=== PATIENT | female | born 2000 | race Caucasian/White ===

== ENCOUNTER 2024-11-01 08:54 | Outpatient (OUT) | payer BC, SELFPAY ==
--- NOTE | 2024-11-01 08:58 | US_ITS ---
[address] [address] Patient Name: JUAN BACON MRN: [id number] date: 2000 Sex: F Assigned Patient Location: US Current Patient Location: US Accession/Order Number: [id number] Exam Date: 11/01/2024 09:00 Report Date: 11/01/2024 11:51 At the request of: LUIS EDUARDO PERES Procedure: US OB cervical length EXAMINATION: US OB anatomy, US OB cervical length HISTORY: Related Condition Second Trimester COMPARISON: No relevant comparison available. TECHNIQUE: Transabdominal sonographic examination was performed for obstetrical and evaluation. FINDINGS: Number: 1 Heart Rate: 142.11 bpm H.B. /min Amniotic Fluid Volume: Subjectively normal Placental Location: Anterior with lower margin 2.6 cm from os. Cervix Length: 5.81 cm ; closed. ANATOMY: Normal Structures -cerebellum, choroid plexus, cisterna magna, lateral cerebral ventricles, orbits, midline falx, four-chamber heart, LVOT, stomach, kidneys, bladder, umbilical cord insertion into abdomen, three-vessel cord, cervical spine, thoracic spine, lumbar spine, sacral spine, right upper extremity, left upper extremity, right lower extremity, left lower extremity. SUBOPTIMALLY SEEN: Hard palate, right ventricle outflow tract. ABNORMALITIES: None BIOMETRY: BPD: 4.28 cm; 19 weeks 0 days; 6.60 % HC: 15.97 cm; 18 weeks 6 days; < 3 % AC: 13.49 cm; 19 weeks 0 days; 9.40 % FL: 3.07 cm; 19 weeks 4 days; 17 % EFW:277.18 g; 5.20 % FL/AC: 22.73 FL/BPD: 71.71 HC/AC: 1.18 GESTATIONAL AGE: Age by EDC: 20 weeks 2 days Age by current US: 19 weeks 1 day SONIA by current US: 2025-03-27 SONIA by EDC: 2025-03-19 US/US OB cervical length IMPRESSION: 1. Single live intrauterine with growth detailed above. 2. Suboptimal visualization of the hard palate and right ventricle outflow tract due to position. 3. Head circumference is <3rd percentile. 4. Low-lying anterior placenta. Electronically authenticated by: SHAREE MCCLOUD Date: 11/01/2024 11:51
--- NOTE | 2024-11-01 08:58 | US_ITS ---
[address] [address] Patient Name: JUAN BACON MRN: [id number] date: 2000 Sex: F Assigned Patient Location: US Current Patient Location: US Accession/Order Number: [id number] Exam Date: 11/01/2024 09:00 Report Date: 11/01/2024 11:51 At the request of: LUIS EDUARDO PERES Procedure: US OB anatomy EXAMINATION: US OB anatomy, US OB cervical length HISTORY: Related Condition Second Trimester COMPARISON: No relevant comparison available. TECHNIQUE: Transabdominal sonographic examination was performed for obstetrical and evaluation. FINDINGS: Number: 1 Heart Rate: 142.11 bpm H.B. /min Amniotic Fluid Volume: Subjectively normal Placental Location: Anterior with lower margin 2.6 cm from os. Cervix Length: 5.81 cm ; closed. ANATOMY: Normal Structures -cerebellum, choroid plexus, cisterna magna, lateral cerebral ventricles, orbits, midline falx, four-chamber heart, LVOT, stomach, kidneys, bladder, umbilical cord insertion into abdomen, three-vessel cord, cervical spine, thoracic spine, lumbar spine, sacral spine, right upper extremity, left upper extremity, right lower extremity, left lower extremity. SUBOPTIMALLY SEEN: Hard palate, right ventricle outflow tract. ABNORMALITIES: None BIOMETRY: BPD: 4.28 cm; 19 weeks 0 days; 6.60 % HC: 15.97 cm; 18 weeks 6 days; < 3 % AC: 13.49 cm; 19 weeks 0 days; 9.40 % FL: 3.07 cm; 19 weeks 4 days; 17 % EFW:277.18 g; 5.20 % FL/AC: 22.73 FL/BPD: 71.71 HC/AC: 1.18 GESTATIONAL AGE: Age by EDC: 20 weeks 2 days Age by current US: 19 weeks 1 day SONIA by current US: 2025-03-27 SONIA by EDC: 2025-03-19 US/US OB anatomy IMPRESSION: 1. Single live intrauterine with growth detailed above. 2. Suboptimal visualization of the hard palate and right ventricle outflow tract due to position. 3. Head circumference is <3rd percentile. 4. Low-lying anterior placenta. Electronically authenticated by: SHAREE MCCLOUD Date: 11/01/2024 11:51
== END 2024-11-01 08:55 | disposition home or self-care (01) ==
LOC: US 08:54
PROVIDERS: PCP Nurse Practitioner Family; Visit Provider Midwife
DX: O44.42 Low lying placenta NOS or without hemorrhage, second trimester (principal); O26.92 Pregnancy related conditions, unspecified, second trimester; Z3A.20 20 weeks gestation of pregnancy
CPT/HCPCS: 76805; 76817

== ENCOUNTER 2025-03-20 04:58 | Inpatient (IN) | payer BC, SELFPAY ==
--- OUTSIDE RECORDS SUMMARY | 2025-03-12 09:30 | XMS_ITS | Encounter Summary ---
Author Organization [facility] Address [address] [place] [address] Care Team Providers Care Soaking Room Operator Name Role Phone Lillie Barry NP Unavailable [phone] Amanda Urrutia MD Primary Care Provider Encounter Details Date Type Department Care Team (Latest Contact Info) Description 03/12/2025 9:30 AM EDT Routine [facility] [address] [place] [address] Krista Euceda, CNM [address] [place] [address] Encounter for supervision of other normal , third trimester ([facility]) (Primary Dx) Social History Tobacco Use Types Packs/Day Years Used Date Smoking Tobacco: Never Smokeless Tobacco: Never Alcohol Use Standard Drinks/Week Comments Not Currently 0 (1 standard drink = 0.6 oz pure alcohol) Caffeine: 4 cups of coffee daily Estimated Date of Delivery Comme nts Yes 03/19/2025 Based on last me nstrual period of 06/12/2024 (Exact Date) Sex and Gender Information Value Date Recorded Sex Assigned at Not on file Legal Sex Female 7:36 PM EDT Gender Identity Not on file Sexual Orientation Not on file documented as of this encounter Last Filed Vital Signs Vital Sign Reading Time Taken Comments Blood Pressure 110/60 03/12/2025 9:33 AM EDT Pulse - - Temperature - - Respiratory Rate - - Oxygen Saturation - - Inhaled Oxygen Concentration - - Weight 80.3 kg (177 lb) 03/12/2025 9:33 AM EDT Height - - Body Mass Index 32.37 05/06/2024 10:39 AM EDT documented in this encounter Progress Notes * Krista Euceda CNM - 03/12/2025 9:30 AM EDT Subjective No chief complaint on file. Stephanie Salas is a 25 y.o. at 39w0d with a working estimated date of delivery of 03/19/2025, by Last Menstrual Period who presents for a routine visit. She denies vaginal bleeding, leakage of fluid, decreased movements, or contractions. OB History Para Term AB Living 3 1 1 1 SAB IAB Ectopic Multiple Live Births # Outcome Date GA Lbr Yusuf/2nd Weight Sex Type Anes PTL Lv 3 Current 2 Term 01/12/22 40w0d 6 lb 4 oz F Vag-Spont N Comments: 2nd degree and right labial repair 1 Her is complicated by: Heart murmer sees cardiology Objective Physical Exam Weight: 177 lb Expected Total Weight Gain: 15 lb-25 lb Pregravid BMI: 27.25 BP: 110/60 Urine protein-negative Urine glucose-negative Assessment/Plan Continue vitamin. Labs reviewed. GBS taken. Expected mode of delivery vaginal Follow up in 1 week for a routine visit. documented in this encounter Plan of Treatment Upcoming Encounters Date Type Department Care Team (Late st Contact Info) Description 04/02/2025 11:30 AM EDT Telemedicine [facility] [address] [place] [address] Krista Euceda CNM [address] [place], [place] [id number] documented as of this encounter Visit Diagnoses Diagnosis Encounter for supervision of other normal , third trimester ([facility])- Primary documented in this encounter Care Teams Soaking Room Operator Relationship Specialty Start Date End Date Amanda Urrutia MD [address] [place], [place] [id number] PCP - General Family Medicine 04/10/24 Lillie Barry NP [address] [id number] Nurse Practitioner Family Medicine 04/10/24 documented as of this encounter
--- OUTSIDE RECORDS SUMMARY | 2025-03-18 09:30 | XMS_ITS | Encounter Summary ---
Author Organization [facility] Address [address] [place] [address] Care Team Providers Care Floatman Name Role Phone Lillie Barry NP Unavailable Amanda Urrutia MD Primary Care Provider [phone] Encounter Details Date Type Department Care Team (Latest Contact Info) Description 03/18/2025 9:30 AM EDT Routine [facility] [address] [place] [address] Krista Euceda, CNM [address] [place] [address] Encounter for supervision of other normal , third trimester ([facility]) (Primary Dx); History of cardiac murmur Social History Tobacco Use Types Packs/Day Years [...] Sign Reading Time Taken Comments Blood Pressure 118/80 03/18/2025 9:27 AM EDT Pulse - - Temperature - - Respiratory Rate - - Oxygen Saturation - - Inhaled Oxygen Concentration - - Weight 78.9 kg (174 lb) 03/18/2025 9:27 AM EDT Height - - Body Mass Index 31.83 05/06/2024 10:39 AM EDT documented in this encounter Progress Notes * Krista Euceda CNM - 03/18/2025 9:30 AM EDT Subjective No chief complaint on file. Stephanie Salas is a 25 y.o. at 39w6d with a working estimated date of delivery [...] repair 1 Her is complicated by: Heart murmer. Objective Physical Exam Weight: 174 lb Expected Total Weight Gain: 15 lb-25 lb Pregravid BMI: 27.25 BP: 118/80 Urine protein-negative Urine glucose-negative Assessment/Plan Continue vitamin. Labs reviewed. GBS taken. Expected mode of delivery Follow up in 1 week for a routine visit. documented in this encounter Plan of Treatment Upcoming Encounters Date Type Department Care Team (Late st Contact Info) Description 04/02/2025 11:30 AM EDT Telemedicine [facility] [address] [place] [address] Krista Euceda CNM [address] [place] [address] documented as of this encounter Visit Diagnoses Diagnosis Encounter for supervision of other normal , third trimester ([facility])- Primary History of cardiac murmur Personal history of other diseases of circulatory system documented in this encounter Care Teams Floatman Relationship Specialty Start Date End Date Amanda Urrutia MD [address] [place], [place] [phone] PCP - General Family Medicine 04/10/24 Lillie Barry NP [address] [place] [address] Nurse Practitioner Family Medicine 04/10/24 documented as of this encounter
[2025-03-20] VITALS (36 sets, daily range): BP systolic 92–129; BP diastolic 50–78; PULSE 49–95; TEMP 35.5–36.6
--- OUTSIDE RECORDS SUMMARY | 2025-03-20 05:05 | XMS_ITS | CCD ---
Author Organization [facility] Care Team Providers Care Collator Hand Name Role Phone MARKER, LUIS FERNANDO Unavailable Unavailable MARKER, LUIS FERNANDO Unavailable Unavailable MISC, DOCTOR Unavailable Unavailable PATRIC RUEDA Unavailable Unavailable SHAREE GUZMAN Attending Unaakila ilable MIKI PENALOZA Primary Care Unavailable MIKI PENALOZA Consulting Unavailable Miki Penaloza Primary Care Provider Miki Penaloza Primary Care Provider Miki Penaloza Primary Care Provider Gianna ESTRADA Audrey Primary Care Provider GIANNA AUDREY Primary Care Unavailable GIANNA, AUDREY Primary Care Unavailable CASSIUS HOSKINS Attending Unavailable Asha BI LEAD, Lillie Unavailable Amanda Urrutia MD Primary Care Provider Unavailable Primary Care Provider Unavailabl e Unavailable Primary Care Provider Unavailabl e FLORO, LUIS EDUARDO Referring Unavailable GALLO CASTROA Attending Unavailable FLORO, LUIS EDUARDO Referring Unavailable FLORO, LUIS EDUARDO Referring Unavailable BOUMEGOUAS, MANEL Attending Unavailable BOUMEGOUAS, MANEL Referring Unavailable BOUMEGOUAS, MANEL Attending Unavailable BOUMEGOUAS, MANEL Referring Unavailable FLORO, LUIS EDUARDO L Attending Unavailable FLORO, LUIS EDUARDO L Attending Unavailable FLORO, LUIS EDUARDO L Attending Unavailable FLORO, LUIS EDUARDO L Referring Unavailable FLORO, LUIS EDUARDO L Attending Unavailable FLORO, LUIS EDUARDO L Attending Unavailable KAMLILLIE ROJAS Attending Unavailable FLORO, LUIS EDUARDO L Attending Unavailable FLORO, LUIS EDUARDO L Attending Unavailable FLORO, LUIS EDUARDO L Attending Unavailable FLORO, LUIS EDUARDO L Attending Unavailable FLORO, LUIS EDUARDO L Attending Unavailable LUIS EDUARDO EUCEDA Attending Unavailable LILLIE BARRY Attending Unavailable LUIS EDUARDO EUCEDA Attending Unavailable LUIS EDUARDO EUCEDA Referring Unavailable LUIS EDUARDO EUCEDA Attending Unavailable LUIS EDUARDO EUCEDA Attending Unavailable LUIS EDUARDO EUCEDA Referring Unavailable Medications Current Medications Medication Drug Class(es) Dates Sig (Normalized) Sig (Original) acetaminophen 325 mg / HYDROcodone bitartrate 5 mg oral tablet (2 sources) Opioid Agonist Start: 09-06-2019 HYDROcodone-acetam inophen (NORCO) 5-325 MG per tablet 1 tablet Start: 09-06-2019 End: 09-13-2019 HYDROcodone-acetaminophen (N ORCO) 5-325 MG per tablet Indications: New ACL tear, right, initial encounter Take 1 tablet by mouth every 4 hours as needed for Pain for up to 7 days. Intended supply: 3 days. Take lowest dose possible to manage pain 30 tablet 0 09/06/2019 09/13/2019 Active benzocaine 200 mg/ml / menthol 5 mg/ml topical spray (1 source) Standardized Chemical Allergen Start: 01-12-2022 benzocaine-menthol (DERMOPLAST) 20-0.5 % spray cefdinir 300 mg oral capsule (1 source) Cephalosporin Antibacterial Start: 01-17-2022 End: 01-24-2022 take 1 capsule by mouth twice daily cefdinir (OMNICEF) 300 MG capsule Take 1 capsule by mouth 2 times daily for 7 days 14 capsule 0 01/17/2022 01/24/2022 Active cephalexin 500 mg oral capsule (3 sources) Cephalosporin Antibacterial Start: 02-19-2023 End: 02-24-2023 take 1 capsule by mouth twice daily cephALEXin (KEFLEX) 500 MG capsule Take 1 capsule by mouth 2 times daily for 5 days 10 capsule 0 02/19/2023 02/19/2023 Discontinued (REORDER) Start: 02-19-2023 End: 02-19-2023 take 1 dose by mouth once 500 mg, Oral, ONCE, 1 dose, On 02/19/23 at 0445 Antimicrobial Indications: Urinary Tract Infection docusate sodium 100 mg oral capsule (4 sources) Start: 01-12-2022 take 1 capsule by mouth twice daily as needed for constipation docusate sodium (COLACE) 100 MG capsule Take 1 capsule by mouth 2 times daily as needed for Constipation 60 capsule 0 01/13/2022 Active 2 ml fentaNYL 0.05 mg/ml injection (2 sources) Opioid Agonist Start: 09-06-2019 fentaNYL (SUBLIMAZE) injection 50 mcg Start: 09-06-2019 fentaNYL (SUBL IMAZE) injection 25 mcg ibuprofen 800 mg oral tablet (4 sources) Nonsteroidal Anti-inflammatory Drug Start: 01-12-2022 take 1 tablet by mouth every eight hours ibuprofen (ADVIL;MOTRIN) 800 MG tablet Take 1 tablet by mouth every 8 hours 60 tablet 0 01/13/2022 Active lanolin 1000 mg/ml topical cream (1 source) Start: 01-12-2022 lansinoh lanolin ointment 1 ml methylergonovine maleate 0.2 mg/ml injection (1 source) Ergot Derivative Start: 01-12-2022 methylergonovine (METHERGINE) injection 200 mcg 2 ml metoclopramide 5 mg/ml prefilled syringe (1 source) Dopamine-2 Receptor Antagonist Start: 09-06-2019 End: 09-06-2019 metoclopramide (REGLAN) injection 10 mg miSOPROStol 0.1 mg oral tablet (1 source) Prostaglandin E1 Analog Start: 01-12-2022 miSOPROStol (CYTOTEC) tablet 800 mcg ondansetron 4 mg disintegrating oral tablet (3 sources) Serotonin-3 Receptor Antagonist Start: 01-12-2022 ondansetron (ZOFRAN-ODT) disintegrating tablet 8 mg Start: 10-31-2021 End: 10-31-2021 ondansetron (ZOFRAN) injecti on 4 mg Start: 09-06-2019 End: 09-06-2019 ondansetron (ZOFRAN) injecti on 4 mg oxyCODONE hydrochloride 5 mg oral tablet (1 source) Opioid Agonist Start: 09-06-2019 End: 09-06-2019 oxyCODONE (ROXICODONE) immediate release tablet 5 mg phenazopyridine hydrochloride 97.2 mg oral tablet (1 source) Start: 02-19-2023 End: 02-22-2023 take 1 tablet by mouth three times daily as needed for pain phenazopyridine (PYRIDIUM) 97.2 MG tablet Take 1 tablet by mouth 3 times daily as needed for Pain 10 tablet 0 02/19/2023 02/22/2023 Active MV & Min w/FA-DHA ( Gummies) 0.18-25 MG chewable tablet (20 sources) MV & Mi n w/FA-DHA ( Gummies) 0.18-25 MG chewable tablet Chew Active [id number] acid ( 19) 29 mg iron- 1 mg tablet,chewable (4 sources) [id number] acid ( 19) 29 mg iron- 1 mg tablet,chewable Chew 1 tablet and swallow in the morning. Active Vit-Fe Fumarate-FA ( VITAMINS PO) (4 sources) Vit-Fe Fumarate-FA ( VITAMINS PO) Take by mouth 0 Active witch shun 500 mg/ml medicated pad (1 source) Start: 01-12-2022 witch shun-glycerin (TUCKS) pad Completed/Discontinued Medications Medication Drug Class(es) Dates Sig (Normalized) Sig (Original) acetaminophen 325 mg oral tablet (4 sources) Start: 01-17-2022 End: 01-17-2022 acetaminophen (TYLENOL) tablet 650 mg Start: 01-12-2022 acetaminophen (TYLENOL) tablet 650 mg Start: 10-31-2021 End: 10-31-2021 acetaminophen (TYLENOL) tabl et 1,000 mg Start: 09-06-2019 End: 09-06-2019 acetaminophen (TYLENOL) tabl et 650 mg calcium chloride 0.0014 meq/ ml / potassium chloride 0.004 meq/ml / sodium chloride 0.103 meq/ml / sodium lactate 0.028 meq/ml injectable solution (3 sources) Start: 01-11-2022 End: 01-12-2022 lactated ringers infusion Start: 10-31-2021 End: 10-31-2021 lactated ringers infusion 50 0 mL Start: 09-06-2019 lactated ringe rs infusion ceFAZolin (ANCEF) 2 g in dextrose 5 % 100 mL IVPB (1 source) Start: 09-06-2019 End: 09-06-2019 ceFAZolin (ANCEF) 2 g in dextrose 5 % 100 mL IVPB cefTRIAXone (ROCEPHIN) 1000 mg IVPB in 50 mL D5W minibag (1 source) Start: 01-17-2022 End: 01-17-2022 cefTRIAXone (ROCEPHIN) 1000 mg IVPB in 50 mL D5W minibag dimenhyDRINATE 50 mg oral tablet (1 source) Start: 09-06-2019 End: 09-06-2019 dimenhyDRINATE (DRAMAMINE) tablet 50 mg iopamidol (ISOVUE-370) 76 % injection 75 mL (1 source) Start: 01-17-2022 End: 01-17-2022 iopamidol (ISOVUE-370) 76 % injection 75 mL ketorolac tromethamine 10 mg oral tablet (2 sources) Nonsteroidal Anti-inflammatory Drug, Cyclooxygenase Inhibitor Start: 09-06-2019 End: 10-31-2021 take 1 tablet by mouth three times daily ketorolac (TORADOL) 10 MG tablet Take 1 tablet by mouth 3 times daily for 5 days 15 tablet 0 09/06/2019 10/31/2021 Discontinued (LIST CLEANUP) Levonorgestrel-Ethin yl Estrad (LILLOW PO) (2 sources) End: 10-31-2021 Levonorgestrel-Ethi nyl Estrad (LILLOW PO) Take by mouth daily 0 10/31/2021 Discontinued (LIST CLEANUP) Levonorgestrel-E thinyl Estrad (LILLOW PO) Take by mouth daily 0 Active 1 ml nalbuphine hydrochloride 10 mg/ml injection (1 source) Opioid Agonist/Antagonist Start: 01-11-2022 End: 01-12-2022 nalbuphine (NUBAIN) injection 10 mg NONFORMULARY (1 source) End: 08-27-2019 take 1 tablet by mouth once daily NONFORMULARY Take 1 tablet by mouth daily control 0 08/27/2019 Discontinued (Therapy completed) oxytocin (PITOCIN) 30 units in 500 mL infusion (1 source) Start: 01-11-2022 End: 01-12-2022 oxytocin (PITOCIN) 30 units in 500 mL infusion 50 ml sodium chloride 9 mg/ml injection (4 sources) Start: 01-17-2022 End: 01-17-2022 0.9 % sodium chloride IV bolus 1,854 mL Start: 01-12-2022 0.9 % sodium c hloride infusion Start: 01-12-2022 sodium chlorid e flush 0.9 % injection 5-40 mL Problems Active Problems Problem Classification Problem Date Documented Date Episodic/Chronic Anxiety disorders (20 sources) Generalized anxiety disorder; Translations: [Generalized anxiety disorder] Onset: 04-12-2024 04-12-2024 Chronic Asthma (20 sources) Exercise induced bronchospasm; Translations: [Exercise induced bronchospasm] Onset: 04-12-2024 04-12-2024 Chronic Cardiac dysrhythmias (8 sources) Palpitations; Translations: [Palpitations] Onset: 01-20-2025 11-19-2024 Episodic External Injury - Unspecified (1 source) Activity, non-running track and field events; Translations: [ACTV NON-RUNNING TRACK FIELD EVENTS] Onset: 01-25-2018 Menstrual disorders (10 sources) Amenorrhea; Translations: [Amenorrhea, unspecified] 09-14-2024 Chronic Other circulatory disease (6 sources) History of clinical finding in subject; Translations: [Personal history of other diseases of the circulatory system] 11-19-2024 Episodic Other complications of (4 sources) Finding related to ; Translations: [ related conditions, unspecified, second trimester] 10-01-2024 Episodic Other connective tissue disease (3 sources) Pain in left leg; Translations: [PAIN IN LEFT LEG] Onset: 01-23-2018 Episodic Other and delivery including normal (20 sources) Normal labor; Translations: [Encounter for full-term uncomplicated delivery] Onset: 01-11-2022 Episodic Other screening for suspected conditions (not mental disorders or infectious disease) (10 sources) Patient encounter status; Translations: [Encounter for screening for diabetes mellitus] Onset: 12-27-2024 12-17-2024 Episodic Residual codes; unclassified (1 source) Gestation period, 28 weeks; Translations: [28 weeks gestation of ] 12-27-2024 Episodic Residual codes; unclassified (1 source) 28 weeks gestation of ; Translations: [28 weeks gestation of ] Onset: 12-27-2024 Episodic Unclassified (1 source) Overexertion from strenuous movement or load, initial encounter; Translations: [OVEREXERT STRENUOUS MVMT/LOAD INIT] Onset: 01-25-2018 Unclassified (1 source) FGR Onset: 12-27-2024 Unclassified (1 source) New Patient Onset: 01-20-2025 Urinary tract infections (4 sources) Acute urinary tract infection; Translations: [Urinary tract infection, site not specified] Onset: 02-19-2023 Episodic Viral infection (1 source) Disease caused by 2019-nCoV; Translations: [COVID-19] Episodic Past or Other Problems Problem Classification Problem Date Documented Da te Episodic/Chronic Genitourinary symptoms and ill-defined conditions (1 source) History of urinary tract infection; Translations: [Personal history of urinary (tract) infections] 05-17-2024 Episodic Heart valve disorders (20 sources) Heart murmur; Translations: [Cardiac murmur, unspecified] Onset: 04-12-2024 04-12-2024 Episodic Residual codes; unclassified (4 sources) Gestation period, 40 weeks; Translations: [40 weeks gestation of ] Onset: 01-13-2022 Episodic Spondylosis; intervertebral disc disorders; other back problems (20 sources) Lumbar radiculopathy; Translations: [Radiculopathy, lumbar region] Onset: 04-12-2024 04-12-2024 Episodic Sprains and strains (2 sources) Strain of left Achilles tendon, initial encounter; Translations: [Sprain of anterior cruciate ligament of knee] Onset: 01-25-2018 Episodic Syncope (20 sources) Vasovagal syncope; Translations: [Syncope and collapse] Onset: 04-12-2024 04-12-2024 Episodic Unclassified (2 sources) History of clinical finding in subject 11-19-2024 Unclassified (1 source) Patient encounter status 12-30-2024 NEGATED: Highlighted row has been ruled out!Unclassified (1 source) No known active problems 09-06-2019 Results Test Name Value Interpretation Reference Range Facility POCT EKGon 01-20-2025 [facility] US OB FOLLOW UP TRANSABDOMIN AL APPROACHon 12-23-2024 US OB FOLLOW UP TRANSABDOMINAL APPROACH EXAM: US OB FOLLOW UP TRANSABDOMINAL APPROACH HISTORY: Small for gestational age. COMPARISON: OB ultrasound 11/01/2024. TECHNIQUE: Two-dimensional transabdominal grayscale ultrasound imaging of the pelvis was performed. FINDINGS: Gestation: Single Presentation: Breech Cardiac Activity: 160 beats per minute Placental Location: Anterior with no sonographic abnormalities identified. Cervical Length: 4.5 cm Amniotic Fluid Index: 13.7 cm MEASUREMENTS: BPD: 6.3 cm EGA: 25 weeks 4 days HC: 24.1 cm EGA: 26 weeks 1 days AC: 19.9 cm EGA: 24 weeks 4 days FL: 4.9 cm EGA: 26 weeks 2 days HC/AC Ratio: 1.21 The gestational age by today's ultrasound is 25 weeks 4 days. Estimated Weight: 806 grams, ( 1 lb 12 oz). Weight Percentile for gestational age: 1 % IMPRESSION: 1. Single, live intrauterine gestation 27 weeks, 5 days by LMP. Today's ultrasound measurements correlate with a gestational age of 25 weeks 4 days. Estimated weight is 806 grams, ( 1 lb 12 oz) which correlates to 1 %. SONIA is 04/03/2025. 2. growth is small for gestational age. 3. Unremarkable placental tip to cervix. Low-lying placenta has resolved. Electronically Signed:Electronical ly signed by BALBINA HARRIS II, MD, PHD at 24-Dec-2024 11:34:59 PM [facility] Normal Not Available No Panel InformationOrdered By: Radiologist Radiology on 11-01-2024 [facility] Work Phone: No Panel Informationon 11-01 Radiology Study observation (narrative) [facility] US OB ANATOMYon 11-01-2024 [place] [address] Ultrasound Report Signed Patient: STEPHANIE SALAS MR#: [id number] : 2000 Acct:[id number] Age/Sex: 24 / F ADM Date: 11/01/24 Loc: US Attending Dr: LUIS EDUARDO EUCEDA APRN, CNM Ordering Physician: LUIS EDUARDO EUCEDA APRN, CNM Date of Service: 11/01/24 Procedure(s): US OB anatomy Accession Number(s): [id number] cc: LUIS EDUARDO EUCEDA APRN, CNM; Lillie Barry NP [address] [address] Patient Name: STEPHANIE SALAS MRN: [id number] date: 2000 Sex: F Assigned Patient Location: US Current Patient Location: US Accession/Order Number: [id number] Exam Date: 11/01/2024 09:00 Report Date: 11/01/2024 11:51 At the request of: LUIS EDUARDO EUCEDA Procedure: US OB anatomy EXAMINATION: US OB anatomy, US OB cervical length HISTORY: Related Condition Second Trimester COMPARISON: No relevant comparison available. TECHNIQUE: Transabdominal sonographic examination was performed for obstetrical and evaluation. FINDINGS: Number: 1 Heart Rate: 142.11 bpm H.B. /min Amniotic Fluid Volume: Subjectively normal Placental Location: Anterior with lower margin 2.6 cm from os. Cervix Length: 5.81 cm ; closed. ANATOMY: Normal Structures -cerebellum, choroid plexus, cisterna magna, lateral cerebral ventricles, orbits, midline falx, four-chamber heart, LVOT, stomach, kidneys, bladder, umbilical cord insertion into abdomen, three-vessel cord, cervical spine, thoracic spine, lumbar spine, sacral spine, right upper extremity, left upper extremity, right lower extremity, left lower extremity. SUBOPTIMALLY SEEN: Hard palate, right ventricle outflow tract. ABNORMALITIES: None BIOMETRY: BPD: 4.28 cm; 19 weeks 0 days; 6.60 % HC: 15.97 cm; 18 weeks 6 days; < 3 % AC: 13.49 cm; 19 weeks 0 days; 9.40 % FL: 3.07 cm; 19 weeks 4 days; 17 % EFW:277.18 g; 5.20 % FL/AC: 22.73 FL/BPD: 71.71 HC/AC: 1.18 GESTATIONAL AGE: Age by EDC: 20 weeks 2 days Age by current US: 19 weeks 1 day SONIA by current US: 2025-03-27 SONIA by EDC: 2025-03-19 US/US OB anatomy IMPRESSION: 1. Single live intrauterine with growth detailed above. 2. Suboptimal visualization of the hard palate and right ventricle outflow tract due to position. 3. Head circumference is <3rd percentile. 4. Low-lying anterior placenta. Electronically authenticated by: SHAREE FLETCHER Date: 11/01/2024 11:51 Dictated By: Sharee Fletcher M.D. Signed By: 11/01/24 1153 DD/ 1151 TD/TT: Senior Corporate Recruiter: [facility] Radiology, Radiologist, MD - 11/01/2024 [place] [address] Ultrasound Report Signed Patient: STEPHANIE SALAS MR#: [id number] : 2000 Acct:[id number] Age/Sex: 24 / F ADM Date: 11/01/24 Loc: US Attending Dr: LUIS EDUARDO EUCEDA APRN, CNM Ordering Physician: LUIS EDUARDO EUCEDA APRN, CNM Date of Service: 11/01/24 Procedure(s): US OB anatomy Accession Number(s): [id number] cc: LUIS EDUARDO EUCEDA APRN, CNM; Lillie Barry NP [facility] [place] [address] Patient Name: STEPHANIE SALAS MRN: [facility]:[id number] date: 2000 Sex: F Assigned Patient Location: US Current Patient Location: US Accession/Order Number: [id number] Exam Date: 11/01/2024 09:00 Report Date: 11/01/2024 11:51 At the request of: LUIS EDUARDO EUCEDA Procedure: US OB anatomy EXAMINATION: US OB anatomy, US OB cervical length HISTORY: Related Condition Second Trimester COMPARISON: No relevant comparison available. TECHNIQUE: Transabdominal sonographic examination was performed for obstetrical and evaluation. FINDINGS: Number: 1 Heart Rate: 142.11 bpm H.B. /min Amniotic Fluid Volume: Subjectively normal Placental Location: Anterior with lower margin 2.6 cm from os. Cervix Length: 5.81 cm ; closed. ANATOMY: Normal Structures -cerebellum, choroid plexus, cisterna magna, lateral cerebral ventricles, orbits, midline falx, four-chamber heart, LVOT, stomach, kidneys, bladder, umbilical cord insertion into abdomen, three-vessel cord, cervical spine, thoracic spine, lumbar spine, sacral spine, right upper extremity, left upper extremity, right lower extremity, left lower extremity. SUBOPTIMALLY SEEN: Hard palate, right ventricle outflow tract. ABNORMALITIES: None BIOMETRY: BPD: 4.28 cm; 19 weeks 0 days; 6.60 % HC: 15.97 cm; 18 weeks 6 days; < 3 % AC: 13.49 cm; 19 weeks 0 days; 9.40 % FL: 3.07 cm; 19 weeks 4 days; 17 % EFW:277.18 g; 5.20 % FL/AC: 22.73 FL/BPD: 71.71 HC/AC: 1.18 GESTATIONAL AGE: Age by EDC: 20 weeks 2 days Age by current US: 19 weeks 1 day SONIA by current US: 2025-03-27 SONIA by EDC: 2025-03-19 US/US OB anatomy IMPRESSION: 1. Single live intrauterine with growth detailed above. 2. Suboptimal visualization of the hard palate and right ventricle outflow tract due to position. 3. Head circumference is <3rd percentile. 4. Low-lying anterior placenta. Electronically authenticated by: SHAREE FLETCHER Date: 11/01/2024 11:51 Dictated By: Sharee Fletcher M.D. Signed By: 11/01/24 1153 DD/ 1151 TD/TT: Senior Corporate Recruiter: [facility] CERVICAL LENGTHon 10-19 [place] [address] Ultrasound Report Signed Patient: STEPHANIE SALAS MR#: [id number] : 2000 Acct:[id number] Age/Sex: 24 / F ADM Date: 11/01/24 Loc: US Attending Dr: LUIS EDUARDO EUCEDA APRN, CNM Ordering Physician: LUIS EDUARDO EUCEDA APRN, CNM Date of Service: 11/01/24 Procedure(s): US OB cervical length Accession Number(s): [id number] cc: LUIS EDUARDO EUCEDA APRN, CNM; Lillie Barry NP [address] [address] Patient Name: STEPHANIE SALAS MRN: [id number] date: 2000 Sex: F Assigned Patient Location: US Current Patient Location: US Accession/Order Number: [id number] Exam Date: 11/01/2024 09:00 Report Date: 11/01/2024 11:51 At the request of: LUIS EDUARDO EUCEDA Procedure: US OB cervical length EXAMINATION: US OB anatomy, US OB cervical length HISTORY: Related Condition Second Trimester COMPARISON: No relevant comparison available. TECHNIQUE: Transabdominal sonographic examination was performed for obstetrical and evaluation. FINDINGS: Number: 1 Heart Rate: 142.11 bpm H.B. /min Amniotic Fluid Volume: Subjectively normal Placental Location: Anterior with lower margin 2.6 cm from os. Cervix Length: 5.81 cm ; closed. ANATOMY: Normal Structures -cerebellum, choroid plexus, cisterna magna, lateral cerebral ventricles, orbits, midline falx, four-chamber heart, LVOT, stomach, kidneys, bladder, umbilical cord insertion into abdomen, three-vessel cord, cervical spine, thoracic spine, lumbar spine, sacral spine, right upper extremity, left upper extremity, right lower extremity, left lower extremity. SUBOPTIMALLY SEEN: Hard palate, right ventricle outflow tract. ABNORMALITIES: None BIOMETRY: BPD: 4.28 cm; 19 weeks 0 days; 6.60 % HC: 15.97 cm; 18 weeks 6 days; < 3 % AC: 13.49 cm; 19 weeks 0 days; 9.40 % FL: 3.07 cm; 19 weeks 4 days; 17 % EFW:277.18 g; 5.20 % FL/AC: 22.73 FL/BPD: 71.71 HC/AC: 1.18 GESTATIONAL AGE: Age by EDC: 20 weeks 2 days Age by current US: 19 weeks 1 day SONIA by current US: 2025-03-27 SONIA by EDC: 2025-03-19 US/US OB cervical length IMPRESSION: 1. Single live intrauterine with growth detailed above. 2. Suboptimal visualization of the hard palate and right ventricle outflow tract due to position. 3. Head circumference is <3rd percentile. 4. Low-lying anterior placenta. Electronically authenticated by: SHAREE FLETCHER Date: 11/01/2024 11:51 Dictated By: Sharee Fletcher M.D. Signed By: 11/01/24 1153 DD/ 1151 TD/TT: Senior Corporate Recruiter: [facility] Radiology, Radiologist, - 11/01/2024 [place] [address] Ultrasound Report Signed Patient: STEPHANIE SALAS MR#: [id number] : 2000 Acct:[id number] Age/Sex: 24 / F ADM Date: 11/01/24 Loc: US Attending Dr: LUIS EDUARDO EUCEDA APRN, CNM Ordering Physician: LUIS EDUARDO EUCEDA APRN, CNM Date of Service: 11/01/24 Procedure(s): US OB cervical length Accession Number(s): [id number] cc: LUIS EDUARDO EUCEDA APRN, CNM; Lillie Barry NP [place] [address] Patient Name: STEPHANIE SALAS MRN: [id number] date: 2000 Sex: F Assigned Patient Location: US Current Patient Location: US Accession/Order Number: [id number] Exam Date: 11/01/2024 09:00 Report Date: 11/01/2024 11:51 At the request of: LUIS EDUARDO EUCEDA Procedure: US OB cervical length EXAMINATION: US OB anatomy, US OB cervical length HISTORY: Related Condition Second Trimester COMPARISON: No relevant comparison available. TECHNIQUE: Transabdominal sonographic examination was performed for obstetrical and evaluation. FINDINGS: Number: 1 Heart Rate: 142.11 bpm H.B. /min Amniotic Fluid Volume: Subjectively normal Placental Location: Anterior with lower margin 2.6 cm from os. Cervix Length: 5.81 cm ; closed. ANATOMY: Normal Structures -cerebellum, choroid plexus, cisterna magna, lateral cerebral ventricles, orbits, midline falx, four-chamber heart, LVOT, stomach, kidneys, bladder, umbilical cord insertion into abdomen, three-vessel cord, cervical spine, thoracic spine, lumbar spine, sacral spine, right upper extremity, left upper extremity, right lower extremity, left lower extremity. SUBOPTIMALLY SEEN: Hard palate, right ventricle outflow tract. ABNORMALITIES: None BIOMETRY: BPD: 4.28 cm; 19 weeks 0 days; 6.60 % HC: 15.97 cm; 18 weeks 6 days; < 3 % AC: 13.49 cm; 19 weeks 0 days; 9.40 % FL: 3.07 cm; 19 weeks 4 days; 17 % EFW:277.18 g; 5.20 % FL/AC: 22.73 FL/BPD: 71.71 HC/AC: 1.18 GESTATIONAL AGE: Age by EDC: 20 weeks 2 days Age by current US: 19 weeks 1 day SONIA by current US: 2025-03-27 SONIA by EDC: 2025-03-19 US/US OB cervical length IMPRESSION: 1. Single live intrauterine with growth detailed above. 2. Suboptimal visualization of the hard palate and right ventricle outflow tract due to position. 3. Head circumference is <3rd percentile. 4. Low-lying anterior placenta. Electronically authenticated by: SHAREE FLETCHER Date: 11/01/2024 11:51 Dictated By: Sharee Fletcher M.D. Signed By: 11/01/24 1153 DD/ 1151 TD/TT: Senior Corporate Recruiter: [facility] Healthcare Bacteria identified Cx Nom ( U)on 09-05-2024 Appearance (U) Adequate [facility] Internal identifier for Provider [id number] [facility] Specimen source Nom (Unsp spec) URINE [facility] STATUS FINAL [facility] - Drug toxicology on 09-05-2024 1-Wiadabejds-2,5-Dimethy l-3,3-Diphenylpyrrolidin e (EDDP) Ql (U) Negative NINF - 100 ng/mL [facility] Amphetamines Ql (U) Negative NINF - 5 00 ng/mL [facility] Barbiturates Ql (U) Negative NINF - 3 00 ng/mL [facility] Benzodiazepines Ql (U) Negative NINF - 100 ng/mL [facility] Benzoylecgonine Ql (U) Negative NINF - 150 ng/mL [facility] Opiates Ql (U) Negative NINF - 100 ng/mL [facility] oxyCODONE Ql (U) Negative NINF - 100 ng/mL [facility] Phencyclidine Ql (U) Negative NINF - 25 ng/mL [facility] Tetrahydrocannabinol Screen method >20 ng/mL Ql (U) Negative NINF - 20 ng[facility] - Microbiology an d Antimicrobial susceptibilityon 09-05-2024 Bacteria identified Cx Nom (U) SEE NOTE [facility] Comment on above: Mixed genital nury isolated. These superficial bacteria are not indicative of a urinary tract infection. No further organism identification is warranted on this specimen. If clinically indicated, recollect clean-catch, mid-stream urine and transfer immediately to Urine Culture Transport Tube. Laboratory - Urinalysison Bacteria LM.HPF (Urine sed) [#/Area] FEW Abnormal NONE SEEN /HPF [facility] Epithelial cells.squamous LM.HPF (Urine sed) [#/Area] 10-20 Abnormal < OR = 5 /HPF [facility] Hyaline casts (Urine sed) [#/Area] NONE SEEN NONE SEEN /LPF [facility] RBC LM.HPF (Urine sed) [#/Area] NONE SEEN < OR = 2 /HPF [facility] WBC LM.HPF (Urine sed) [#/Area] 0-5 < OR = 5 /HPF [facility] N. gonorrhoeae DNA CHARBEL+probe Ql (Cervical mucus)on 09-05-2024 C. trachomatis rRNA CHARBEL+probe Ql (Unsp spec) Not detected NOT DETECTED [facility] N. gonorrhoeae rRNA CHARBEL+probe Ql (Unsp spec) Not detected NOT DETECTED [facility] No Panel Informationon 09-05 (ALWAYS MESSAGE) [facility] Comment on above: See Note 1 Note 1 This drug testing is for medical treatment only. Analysis was performed as non-forensic testing and these results should be used only by healthcare providers to render diagnosis or treatment, or to monitor progress of medical conditions. For assistance with interpreting these drug results, please contact a [employer] Toxicology Specialist: [phone] ( [phone] M-F, 8am-6pm EST. The analytical perfo rmance characteristics of this assay, when used to test SurePath(TM) specimens have been determined by [employer]. The modifications have not been cleared or approved by the FDA. This assay has been validated pursuant to the CLIA regulations and is used for clinical purposes. For additional information, please refer to https://education.Ogone/faq/IBE647 (This link is being provided for information/ educational purposes only.) Interpretation and review of laboratory results Abnormal [facility] Performing Organization Information Site ID: QPT Name: [employer] [facility] Address: [address] [place] [id number] Director: Melvin Flood MD [facility] Auto (Bld)on 09-03 Erythrocyte distribution width (RBC) [Ratio] 11.9 % 11.0 - 15.0 % [facility] Hematocrit (Bld) [Volume fraction] 40.6 % 35.0 - 45.0 % [facility] Hemoglobin (Bld) [Mass/Vol] 13.9 g/dL 11.7 - 15.5 g/dL [facility] MCH (RBC) [Entitic mass] 31.7 pg 27. 0 - 33.0 pg [facility] MCHC (RBC) [Mass/Vol] 34.2 g/dL 32.0 - 36.0 g/dL [facility] Comment on above: For adults, a slight decrease in the calculated MCHC value (in the range of 30 to 32 g/dL) is most likely not clinically significant; however, it should be interpreted with caution in correlation with other red cell parameters and the patient's clinical condition. MCV (RBC) [Entitic vol] 92.5 fL 80.0 - 100.0 fL [facility] Platelet mean volume (Bld) [Entitic vol] 10.8 fL 7.5 - 12.5 fL [facility] Platelets (Bld) [#/Vol] 259 10*3/uL [facility] RBC (Bld) [#/Vol] 4.39 10*6/uL [facility] WBC (Bld) [#/Vol] 10.1 10*3/uL [facility] Laboratory - Blood bankon ABO group Nom (Bld) O [facility] Blood group antibody screen Ql Detected [facility] Comment on above: Reference range No antibodies detected This assay is a screening test for the detection of red blood cell antibodies. The test is not to be used for pretransfusion screening or for the medical management of an alloimmunized . Rh Nom (Bld) Positive [facility] are Comment on above: For additional information, please refer to http://education.[employer]/faq/PLS663 (This link is being provided for informational/ educational purposes only.) Laboratory - Chemistry and C hemistry - challengeon 09-03-2024 TSH Qn 4.35 m[IU]/L mIU/L [facility] are Comment on above: Reference Range > or = 20 Years 0.40-4.50 Ranges First trimester 0.26-2.66 Second trimester 0.55-2.73 Third trimester 0.43-2.91 Laboratory - Hematology and Cell countson 09-03-2024 HbA1c (Bld) [Mass fraction] 4.6 % NINF [facility] Comment on above: For the purpose of s creening for the presence of diabetes: <5.7% Consistent with the absence of diabetes 5.7-6.4% Consistent with increased risk for diabetes (prediabetes) > or =6.5% Consistent with diabetes This assay result is consistent with a decreased risk of diabetes. Currently, no consensus exists regarding use of hemoglobin A1c for diagnosis of diabetes in children. According to [place] Diabetes Association (ADA) guidelines, hemoglobin A1c <7.0% represents optimal control in non- diabetic patients. Different metrics may apply to specific patient populations. Standards of Medical Care in Diabetes(ADA). Laboratory - Microbiology an d Antimicrobial susceptibilityon 09-03-2024 HBV surface Ag IA Ql Non-Reactive NON-REACTIVE [facility] Comment on above: For additional information, please refer to http://[employer].Ogone/faq/TOK079 (This link is being provided for informational/ educational purposes only.) HCV Ab IA Ql Non-Reactive NON-REACTIVE [facility] Comment on above: HCV antibody was non-reactive. There is no laboratory evidence of HCV infection. In most cases, no further action is required. However, if recent HCV exposure is suspected, a test for HCV RNA (test code 53443) is suggested. For additional information please refer to http://education.Ogone/faq/IQX07e4 (This link is being provided for informational/ educational purposes only.) HIV 1+2 Ab+HIV1 p24 Ag IA Ql Non-Reactive NON-REACTIVE [facility] Comment on above: HIV-1 antigen and HI V-1/HIV-2 antibodies were not detected. There is no laboratory evidence of HIV infection. PLEASE NOTE: This information has been disclosed to you from records whose confidentiality may be protected by state law. If your state requires such protection, then the state law prohibits you from making any further disclosure of the information without the specific written consent of the person to whom it pertains, or as otherwise permitted by law. A general authorization for the release of medical or other information is NOT sufficient for this purpose. For additional information please refer to http://education.Ogone/faq/DFD962 (This link is being provided for informational/ educational purposes only.) The performance of this assay has not been clinically validated in patients less than 2 years old. Reagin Ab RPR Ql (S) Non-Reactive NON-REACTIVE [facility] Rubella virus IgG Qn (S) 3.13 [IU]/mL Index [facility] Comment on above: Index Interpretation ----- <0.90 Not consistent with immunity 0.90-0.99 Equivocal > or = 1.00 Consistent with immunity The presence of rubella IgG antibody suggests immunization or past or current infection with rubella virus. No Panel Informationon 09-03 MULTIPLE COLLECTION TIMES FOR SAME TEST TYPE. [facility] Organization Information Site ID: QPT Name: [employer] [facility] Address: [address] [place] [address], [address] [place] [id number] Director: Melvin Flood MD [facility] CBC without diffon 4 Platelets (Bld) [#/Vol] 259 10*3/uL [facility] Chlamydia/GC by PCR ThinPrep fluidon 09-02-2024 Gonorrhoeae Dna(Pcr) Not detected [facility] Chlamydia/GC by PCR urineon 09-02-2024 Chlamydia Dna(Pcr) Not detected [facility] Drug Screen, Urineon [address] [facility] Opiates Negative [facility] HIV 1&2 AB/AG Screen (P24 AG )on 09-02-2024 HIV 1&2 AB/AG Non-Reactive [facility] Hemoglobin A1con 09-02-2024 HbA1c (Bld) [Mass fraction] 4.6 % 4.0 - 6.0 % [facility] Hepatitis B surface antigeno n 09-02-2024 Hepatitis B Surface Antigen Non-Reactive [facility] Hepatitis C(HCV) Ab w/ Refle x to PCRon 09-02-2024 HCV Ab Ql (S) Non-Reactive [facility] Laboratory - Hematology and Cell countson 09-02-2024 Hematocrit (Bld) [Volume fraction] 40.6 % [facility] Hemoglobin (Bld) [Mass/Vol] 13.9 g/dL [facility] No Panel Informationon 09-02 [facility] Rubella IGG immune statuson 09-02-2024 Rubella immune IgG 3.13 [facility] Type and screenon 09-02-2024 Abo/Rh(D) Positive [facility] HCG ( test) Ql (U)o n 08-12-2024 Interpretation and review of laboratory results Abnormal [facility] Preg Test, Ur Positive Negative [facility] Urinalysis macro (dipstick) panel (U)on 05-17-2024 Bilirubin, UA Negative Negative - 4(70) +++ mg/dL [facility] Blood, UA Negative Negative - 50 Nikolai/mcL [facility] Clarity, UA Clear [facility] re Color, UA Yellow [facility] Glucose, UA Negative Negative - 1999(110) ++++ mg/dL [facility] Interpretation and review of laboratory results Normal [facility] Ketones, UA Negative Negative - 160(16) ++++ mg/dL [facility] Leukocytes, UA Negative Negative - 500+++ Tom/mcL [facility] Nitrite, UA Negative Negative - Positive [facility] pH, UA 5.0 5 - 9 [facility] Protein, UA Negative Negative - 1999(20) ++++ mg/dL [facility] Spec Grav, UA 1.010 1 - 1.03 [facility] Urobilinogen, UA 1.0 0.2 - 12 mg/dL [facility] Cult,Urineon 06-19-2023 Cult,Urine Specimen Description .CLEAN CATCH URINE Culture STAPHYLOCOCCUS SAPROPHYTICUS >100,000 CFU/ML Routine antibiotic susceptibility testing of urine isolates of Staphylococcus saprophyticus is not performed because infections respond to concentrations achieved in urine of antimicrobial agents commonly used to treat acute, uncomplicated urinary tract infections (e.g. nitrofurantoin, trimethoprim/sulfam ethoxazole, or a fluoroquinolone.) Report Status FINAL 06/19/2023 Normal [facility] Comment on above: Performed By: #### U RC #### [facility] [address], [place] [id number] Flight Instructor: Elan Elmore MD [facility] [address] [place] [address] [place] [address] Flight Instructor: Myron Sotomayor MD HCG, ,Urineon 06-17 Beta HCG ( test) Ql (U) Negative Normal NEG [facility] Comment on above: Result Comment: Spec imens with hCG levels near the threshold of the test (25 mIU/mL) may give a negative or indeterminate result. In such cases, another test should be performed with a new specimen in 48-72 hours. If early is suspected clinically in this setting, correlation with quantitative serum b-hCG level is suggested. [facility] has confirmed the use of plasma for this test. This has not been cleared or approved by the U.S. Food and Drug Administration. The FDA has determined that such clearance is not necessary. Performed By: #### U AMIShabnam [facility] #### [facility] [address] [place] [address] [place] [address] Flight Instructor: Myron Sotomayor MD Urinalysis w/ Microon 2022 Bacteria 2+ Abnormal NONE [facility] Comment on above: Performed By: #### U AMIShabnam [facility] #### [facility] [address] [place] [address] Flight Instructor: Myron Sotomayor MD Bilirubin, SemiQt,Ur Negative Normal NEG [facility] Comment on above: Performed By: #### U AMIShabnam CG #### [facility] [address] [place] [address] Flight Instructor: Myron Sotomayor MD Blood, Urine 3+ Abnormal NEG [facility] Comment on above: Performed By: #### U AMIC CG #### [facility] [address] [place], [place] [phone] Flight Instructor: Myron Sotomayor MD Clarity (U) Cloudy Abnormal CLEAR [facility] Comment on above: Performed By: #### U AMIC, UHCG #### [facility] [address] [place], [place] [phone] Flight Instructor: Myron Sotomayor MD Color (U) Red Abnormal YEL [facility] Comment on above: Performed By: #### U AMIC, UHCG #### [facility] [address] [place], [place] [phone] Flight Instructor: Myron Sotomayor MD Epithelial cells LM Ql (Urine sed) 5 TO 10 Normal 0-25 [facility] Comment on above: Performed By: #### U AMIC, UHCG #### [facility] [address] [place], [place] [phone] Flight Instructor: Myron Sotomayor MD Glucose Ql (U) Negative Normal NEG [facility] Comment on above: Performed By: #### U AMIC, UHCG #### [facility] [address] [place] [address] [place], [place] [phone] Flight Instructor: Myron Sotomayor MD Ketones Ql (U) Negative Normal NEG [facility] Comment on above: Performed By: #### U AMIC, UHCG #### [facility] [address] [place], [place] [phone] Flight Instructor: Myron Sotomayor MD Leukocyte esterase Test strip Ql (U) MODERATE Abnormal NEG [facility] Comment on above: Performed By: #### U AMIC, UHCG #### [facility] [address] [place] [address] [address] [place], [place] [phone] Flight Instructor: Myron Sotomayor MD Nitrite,Ur Negative Normal NEG [facility] Comment on above: Performed By: #### U AMIC, UHCG #### [facility] [address] [place], [place] [phone] Flight Instructor: Myron Sotomayor MD PH,Ur 7.0 Normal 5.0-9.0 [facility] Comment on above: Performed By: #### U AMIC, UHCG #### [facility] [address] [place], [place] [phone] Flight Instructor: Myron Sotomayor MD Protein Ql (U) 1+ mg/dL Abnormal NEG [facility] Comment on above: Performed By: #### U AMIC, CG #### [facility] [address] [place], [place] [phone] Flight Instructor: Myron Sotomayor MD Spec. Colona,Ur 1.015 Normal 1.010-1.020 [facility] Comment on above: Performed By: #### U AMIC, CG #### [facility] [address] [place], [place] [phone] Flight Instructor: Myron Sotomayor MD Urine RBC's 50 TO 100 Normal 0-2 [facility] Comment on above: Performed By: #### U AMIC, CG #### [address] [place], [place] [phone] Flight Instructor: Myron Sotomayor MD Urine WBC's 50 TO 100 Normal 0-5 [facility] Comment on above: Performed By: #### U AMIC, UHCG #### [facility] [address] [place], [place] [phone] Flight Instructor: Myron Sotomayor MD Urobilinogen,Ur Normal Normal 0.0-1.0 [facility] Comment on above: Performed By: #### U AMIC, UHCG #### [facility] [address] [place], [place] [phone] Flight Instructor: Myron Sotomayor MD Cult,Urineon 02-20-2023 Cult,Urine Specimen Description .CLEAN CATCH URINE Culture STAPHYLOCOCCUS SAPROPHYTICUS >922054 CFU/ML Routine antibiotic susceptibility testing of urine isolates of Staphylococcus saprophyticus is not performed because infections respond to concentrations achieved in urine of antimicrobial agents commonly used to treat acute, uncomplicated urinary tract infections (e.g. nitrofurantoin, trimethoprim/sulfam ethoxazole, or a fluoroquinolone.) Report Status FINAL 02/20/2023 Abnormal [facility] Comment on above: Performed By: #### U #### [facility] [address] [place], [place] [phone] Flight Instructor: Elan Elmore MD [facility] [address] [place] [address] [place] [address] Flight Instructor: Myron Sotomayor MD HCG, ,Urineon 02-19 Beta HCG ( test) Ql (U) Negative Normal NEG [facility] Comment on above: Result Comment: Spec imens with hCG levels near the threshold of the test (25 mIU/mL) may give a negative or indeterminate result. In such cases, another test should be performed with a new specimen in 48-72 hours. If early is suspected clinically in this setting, correlation with quantitative serum b-hCG level is suggested. [facility] has confirmed the use of plasma for this test. This has not been cleared or approved by the U.S. Food and Drug Administration. The FDA has determined that such clearance is not necessary. Performed By: #### U STANISLAV, [facility], [facility] #### [facility] [address] [place] [address] Flight Instructor: Myron Sotomayor MD Microscopic Urinalysison Epithelial cells LM.HPF (Urine sed) [#/Area] 0 TO 2 [facility] RBC LM.HPF (Urine sed) [#/Area] 100 /[HPF] [facility] WBC LM.HPF (Urine sed) [#/Area] 2 TO 5 [facility] , Urineon 3 Beta HCG ( test) Ql (U) Negative NEGATIVE [facility] Comment on above: Specimens with hCG l evels near the threshold of the test (25 mIU/mL) may give a negative or indeterminate result. In such cases, another test should be performed with a new specimen in 48-72 hours. If early is suspected clinically in this setting, correlation with quantitative serum b-hCG level is suggested. [facility] has confirmed the use of plasma for this test. This has not been cleared or approved by the U.S. Food and Drug Administration. The FDA has determined that such clearance is not necessary. [facility] UA w/Reflex Cultureon 2022 Bilirubin, SemiQt,Ur SMALL Abnormal NEG [facility] Comment on above: Performed By: #### U [place]KE [place] [facility] #### [facility] [address] [place] [address] [place] [address] Flight Instructor: Myron Sotomayor MD Blood, Urine 3+ Abnormal NEG [facility] Comment on above: Performed By: #### U GERBER [place] [facility] #### [facility] [address] [place] [address] Dr[place], [place] [phone] Flight Instructor: Myron Sotomayor MD Clarity (U) Clear Normal CLEAR [facility] Comment on above: Performed By: #### U STANISLAV [facility] #### [facility] [address] [place] [address] [place], [place] [phone] Flight Instructor: Myron Sotomayor MD Color (U) Yellow Normal YEL [facility] Comment on above: Performed By: #### U [place] [place] [facility] #### [facility] [address] [place], [place] [phone] Flight Instructor: Myron Sotomayor MD Glucose Ql (U) Negative [facility]G [facility] Comment on above: Performed By: #### U [facility] [place] [facility] #### [facility] [address] [place] [address] [place], [place] [phone] Flight Instructor: Myron Sotomayor MD Ketones Ql (U) Negative Normal NEG [facility] Comment on above: Performed By: #### U AX, UMICAO, UHCG #### [facility] [address] [place] [address] Dr[place], [place] [phone] Flight Instructor: Myron Sotomayor MD Leukocyte esterase Test strip Ql (U) SMALL Abnormal NEG [facility] Comment on above: Performed By: #### U AX, UMICAO, UHCG #### [facility] [address] [place] [address] Dr. [place], [facility] Flight Instructor: Myron Sotomayor MD Nitrite,Ur Negative Normal NEG [facility] Comment on above: Performed By: #### U AX, UMICAO, CG #### [address] [place], [place] [phone] Flight Instructor: Myron Sotomayor MD PH,Ur 7.5 Normal 5.0-9.0 [facility] Comment on above: Performed By: #### U AX, UMICAO, CG #### [facility] [address] [place] [address] Dr[address] [place], [place] [phone] Flight Instructor: Myron Sotomayor MD Protein Ql (U) 2+ Abnormal NEG [facility] in Hospital Comment on above: Performed By: #### U AX, UMICAO, UHCG #### [facility] [address] [place] [address] Dr. [place], [facility]83 Flight Instructor: Myron Sotomayor MD Spec. Colona,Ur 1.020 Normal 1.010-1.020 [facility] Comment on above: Performed By: #### U AX, UMICAO, UHCG #### [address] [place], [place] [phone] Flight Instructor: Myron Sotomayor MD Urobilinogen,Ur ELEVATED Abnormal NORM [facility] Comment on above: Performed By: #### U AX, UMICAO, UHCG #### [address] [place] [address] Flight Instructor: Myron Sotomayor MD Urinalysis with Reflex to Cu ltureon 02-19-2023 Bilirubin Ql (U) SMALL Abnormal NEGATIVE [facility] Clarity (U) Clear Clear [facility] Color (U) Yellow Yellow [facility] Glucose Test strip (U) [Mass/Vol] Negative NEGATIVE [facility] Hemoglobin Auto test strip Ql (U) 3+ Abnormal NEGATIVE [facility] Interpretation and review of laboratory results Abnormal [facility] Ketones (U) [Mass/Vol] Negative NEGATIVE [facility] Leukocyte esterase Test strip Ql (U) SMALL Abnormal NEGATIVE [facility] Nitrite Ql (U) Negative NEGATIVE [facility] pH (U) 7.5 [pH] 5.0 - 9.0 [facility] Protein (U) [Mass/Vol] 2+ Abnormal NEGATIVE [facility] Specific gravity (U) [Rel density] 1.020 1.010 - 1.020 [facility] Urobilinogen Qn (U) ELEVATED Abnormal Normal [facility] [facility] Urinalysis,Microon 3 Epithelial cells LM Ql (Urine sed) 0 TO 2 Normal 0-25 [facility] Comment on above: Performed By: #### [facility] #### [facility] [address] [place] [address] Flight Instructor: Myron Sotomayor MD Urine RBC's GREATER THAN 100 Normal 0-2 [facility] Comment on above: Performed By: #### U AXGERBER UHCG #### [facility] [address] [place] [address] Flight Instructor: Myron Sotomayor MD Urine WBC's 2 TO 5 Normal 0-5 [facility] Comment on above: Performed By: #### U GER[place] CG #### [facility] [address] [place] [address] Flight Instructor: Myron Sotomayor MD Laboratory - Chemistry and C hemistry - challengeon 01-17-2022 Hemoglobin.gastrointesti nal spec 1 Ql (Stl) 11.2 g/dL Low 11.9 - 15.1 g/dL [facility] Ketones Ql (U) Negative NEGATIVE [facility] th Albumin [Mass/Vol] 3.8 g/dL 3.5 - 5.2 g/dL [facility] Albumin/Globulin [Mass ratio] 1.4 {ratio} [facility] ALP (Bld) [Catalytic activity/Vol] 124 U/L High 35 - 104 U/L [facility] ALT [Catalytic activity/Vol] 13 U/L 5 - 33 U/L [facility] Anion gap [Moles/Vol] 13 mmol/L 9 - 17 mmol/L [facility] AST [Catalytic activity/Vol] 17 U/L <32 [facility] Bilirubin [Mass/Vol] 0.33 mg/dL 0.3 - 1 .2 mg/dL [facility] Calcium [Mass/Vol] 8.5 mg/dL Low 8.6 - 10. 4 mg/dL [facility] Chloride [Moles/Vol] 104 mmol/L 98 - 10 7 mmol/L [facility] CO2 [Moles/Vol] 22 mmol/L 20 - 31 mmol/L [facility] Creatinine [Mass/Vol] 0.88 mg/dL 0.50 - 0.90 mg/dL [facility] Free PSA/Total PSA [Mass fraction] 6.5 g/dL 6.4 - 8.3 g/dL [facility] GFR/1.73 sq M.predicted MDRD (S/P/Bld) [Vol rate/Area] [facility] Comment on above: Average GFR for <20 years old not available. Chronic Kidney Disease: <60 mL/min/1.73sq m Kidney failure: <15 mL/min/1.73sq m eGFR calculated using average adult body mass. Additional eGFR calculator available at: http://www.Shopintoit/multiple_crcl_2012.htm Stage 1: Some kidney damage normal GFR Stage 2: Mild kidney damage GFR 60-89 Stage 3: Moderate kidney damage GFR 30-59 Stage 4: Severe kidney damage GFR 15-29 Stage 5: Severe kidney damage GFR <15 ESRD - chronic treatment by dialysis or transplant Glucose [Mass/Vol] 130 mg/dL High 70 - 99 mg/dL [facility] Potassium [Moles/Vol] 3.6 mmol/L Low 3.7 - 5.3 mmol/L [facility] Sodium [Moles/Vol] 139 mmol/L 135 - 144 mmol/L [facility] Urea nitrogen (BldV) [Mass/Vol] 13 mg/dL 6 - 20 mg/dL [facility] Urea nitrogen/Creatinine (Bld) [Mass ratio] 15 [facility] Laboratory - Hematology and Cell countson 01-17-2022 Basophils (Bld) [#/Vol] 0.00 10*3/uL [facility] Basophils/100 WBC (Bld) 0 % 0 - 2 % [facility] Eosinophils/100 WBC (Bld) 0 % Low 1 - 4 % [facility] Hematocrit (Bld) [Volume fraction] 35.1 % Low 36.3 - 47.1 % [facility] Immature granulocytes/100 WBC (Bld) 0 % 0 [facility] Lymphocytes/100 WBC (Bld) 8 % Low 25 - 45 % [facility] MCH (RBC) [Entitic mass] 28.9 pg 25. 2 - 33.5 pg [facility] MCHC (RBC) [Mass/Vol] 31.9 g/dL 28.4 - 34.8 g/dL [facility] MCV (RBC) [Entitic vol] 90.7 fL 82.6 - 102.9 fL [facility] Monocytes/100 WBC (Bld) 6 % 2 - 8 % [facility] Morphology Vladimir (Bld) [Interp] Normal [facility] Platelet distribution width (Bld) [Ratio] 13.1 % 11.8 - 14.4 % [facility] Platelet mean volume (Bld) [Entitic vol] 10.9 fL 8.1 - 13.5 fL [facility] Platelets (Bld) [#/Vol] 210 10*3/uL [facility] RBC (Bld) [#/Vol] 3.87 10*6/uL Low 3.95 - 5.1 1 m/uL [facility] Segmented neutrophils/100 WBC (Bld) 86 % High 34 - 64 % [facility] WBC (Bld) [#/Vol] 7.7 10*3/uL [facility] Laboratory - Microbiology an d Antimicrobial susceptibilityon 01-17-2022 SARS-CoV-2 (COVID-19) RNA CHARBEL+probe Ql (Unsp spec) Detected Abnormal Not Detected [facility] Comment on above: Rapid NAAT: The specimen is POSITIVE for SARS-Cov-2, the novel coronavirus associated with COVID-19. This test has been authorized by the FDA under an Emergency Use Authorization (EUA) for use by authorized laboratories. The ID NOW COVID-19 assay is designed to detect the virus that causes COVID-19 in patients with signs and symptoms of infection who are suspected of COVID-19. An individual without symptoms of COVID-19 and who is not shedding SARS-CoV-2 virus would expect to have a negative (not detected) result in this assay. Fact sheet for Healthcare Providers: https://www.fda.gov/media/753422/download Fact sheet for Patients: https://www.fda.gov/media/917425/download Methodology: Isothermal Nucleic Acid Amplification Results reported to the appropriate Health Department Laboratory - Urinalysison Leukocyte esterase Test strip Ql (U) SMALL Abnormal NEGATIVE [facility] No Panel Informationon 01-17 Absolute Eos # 0.00 [facility] th Absolute Immature Granulocyte 0.00 [facility] Absolute Lymph # 0.62 Low [facility] Absolute [place] # 0.46 [place] [facility] Interpretation and review of laboratory results Abnormal [facility] NRBC Automated 0.0 0.0 per 100 WBC [facility] Segs Absolute 6.62 [facility] h [facility] Interpretation and review of laboratory results Abnormal [facility] Specimen Description .NASOPHARYNGEAL SWAB [facility] Flu A Antigen Negative NEGATIVE [facility] Comment on above: for Influenza A Anti gen Flu B Antigen Negative NEGATIVE [facility] h Comment on above: for Influenza B Anti gen. [facility] No evidence of pulmonary embolism or acute pulmonary abnormality. PN RIS CONSOLIDATED EXAMINATION: CTA OF THE CHEST 01/17/2022 7:13 pm TECHNIQUE: CTA of the chest was performed after the administration of intravenous contrast. Multiplanar reformatted images are provided for review. MIP images are provided for review. Dose modulation, iterative reconstruction, and/or weight based adjustment of the mA/kV was utilized to reduce the radiation dose to as low as reasonably achievable. COMPARISON: None. HISTORY: ORDERING SYSTEM PROVIDED HISTORY: pe, dyspnea, post vaginal delivery TECHNOLOGIST PROVIDED HISTORY: pe, dyspnea, post vaginal delivery FINDINGS: Pulmonary Arteries: Pulmonary arteries are adequately opacified for evaluation. No evidence of intraluminal filling defect to suggest pulmonary embolism. Main pulmonary artery is normal in caliber. Mediastinum: No evidence of mediastinal lymphadenopathy. The heart and pericardium demonstrate no acute abnormality. There is no acute abnormality of the thoracic aorta. Lungs/pleura: The lungs are without acute process. No focal consolidation or pulmonary edema. No evidence of pleural effusion or pneumothorax. Upper Abdomen: Limited images of the upper abdomen are unremarkable. Soft Tissues/Bones: No acute bone or soft tissue abnormality. [facility] RIS CONSOLIDATED Patric Roman MD - 01/17/2022 EXAMINATION: CTA OF THE CHEST 01/17/2022 7:13 pm TECHNIQUE: CTA of the chest was performed after the administration of intravenous contrast. Multiplanar reformatted images are provided for review. MIP images are provided for review. Dose modulation, iterative reconstruction, and/or weight based adjustment of the mA/kV was utilized to reduce the radiation dose to as low as reasonably achievable. COMPARISON: None. HISTORY: ORDERING SYSTEM PROVIDED HISTORY: pe, dyspnea, post vaginal delivery TECHNOLOGIST PROVIDED HISTORY: pe, dyspnea, post vaginal delivery FINDINGS: Pulmonary Arteries: Pulmonary arteries are adequately opacified for evaluation. No evidence of intraluminal filling defect to suggest pulmonary embolism. Main pulmonary artery is normal in caliber. Mediastinum: No evidence of mediastinal lymphadenopathy. The heart and pericardium demonstrate no acute abnormality. There is no acute abnormality of the thoracic aorta. Lungs/pleura: The lungs are without acute process. No focal consolidation or pulmonary edema. No evidence of pleural effusion or pneumothorax. Upper Abdomen: Limited images of the upper abdomen are unremarkable. Soft Tissues/Bones: No acute bone or soft tissue abnormality. IMPRESSION: No evidence of pulmonary embolism or acute pulmonary abnormality. [employer] Work Phone: - [employer] Bacteria, UA 3+ Abnormal None [facility] Epithelial Cells UA 2 TO 5 [employer] Interpretation and review of laboratory results Abnormal [facility] RBC, UA 5 TO 10 [employer] WBC, UA 20 TO 50 [facility] [facility] [employer] Bilirubin Urine Negative NEGATIVE Results Scorecard a lth Color, UA Yellow Yellow [facility] Glucose, Ur Negative NEGATIVE [facility] Interpretation and review of laboratory results Abnormal [facility] Nitrite, Urine Negative NEGATIVE [facility] th pH, UA 6.0 [facility] Protein, UA TRACE Abnormal NEGATIVE [facility] Specific [place], UA 1.025 [facility] Turbidity UA Clear Clear [facility] Urine Hgb 3+ Abnormal NEGATIVE [facility] Urobilinogen, Urine Normal Normal [facility] GFR Non- Pediatric GFR requires additional information. Refer to NKDEP website for calculator. >60 mL/min [facility] Interpretation and review of laboratory results Abnormal [facility] Lactic Acid, Sepsis 1.4 mmol/L 0.5 - 1. 9 mmol/L [facility] Radiology Study observation (narrative) [facility] Work Phone: No Panel InformationOrdered By: Patric Roman on 01-17-2022 [facility] Work Phone: CBC auto differentialon - Absolute Eos # 0.04 [facility] th Absolute Immature Granulocyte 0.05 [facility] Absolute Lymph # 1.32 [place] [facility] Absolute Pickett # 0.63 [facility] lt Basophils (Bld) [#/Vol] 10*3/uL [facility] Basophils/100 WBC (Bld) 0 % 0 - 2 % [facility] Eosinophils/100 WBC (Bld) 0 % Low 1 - 4 % [facility] Hematocrit (Bld) [Volume fraction] 39.1 % 36.3 - 47.1 % [facility] Hemoglobin.gastrointesti nal spec 1 Ql (Stl) 12.9 g/dL 11.9 - 15.1 g/dL [facility] Immature granulocytes/100 WBC (Bld) 0 % 0 [facility] Interpretation and review of laboratory results Abnormal [facility] Lymphocytes/100 WBC (Bld) 11 % Low 25 - 45 % [facility] MCH (RBC) [Entitic mass] 29.5 pg 25. 2 - 33.5 pg [facility] MCHC (RBC) [Mass/Vol] 33.0 g/dL 28.4 - 34.8 g/dL [facility] MCV (RBC) [Entitic vol] 89.5 fL 82.6 - 102.9 fL [facility] Monocytes/100 WBC (Bld) 5 % 2 - 8 % [facility] NRBC Automated 0.0 0.0 per 100 WBC [facility] Platelet distribution width (Bld) [Ratio] 12.6 % 11.8 - 14.4 % [facility] Platelet mean volume (Bld) [Entitic vol] 11.1 fL 8.1 - 13.5 fL [facility] Platelets (Bld) [#/Vol] 194 10*3/uL [facility] RBC (Bld) [#/Vol] 4.37 10*6/uL 3.95 - 5.1 1 m/uL [facility] Segmented neutrophils/100 WBC (Bld) 84 % High 34 - 64 % [facility] Segs Absolute 10.07 High [facility] WBC (Bld) [#/Vol] 12.1 10*3/uL [facility] TYPE AND SCREENon 01-11-2022 ABO/Rh Positive [facility] Arm Band Number [id number] [place] Expiration Date 01/14/2022,2359 [facility] US OB Limitedon 01-11-2022 US OB Limited FINDINGS: Comparison is made with the prior examination of November 04, 2021. Single, viable intrauterine . Adequate activity, cardiac heart rate 116 bpm. Cephalic presentation. Anterior Grade II placenta. GHULAM 14.0 cm . 5.6 cm cervical length (closed). IMPRESSION: 1. Single, viable intrauterine (cephalic presentation). 2. Closed cervix, GHULAM 14.0 cm. Report reported and signed by Rosalino King on 01/11/2022 1618 Normal [facility] [employer] GBS, External Resulton 12-16 GBS, External Result Negative [employer] Work Phone: [employer] [facility] Work Phone: Q - STREPTOCOCCUS,GROUP B CU LTUREon 12-16-2021 STREPTOCOCCUS, GROUP B CULTURE SEE NOTE Normal [facility] [employer] Comment on above: Order Comment: [facility] performed at: QPT, [employer] [facility], [address] [place] [address], [address] [place] [address], [place], [address], Community Planner: Melvin Flood MD [facility] Collection Date/Time: [facility] Results Received Date/Time: [id number] [facility] Reported Date/Time: [id number] Result Comment: STRE PTOCOCCUS, GROUP B CULTURE Micro Number: [id number] Test Status: Final Specimen Source: Not given Specimen Quality: Adequate Result: No group B Streptococcus isolated Note per CDC guidelines optimal recovery is achieved by swabbing both the lower vagina and rectum (through the anal sphincter). Performed By: #### 5 [id number] #### [facility] Default [address] [place] [address] OB Growthon 11-04-2021 OB Growth FINDINGS: Comparison made with prior examination of August 17, 2021 delivery at that time was January 13, 2022. A single, live intrauterine is present with normal cardiac rate of 129 beats per minute. Normal activity and amniotic fluid volume. Amniotic fluid index is 12.0 cm. Morphology is grossly normal. The cervix is long and closed, 4.9 cm. The placenta is anterior, Grade 1 not associated with the cervical os. The current sonographic age is 30 weeks and 1 days, based on the following measurements: BPD 7.6 cm ( 30 weeks,3 days) Head Circumference 27.6cm (30 weeks, 1 days) Abdominal Circumference 25.7cm (29 weeks, 6 days) Femur Length 5.8cm ( 30weeks, 3 days) Presentation Cephalic Placenta anterior, Grade 1 Weight by percentile 31.2% These measurements result in an estimated date of delivery of 2021. The current estimated weight is 1510 grams +/- grams ( 3 pound, 5 ounces). IMPRESSION: Single, live intrauterine , current sonographic age of 30 weeks and 1 days, with an estimated date of delivery of January 12, 2022. Report reported and signed by Rosalino King on 11/04/2021 1437 Normal [facility] [employer] Microscopic Urinalysison - [employer] Amorphous, UA NOT REPORTED None Results Scorecard a lth Bacteria, UA 3+ Abnormal None [employer] Casts UA NOT REPORTED /LPF [employer] Crystals, UA NOT REPORTED None /HPF [facility] Epithelial Cells UA 10 TO 20 Results Scorecard [facility] Interpretation and review of laboratory results Abnormal [employer] Mucus, UA 2+ Abnormal None [employer] Other Observations UA NOT REPORTED NOT REQ. M [facility] RBC, UA 0 TO 2 [facility] Renal Epithelial, UA NOT REPORTED 0 /HPF Me [facility] Trichomonas, UA NOT REPORTED None [facility] WBC, UA 5 TO 10 [facility] Yeast, UA NOT REPORTED None [facility] Urinalysison 10-31-2021 Bilirubin Urine Negative NEGATIVE [place] [facility] Color, UA Yellow Yellow [facility] Glucose, Ur Negative NEGATIVE [facility] Interpretation and review of laboratory results Abnormal [facility] Ketones Ql (U) 4+ Abnormal NEGATIVE [facility] Leukocyte esterase Test strip Ql (U) TRACE Abnormal NEGATIVE [facility] Nitrite, Urine Negative NEGATIVE [facility] pH, UA 6.5 [facility] Protein, UA TRACE Abnormal NEGATIVE [facility] Specific [place], UA 1.025 [facility] Turbidity UA Clear Clear [facility] Urinalysis Comments NOT REPORTED [facility] Urine Hgb Negative NEGATIVE [facility] Urobilinogen, Urine Normal Normal [facility] Complete Blood Counton 10-19 Erythrocyte distribution width (RBC) [Ratio] 13.1 % Normal 11.0-15.0 [facility] [employer] Comment on above: Performed By: #### G GLU, CBC #### [facility] [address] [place], [place] [id number] Hematocrit (Bld) [Volume fraction] 39.3 % Normal 35.0-47.0 [facility] [employer] Comment on above: Performed By: #### G GLU, CBC #### [facility] [address] [place], [place] [id number] Hemoglobin (Bld) [Mass/Vol] 13.3 g/dL Normal 11.6-15.5 [facility] [employer] Comment on above: Performed By: #### G GLU, CBC #### [facility] [address] [place], [place] [id number] MCH (RBC) [Entitic mass] 31.9 pg Normal 27.0-33.0 [facility] [employer] Comment on above: Performed By: #### G GLU, CBC #### [facility] [address] [place], [place] [id number] MCHC (RBC) [Mass/Vol] 33.8 g/dL Normal 32.0-36.0 [facility] [employer] Comment on above: Performed By: #### G GLU, CBC #### [facility] [address] [place], [place] [id number] MCV (RBC) [Entitic vol] 94 fL Normal 80-100 N [facility] Specialist Comment on above: Performed By: #### G GLU, CBC #### [facility] [address] [place], [place] [id number] Platelet mean volume (Bld) [Entitic vol] 10.70 fL Normal 7.50-12.50 [facility] Specialist Comment on above: Performed By: #### G GLU, CBC #### [facility] [address] [place], [place] [id number] Platelets (Bld) [#/Vol] 188 10*3/uL Normal 140-400 [facility] Specialist Comment on above: Performed By: #### G GLU, CBC #### [facility] [address] [place], [place] [id number] RBC (Bld) [#/Vol] 4.17 10*6/uL Normal 3.90-5.20 [facility] Specialist Comment on above: Performed By: #### G GLU, CBC #### [facility] [address] [place], [place] [id number] RDW-SD 45.4 fL Normal 37.0-50.0 [facility] Specialist Comment on above: Performed By: #### G GLU, CBC #### [facility] [address] [place], [place] [id number] WBC (Bld) [#/Vol] 8.9 10*3/uL Normal 3.8-11.0 [facility] [employer] Comment on above: Performed By: #### G GLU, CBC #### [facility] [address] [place], [place] [id number] Glucose - Gestational Screen on 10-19-2021 Glucose [Mass/Vol] 108 mg/dL Normal <135 [facility] [employer] Comment on above: Result Comment: A va lue of 135 mg/dL or greater indicates the need for a full glucose tolerance test performed in the fasting state to determine if the patient has gestational diabetes. Performed By: #### G GLU, CBC #### [facility] [address] [place], [place] [id number] HIV, External Resulton 06-16 HIV, External Result NR [employer] Work Phone: Hepatitis B, External Result on 06-16-2021 Hep B, External Result Negative [facility] Work Phone: No Panel Informationon 06-16 ABO, External Result O [employer] Work Phone: Rh Factor, External Result + [employer] Work Phone: [employer] Work Phone: RPR, External Labon 06-16-20 21 RPR, External Result Negative [employer] Work Phone: Rubella Titer, External Resu lton 06-16-2021 Rubella Titer, External Result 1.80 [facility] Phone: C. Trachomatis, External Res ultOrdered By: Lillie Rivera on 04-13-2021 C. Trachomatis, External Result Negative [employer] N. Gonorrhoeae, External Res ulton 04-13-2021 N. Gonorrhoeae, External Result Negative [facility] Phone: No Panel InformationOrdered By: Lillie Rivera on 04-13-2021 [employer] C Fungalon 03-26-2020 C Fungal Final No growth at 4 weeks. Normal [facility] Comment on above: Performed By: #### F C #### [address] [address] C ANAon 03-01-2020 C CAREN Final No anaerobic growth after 72 hrs. Normal [facility] Comment on above: Performed By: #### A NAC #### [address] [address] C Sterile BSon 02-29-2020 C Sterile BS Final No growth at 48 hours. Normal [facility] Comment on above: Performed By: #### S BS #### [place] [id number] C AFBon 02-28-2020 C AFB Final No growth at 8 weeks. Acid Fast Stain No Acid Fast Bacilllus seen on smear [facility] Comment on above: Performed By: #### A FB #### [address] [address] [id number] RNA PCR Send O uton 02-25-2020 [id number] RNA by PCR Not Detected Normal Not Detec johan [facility] Comment on above: Result Comment: Miss ing Attachment Chartable Reference Lab Reports Can be viewed in source system Performed By: #### C D:[id number] #### [place] [id number] , UrineOrdered By: Sharee Guzman on 09-06-2019 Beta HCG ( test) Ql (U) Negative NEGATIVE [facility] Work Phone: Comment on above: Specimens with hCG l evels near the threshold of the test (25 mIU/mL) may give a negative or indeterminate result. In such cases, another test should be performed with a new specimen in 48-72 hours. If early is suspected clinically in this setting, correlation with quantitative serum b-hCG level is suggested. [facility] has confirmed the use of plasma for this test. This has not been cleared or approved by the U.S. Food and Drug Administration. The FDA has determined that such clearance is not necessary. Vital Signs Date Time Vital Sign Value Performing Clinician Facility 03-18-2025 09:27-0400 Body mass index (BMI) [Ratio] 31.83 kg/m2 Luis Eduardo Floro CNM Work Phone: [facility] 03-18-2025 09:27-0400 Body weight 78.93 kg Luis Eduardo Earleneo CNM Work Phone: [facility] 03-18-2025 09:27-0400 Diastolic blood pressure 80 mm[Hg] Luis Eduardo Floro CNM Work Phone: [facility] 03-18-2025 09:27-0400 Systolic blood pressure 118 mm[Hg] Luis Eduardo Floro CNM Work Phone: [facility] 03-12-2025 09:33-0400 Body mass index (BMI) [Ratio] 32.37 kg/m2 Luis Eduardo Floro CNM Work Phone: [facility] 03-12-2025 09:33-0400 Body weight 80.29 kg Luis Eduardo Floro CNM Work Phone: [facility] 03-12-2025 09:33-0400 Diastolic blood pressure 60 mm[Hg] Luis Eduardo Floro CNM Work Phone: [facility] 03-12-2025 09:33-0400 Systolic blood pressure 110 mm[Hg] Luis Eduardo Floro CNM Work Phone: [facility] 03-05-2025 13:50-0400 Body mass index (BMI) [Ratio] 32.56 kg/m2 Luis Eduardo Floro CNM Work Phone: [facility] 03-05-2025 13:50-0400 Body weight 80.74 kg Luis Eduardo Floro CNM Work Phone: [facility] 03-05-2025 13:50-0400 Diastolic blood pressure 62 mm[Hg] Luis Eduardo Floro CNM Work Phone: [facility] 03-05-2025 13:50-0400 Systolic blood pressure 120 mm[Hg] Luis Eduardo Floro CNM Work Phone: [facility] 02-26-2025 10:18-0400 Body mass index (BMI) [Ratio] 32.01 kg/m2 Luis Eduardo Floro CNM Work Phone: [facility] 02-26-2025 10:18-0400 Body weight 79.38 kg Luis Eduardo Floro CNM Work Phone: [facility] 02-26-2025 10:18-0400 Diastolic blood pressure 70 mm[Hg] Luis Eduardo Floro CNM Work Phone: [facility] 02-26-2025 10:18-0400 Systolic blood pressure 110 mm[Hg] Luis Eduardo Floro CNM Work Phone: [facility] [facility] 02-19-2025 09:34-0400 Body mass index (BMI) [Ratio] 31.64 kg/m2 Luis Eduardo Floro CNM Work Phone: [facility] 02-19-2025 09:34-0400 Body weight 78.47 kg Luis Eduardo Floro CNM Work Phone: [facility] 02-19-2025 09:34-0400 Diastolic blood pressure 62 mm[Hg] Luis Eduardo Floro CNM Work Phone: [facility] 02-19-2025 09:34-0400 Systolic blood pressure 118 mm[Hg] Luis Eduardo Floro CNM Work Phone: [facility] 02-12-2025 09:28-0400 Body mass index (BMI) [Ratio] 31.46 kg/m2 Luis Eduardo Floro CNM Work Phone: [facility] 02-12-2025 09:28-0400 Body weight 78.02 kg Luis Eduardo Floro CNM Work Phone: [facility] 02-12-2025 09:28-0400 Diastolic blood pressure 70 mm[Hg] Luis Eduardo Floro CNM Work Phone: [facility] 02-12-2025 09:28-0400 Systolic blood pressure 110 mm[Hg] Luis Eduardo Floro CNM Work Phone: [facility] 01-29-2025 09:10-0400 Body mass index (BMI) [Ratio] 32.01 kg/m2 Luis Eduardo Floro CNM Work Phone: [facility] 01-29-2025 09:10-0400 Body weight 79.38 kg Luis Eduardo Floro CNM Work Phone: [facility] 01-29-2025 09:10-0400 Diastolic blood pressure 72 mm[Hg] Luis Eduardo Floro CNM Work Phone: [facility] 01-29-2025 09:10-0400 Systolic blood pressure 118 mm[Hg] Luis Eduardo Floro CNM Work Phone: [facility] 01-20-2025 09:12-0400 Body height 157.5 cm Hope Coppola MD Work Phone: [facility] 01-20-2025 09:12-0400 Body mass index (BMI) [Ratio] 30.91 kg/m2 Hope Coppola MD Work Phone: [facility] 01-20-2025 09:12-0400 Body weight 76.66 kg Hope Coppola MD Work Phone: [facility] 01-20-2025 09:12-0400 Diastolic blood pressure 72 mm[Hg] Hope Coppola MD Work Phone: [facility] 01-20-2025 09:12-0400 Heart rate 97 /min Hope Coppola MD Work Phone: [facility] 01-20-2025 09:12-0400 SaO2% (BldA) [Mass fraction] 98 % Hope Coppola MD Work Phone: [facility] 01-20-2025 09:12-0400 Systolic blood pressure 114 mm[Hg] Hope Coppola MD Work Phone: [facility] 01-15-2025 09:53-0400 Body mass index (BMI) [Ratio] 30.36 kg/m2 Luis Eduardo Euceda CNM Work Phone: [facility] 01-15-2025 09:53-0400 Body weight 75.3 kg Luis Eduardo Euceda CNM Work Phone: [facility] 01-15-2025 09:53-0400 Diastolic blood pressure 78 mm[Hg] Luis Eduardo Euceda CNM Work Phone: [facility] 01-15-2025 09:53-0400 Systolic blood pressure 118 mm[Hg] Luis Eduardo Euceda CNM Work Phone: [facility] 12-27-2024 13:11-0400 Body height 157.5 cm Tiara Castro MD Work Phone: [facility] 12-27-2024 13:11-0400 Body mass index (BMI) [Ratio] 28.35 kg/m2 Tiara Castro MD Work Phone: [facility] 12-27-2024 13:11-0400 Body weight 70.31 kg Tiara Castro MD Work Phone: [facility] 12-27-2024 13:11-0400 Diastolic blood pressure 59 mm[Hg] Tiara Castro MD Work Phone: [facility] 12-27-2024 13:11-0400 Heart rate 82 /min Tiara Castro MD Work Phone: [facility] 12-27-2024 13:11-0400 Systolic blood pressure 117 mm[Hg] Tiara Castro MD Work Phone: [facility] 12-17-2024 09:33-0400 Body mass index (BMI) [Ratio] 29.26 kg/m2 Luis Eduardo Floro CNM Work Phone: [facility] 12-17-2024 09:33-0400 Body weight 72.58 kg Luis Eduardo Floro CNM Work Phone: [facility] 12-17-2024 09:33-0400 Diastolic blood pressure 60 mm[Hg] Luis Eduardo Floro CNM Work Phone: [facility] 12-17-2024 09:33-0400 Systolic blood pressure 110 mm[Hg] Luis Eduardo Floro CNM Work Phone: [facility] 11-19-2024 09:23-0500 Diastolic blood pressure 70 mm[Hg] Luis Eduardo Floro CNM Work Phone: [facility] 11-19-2024 09:23-0500 Systolic blood pressure 120 mm[Hg] Luis Eduardo Floro CNM Work Phone: [facility] 10-29-2024 15:36-0500 Body mass index (BMI) [Ratio] 27.25 kg/m2 Luis Eduardo Floro CNM Work Phone: [facility] 10-29-2024 15:36-0500 Body weight 67.59 kg Luis Eduardo Floro CNM Work Phone: [facility] 10-29-2024 15:36-0500 Diastolic blood pressure 80 mm[Hg] Luis Eduardo Floro CNM Work Phone: [facility] 10-29-2024 15:36-0500 Systolic blood pressure 120 mm[Hg] Luis Eduardo Floro CNM Work Phone: [facility] 10-01-2024 16:06-0500 Body mass index (BMI) [Ratio] 27.44 kg/m2 Luis Eduardo SANTOSM Work Phone: [facility] 10-01-2024 16:06-0500 Body weight 68.04 kg Luis Eduardo SANTOSM Work Phone: [facility] 10-01-2024 16:06-0500 Diastolic blood pressure 80 mm[Hg] Luis Eduardo Euceda CNM Work Phone: [facility] 10-01-2024 16:06-0500 Systolic blood pressure 120 mm[Hg] Luis Eduardo Euceda CNM Work Phone: [facility] 09-02-2024 16:04-0500 Body mass index (BMI) [Ratio] 27.25 kg/m2 Luis Eduardo Euceda CNM Work Phone: [facility] 09-02-2024 16:04-0500 Body weight 67.59 kg Luis Eduardo SANTOSM Work Phone: [facility] 08-12-2024 13:27-0500 Body mass index (BMI) [Ratio] 27.25 kg/m2 Luis Eduardo Euceda CNM Work Phone: [facility] 08-12-2024 13:27-0500 Body weight 67.59 kg Luis Eduardo SANTOSM Work Phone: [facility] 02-19-2023 04:47-0400 Diastolic blood pressure 72 mm[Hg] Cassius Hoskins MD Work Phone: [facility] [employer] 02-19-2023 04:47-0400 Heart rate 54 /min Cassius Hoskins MD Work Phone: [employer] 02-19-2023 04:47-0400 Respiratory rate 16 /min Cassius Hoskins MD Work Phone: [facility] [employer] 02-19-2023 04:47-0400 SaO2% (BldA) [Mass fraction] 100 % Cassius Hoskins MD Work Phone: [facility] [employer] 02-19-2023 04:47-0400 Systolic blood pressure 113 mm[Hg] Cassius Hoskins MD Work Phone: [facility] [employer] 02-19-2023 00:21-0400 Body height 157.5 cm Cassius Hoskins MD Work Phone: [facility] [employer] 02-19-2023 00:21-0400 Body mass index (BMI) [Ratio] 23.96 kg/m2 Cassius Hoskins MD Work Phone: [facility] [employer] 02-19-2023 00:21-0400 Body temperature 98.2 [degF] Cassius Hoskins MD Work Phone: [facility] [employer] 02-19-2023 00:21-0400 Body weight 59.42 kg Cassius Hoskins MD Work Phone: [facility] [employer] 01-17-2022 20:27-0400 Heart rate 90 /min Mikiabhishek Penaloza Work Phone: [employer] 01-17-2022 20:27-0400 Respiratory rate 19 /min Mikiabhishek Penaloza Work Phone: [employer] 01-17-2022 20:27-0400 SaO2% (BldA) [Mass fraction] 100 % Mikiabhishek Penaloza Work Phone: [employer] 01-17-2022 20:12-0400 Diastolic blood pressure 70 mm[Hg] Mikiabhishek Penaloza Work Phone: [employer] 01-17-2022 20:12-0400 Systolic blood pressure 119 mm[Hg] Miki Ca Work Phone: [employer] 01-17-2022 18:56-0400 Body mass index (BMI) [Percentile] Per age and sex 95.25 % Miki Ca Work Phone: [employer] 01-17-2022 18:56-0400 Body mass index (BMI) [Ratio] 32.01 kg/m2 Miki Penaloza Work Phone: [employer] 01-17-2022 18:56-0400 Body weight 79.38 kg Miki Penaloza Work Phone: [employer] 01-17-2022 18:19-0400 Body temperature 101.19 [degF] Miki Penaloza Work Phone: [employer] 01-13-2022 07:54-0400 Body temperature 98.4 [degF] Luis Eduardo Euceda APRN - CNM Work Phone: [employer] 01-13-2022 07:54-0400 Diastolic blood pressure 65 mm[Hg] Luis Eduardo Euceda APRN - CNM Work Phone: [employer] 01-13-2022 07:54-0400 Heart rate 82 /min Luis Eduardo Euceda APRN - CNM Work Phone: [employer] 01-13-2022 07:54-0400 Respiratory rate 16 /min Luis Eduardo Euceda APRN - CNM Work Phone: [employer] 01-13-2022 07:54-0400 Systolic blood pressure 110 mm[Hg] Luis Eduardo Euceda APRN - CNM Work Phone: [employer] 01-12-2022 04:40-0400 SaO2% (BldA) [Mass fraction] 99 % Luis Eduardo Euceda APRN - CNM Work Phone: [employer] 01-11-2022 18:11-0400 Body height 157.5 cm Luis Eduardo Euceda APRN - CNM Work Phone: [employer] 01-11-2022 18:11-0400 Body mass index (BMI) [Percentile] Per age and sex 95.11 % Luis Eduardo Euceda APRN - CNM Work Phone: [employer] 01-11-2022 18:11-0400 Body mass index (BMI) [Ratio] 31.83 kg/m2 Luis Eduardo Euceda APRN - CNM Work Phone: [employer] 01-11-2022 18:11-0400 Body weight 78.93 kg Luis Eduardo Euceda [employer]ORAGE AND BACKUP ADMINISTRATOR - CNM Work Phone: [employer] 10-31-2021 13:43-0500 Body temperature 98.1 [degF] Luis Eduardo Euceda STORAGE AND BACKUP ADMINISTRATOR - CNM Work Phone: [employer] 10-31-2021 13:43-0500 Diastolic blood pressure 63 mm[Hg] Luis Eduardo Euceda STORAGE AND BACKUP ADMINISTRATOR - CNM Work Phone: [employer] 10-31-2021 13:43-0500 Heart rate 118 /min Luis Eduardo Euceda STORAGE AND BACKUP ADMINISTRATOR - CNM Work Phone: [employer] 10-31-2021 13:43-0500 Respiratory rate 16 /min Luis Eduardo Euceda STORAGE AND BACKUP ADMINISTRATOR - CNM Work Phone: [employer] 10-31-2021 13:43-0500 Systolic blood pressure 111 mm[Hg] Luis Eduardo Euceda STORAGE AND BACKUP ADMINISTRATOR - CNM Work Phone: [employer] 09-06-2019 18:00-0500 Diastolic blood pressure 54 mm[Hg] Sharee Guzman MD Work Phone: [employer] Work Phone: 09-06-2019 18:00-0500 Heart rate 60 /min Sharee Guzman MD Work Phone: [employer] Work Phone: 09-06-2019 18:00-0500 Respiratory rate 16 /min Sharee Guzman MD Work Phone: [employer] Work Phone: 09-06-2019 18:00-0500 SaO2% (BldA) [Mass fraction] 100 % Sharee Guzman MD Work Phone: [employer] Work Phone: 09-06-2019 18:00-0500 Systolic blood pressure 103 mm[Hg] Sharee Guzman MD Work Phone: [employer] Work Phone: 09-06-2019 16:54-0500 Body temperature 97.7 [degF] Sharee Guzman MD Work Phone: [employer] Work Phone: 09-06-2019 13:08-0500 Body height 160 cm Sharee Guzman MD Work Phone: [employer] Work Phone: 09-06-2019 13:08-0500 Body mass index (BMI) [Ratio] 24.8 kg/m2 Sharee Guzman MD Work Phone: [employer] Work Phone: 09-06-2019 13:08-0500 Body weight 63.5 kg Sharee Guzman MD Work Phone: [employer] Work Phone: Encounters Encounter Date Encounter Type Care Provider Facility Start: 03-18-2025 End: 03-18-2025 Bamboo flowsheet Luis Eduardo L Floro CNM Work Phone: [facility] Start: 03-18-2025 End: 03-18-2025 Bamboo flowsheet Luis Eduardo L Floro CNM Work Phone: [facility] Start: 03-18-2025 End: 03-18-2025 Subsequent care visit Luis Eduardo L Floro CNM Work Phone: [facility] Comment on above: Encounter for superv ision of other normal , third trimester ([facility]) (Primary Dx); History of cardiac murmur Start: 03-18-2025 End: 03-18-2025 ambulatory LUIS EDUARDO L FLORO Not Available Start: 03-12-2025 End: 03-12-2025 Bamboo flowsheet Luis Eduardo L Floro CNM Work Phone: [facility] Start: 03-12-2025 End: 03-12-2025 Bamboo flowsheet Luis Eduardo L Floro CNM Work Phone: [facility] Start: 03-12-2025 End: 03-12-2025 Subsequent care visit Luis Eduardo L Floro CNM Work Phone: [facility] Comment on above: Encounter for superv ision of other normal , third trimester ([facility]) (Primary Dx) Start: 03-12-2025 End: 03-12-2025 ambulatory LUIS EDUARDO L FLORO Not Available Start: 03-05-2025 End: 03-05-2025 Bamboo flowsheet Luis Eduardo L Floro CNM Work Phone: [facility] Start: 03-05-2025 End: 03-05-2025 Bamboo flowsheet Luis Eduardo L Floro CNM Work Phone: [facility] Start: 03-05-2025 End: 03-05-2025 Subsequent care visit Luis Eduardo L Floro CNM Work Phone: [facility] Comment on above: Encounter for superv ision of other normal , third trimester ([facility]) (Primary Dx) Start: 03-05-2025 End: 03-05-2025 ambulatory LUIS EDUARDO L FLORO Not Available Start: 02-26-2025 End: 02-26-2025 Subsequent care visit Luis Eduardo L Floro CNM Work Phone: [facility] Comment on above: Encounter for superv ision of other normal , third trimester (Primary Dx) Start: 02-26-2025 End: 02-26-2025 ambulatory LUIS EDUARDO L FLORO Not Available Start: 02-19-2025 End: 02-19-2025 Bamboo flowsheet Luis Eduardo L Floro CNM Work Phone: [facility] Start: 02-19-2025 End: 02-19-2025 Bamboo flowsheet Luis Eduardo L Floro CNM Work Phone: [facility] Start: 02-19-2025 End: 02-19-2025 ambulatory LUIS EDUARDO L FLORO Not Available Start: 02-19-2025 End: 02-19-2025 Subsequent care visit Luis Eduardo Euceda CNM Work Phone: [facility] Comment on above: Encounter for superv ision of other normal , third trimester (Primary Dx); screening for streptococcus B Start: 02-12-2025 End: 02-12-2025 Bamboo flowsheet Luis Eduardo Hernandezo CNM Work Phone: [facility] Start: 02-12-2025 End: 02-12-2025 Bamboo flowsheet Luis Eduardo Hernandezo CNM Work Phone: [facility] Start: 02-12-2025 End: 02-12-2025 Office outpatient visit 15 minutes Luis Eduardo Hernandezo CNM Work Phone: [facility] Comment on above: Encounter for superv ision of other normal , third trimester (Primary Dx); History of cardiac murmur Start: 02-12-2025 End: 02-12-2025 ambulatory LUIS EDUARDO L FLORO Not Available Start: 02-07-2025 End: 02-07-2025 ambulatory [facility] Start: 01-29-2025 End: 01-29-2025 Bamboo flowsheet Luis Eduardo Hernandezo CNM Work Phone: [facility] Start: 01-29-2025 End: 01-29-2025 Bamboo flowsheet Luis Edurado Hernandezo CNM Work Phone: [facility] Start: 01-29-2025 End: 01-29-2025 Subsequent care visit Luis Eduardo Hernandezo CNM Work Phone: [facility] Comment on above: Encounter for superv ision of other normal , third trimester (Primary Dx) Start: 01-29-2025 End: 01-29-2025 ambulatory LUIS EDUARDO L FLORO Not Available Start: 01-28-2025 End: 01-28-2025 ambulatory [facility] Start: 01-20-2025 End: 01-20-2025 Office outpatient new 45 minutes Long Lucas MD Work Phone: [facility] Comment on above: Palpitations (Primar y Dx) Start: 01-20-2025 End: 03-05-2025 ambulatory [facility] Start: 01-15-2025 End: 01-15-2025 Bamboo flowsheet Luis Eduardo Nimco Hernandezo CNM Work Phone: [facility] Start: 01-15-2025 End: 01-15-2025 Bamboo flowsheet Luis Eduardo Hernandezo CNM Work Phone: [facility] Start: 01-15-2025 End: 01-15-2025 Subsequent care visit Luis Eduardo Hernandezo CNM Work Phone: [facility] Comment on above: Encounter for superv ision of other normal , third trimester (Primary Dx) Start: 01-15-2025 End: 01-15-2025 ambulatory LUIS EDUARDO Nimco HERNANDEZO Not Available Start: 01-02-2025 End: 01-02-2025 Chart abstracting Scanning Provider External [facility] Start: 12-30-2024 End: 12-30-2024 Orders Only Adwoa Suggs RN [facility] Comment on above: Suspected problem wi th growth not found (Primary Dx) Start: 12-27-2024 End: 12-27-2024 Office consultation new/estab patient 40 min Tiara Castro MD Work Phone: [facility] Comment on above: Suspected problem wi th growth not found (Primary Dx); 28 weeks gestation of Start: 12-27-2024 End: 12-27-2024 [facility] Start: 12-26-2024 End: 12-27-2024 Chart abstracting Tiara Castro MD Work Phone: [facility] Start: 12-23-2024 End: 12-23-2024 ambulatory LUIS EDUARDO L FLORO Not Available Start: 12-17-2024 End: 12-17-2024 Bamboo flowsheet Luis Eduardo Nimco Hernandezo CNM Work Phone: [facility] Start: 12-17-2024 End: 12-17-2024 Bamboo flowsheet Luis Eduardo Nimco Hernandezo CNM Work Phone: [facility] Start: 12-17-2024 End: 12-17-2024 Subsequent care visit Luis Eduardo Hernandezo CNM Work Phone: [facility] Comment on above: Encounter for superv ision of other normal , second trimester (Primary Dx); related condition in third trimester; Screening for diabetes mellitus (DM); Screening for iron deficiency anemia Start: 12-17-2024 End: 12-17-2024 ambulatory LUIS EDUARDO L FLORO Not Available Start: 12-09-2024 End: 12-09-2024 Telephone encounter Amanda Mann [facility] Start: 12-02-2024 End: 12-02-2024 Telephone encounter Amanda Mann [facility] Start: 11-25-2024 End: 11-25-2024 Telephone encounter Amanda Mann [facility] Start: 11-19-2024 End: 11-19-2024 Bamboo flowsheet Luis Eduardo Nimco Hernandezo CNM Work Phone: [facility] Start: 11-19-2024 End: 11-19-2024 Bamboo flowsheet Luis Eduardo Nimco Hernandezo CNM Work Phone: [facility] Start: 11-19-2024 End: 11-19-2024 Subsequent care visit Luis Eduardo Hernandezo CNM Work Phone: [facility] Comment on above: Palpitation (Primary Dx); History of cardiac murmur Start: 11-19-2024 End: 11-19-2024 ambulatory LUIS EDUARDO L FLORO Not Available Start: 11-01-2024 End: 11-01-2024 Clinisync Result Encounter Luis Eduardo SANTOSM Work Phone: [facility] Unsolicited Start: 11-01-2024 End: 11-01-2024 Clinisync Result Encounter Luis Eduardo Euceda CNM Work Phone: [facility] Unsolicited Start: 10-29-2024 End: 10-29-2024 Subsequent care visit Luis Eduardo Euceda CNM Work Phone: [facility] Comment on above: Encounter for superv ision of other normal , second trimester (Primary Dx) Start: 10-29-2024 End: 10-29-2024 ambulatory LUIS EDUARDO Nimco HERNANDEZO Not Available Start: 10-29-2024 End: 10-29-2024 Bamboo flowsheet Luis Eduardo Euceda CNM Work Phone: [facility] Start: 10-29-2024 End: 10-29-2024 Bamboo flowsheet Luis Eduardo Euceda CNM Work Phone: [facility] Start: 10-01-2024 End: 10-01-2024 Subsequent care visit Luis Eduardo Euceda CNM Work Phone: [facility] Comment on above: Encounter for superv ision of other normal , second trimester (Primary Dx); Amenorrhea; examination or test, positive result; related condition in second trimester Start: 10-01-2024 End: 10-01-2024 ambulatory LUIS EDUARDO Nimco FLORO Not Available Start: 10-01-2024 End: 10-01-2024 Bamboo flowsheet Luis Eduardo Euceda CNM Work Phone: [facility] Start: 10-01-2024 End: 10-01-2024 Bamboo flowsheet Luis Eduardo Hernandezo CNM Work Phone: [facility] Start: 09-02-2024 End: 09-02-2024 Subsequent care visit Luis Eduardo Euceda CNM Work Phone: [facility] Comment on above: Encounter for superv ision of other normal , first trimester (Primary Dx) Start: 09-02-2024 End: 09-02-2024 ambulatory LUIS EDUARDO L FLORO Not Available Start: 09-02-2024 End: 09-02-2024 Bamboo flowsheet Luis Eduardo L Floro CNM Work Phone: [facility] Start: 09-02-2024 End: 09-02-2024 Bamboo flowsheet Luis Eduardo L Floro CNM Work Phone: [facility] Start: 08-12-2024 End: 08-12-2024 Bamboo flowsheet Luis Eduardo L Floro CNM Work Phone: [facility] Start: 08-12-2024 End: 08-12-2024 Bamboo flowsheet Luis Eduardo L Floro CNM Work Phone: [facility] Start: 08-12-2024 End: 08-12-2024 Subsequent care visit Luis Eduardo L Floro CNM Work Phone: [facility] Comment on above: GA: 8w5d Start: 08-12-2024 End: 08-12-2024 ambulatory LUIS EDUARDO L FLORO Not Available Start: 05-17-2024 End: 05-17-2024 Patient encounter procedure [facility] Comment on above: H/O urinary tract in fection (Primary Dx) Start: 05-17-2024 End: 05-17-2024 ambulatory LUIS EDUARDO FLORO Not Available Start: 05-06-2024 End: 05-06-2024 ambulatory LILLIE KAMPFER Not Available Start: 04-24-2024 End: 04-24-2024 ambulatory LUIS EDUARDO FLORO Not Available Start: 04-22-2024 End: 04-22-2024 ambulatory LUIS EDUARDO FLORO Not Available Start: 04-12-2024 End: 04-12-2024 ambulatory LILLIE KAMPFER Not Available Start: 04-10-2024 End: 04-10-2024 ambulatory LUIS EDUARDO FLORO Not Available Start: 06-17-2023 End: 06-17-2023 Emergency department patient visit AUDREY GIANNA [facility] Start: 02-19-2023 End: 02-19-2023 Emergency department patient visit [facility] Start: 02-19-2023 End: 02-19-2023 Emergency department patient visit Cassius Hoskins MD Work Phone: [facility] Comment on above: Acute cystitis with hematuria (Primary Dx) Start: 01-17-2022 End: 01-17-2022 Emergency department patient visit Miki Penaloza Work Phone: [facility] Comment on above: COVID-19 (Primary Dx ); Acute UTI Start: 01-11-2022 End: 01-13-2022 Evaluation and management of inpatient Luis Eduardo Euceda APRN - [place] Work Phone: [email or web address] Start: 10-31-2021 End: 10-31-2021 Subsequent hospital visit by physician Luis Eduardo Gil CNM Work Phone: [facility] Start: 02-24-2020 End: 02-25-2020 Patient encounter procedure SHAREE GUZMAN Facility:[facility] Start: 09-06-2019 End: 09-06-2019 Subsequent hospital visit by physician Sharee Guzman MD Work Phone: [facility] Comment on above: New ACL tear, right, initial encounter (Primary Dx) Start: 01-23-2018 End: 01-23-2018 Ambulatory LUIS FERNANDO MARKER Facility: Procedures Date Procedure Procedure Detail Performing Clinician Start: 01-20-2025 Ecg routine ecg w/le ast 12 lds w/i&r Hope Coppola MD Work Phone: Start: 11-01-2024 US OB ANATOMY Luis Eduardo Euceda CNM Work Phone: Start: 11-01-2024 US OB CERVICAL LENGTH V lesly Euceda CNM Work Phone: Start: 09-02-2024 End: 09-02-2024 Culture bacterial quanttative colony count urine Luis Eduardo Euceda CNM Work Phone: Start: 09-02-2024 DRUG TOX MONITORIGN 6 W/ CONF,URINE Luis Eduardo SANTOS Work Phone: Start: 09-02-2024 URINALYSIS MICROSCOPIC Luis Eduardo SANTOS Work Phone: Start: 09-02-2024 End: 09-02-2024 Antibody screen rbc each serum technique Luis Eduardo Euceda [facility] Work Phone: Start: 09-02-2024 End: 09-02-2024 Hemoglobin glycosylated a1c Luis Eduardo SANTOS Work Phone: Start: 09-02-2024 TSH W/REFLEX TO FT4 Rosana Euceda [facility] Work Phone: Start: 09-02-2024 TYPE AND SCREEN Not In System Ref Prov Start: 09-02-2024 CHLAMYDIA/GC BY PCR THINPREP FLUID Not In System Ref Prov Start: 09-02-2024 CHLAMYDIA/GC BY PCR URINE Not In System Ref Prov Start: 09-02-2024 Drug scrn 1+ class nonchromo Not In System Ref Prov Start: 09-02-2024 HIV 1&2 AB/AG SCREEN (P24 AG) Not In System Ref Prov Start: 08-12-2024 Urine test visual color cmprsn meths Luis Eduardo Euceda [facility] Work Phone: Start: 05-17-2024 Urnls dip stick/tabl et rgnt non-auto w/o micrscp Lillie Barry [employer] Work Phone: Start: 02-19-2023 Urinalysis microscop ic only Cassius Hoskins MD Work Phone: Start: 02-19-2023 Urine test visual color cmprsn meths Cassius Hoskins MD Work Phone: Start: 01-17-2022 COVID-19, RAPID Patric Barr PA-C Work Phone: Start: 01-17-2022 End: 01-17-2022 Iaadiadoo influenza [facility] Work Phone: Start: 01-17-2022 Ct thorax w/contrast material [facility] Work Phone: Start: 01-17-2022 Urnls dip stick/tabl et rgnt auto w/o microscopy [facility] Work Phone: Start: 01-17-2022 Blood count complete auto&auto difrntl wbc [facility] Work Phone: Start: 01-17-2022 LACTATE, SEPSIS [facility] Work Phone: Start: 01-11-2022 Antibody screen Luis Eduardo Euceda APRN - [facility] Work Phone: Start: 01-11-2022 Blood count complete auto&auto difrntl wbc Luis Eduardo Euceda APRN - [facility] Work Phone: Start: 01-11-2022 Blood typing serologic abo Luis Eduardo Euceda APRN - [facility] Work Phone: Start: 12-16-2021 GBS, EXTERNAL RESULT Ut [facility]aydenical Provider Start: 10-31-2021 Urinalysis microscop ic only Luis Eduardo Euceda APRN - [facility] [facility] Work Phone: Start: 10-31-2021 Urnls dip stick/tabl et rgnt auto w/o microscopy Luis Eduardo Euceda APRN - [facility] Work Phone: Start: 06-16-2021 HIV, EXTERNAL RESULT Hi storical Provider Start: 06-16-2021 RPR, EXTERNAL RESULT Hi storical Provider Start: 06-16-2021 End: 06-16-2021 ABO, EXTERNAL RESULT Historical Provider Start: 06-16-2021 HEPATITIS B, EXTERNA L RESULT Historical Provider Start: 06-16-2021 End: 06-16-2021 RH FACTOR, EXTERNAL RESULT Historical Pr felicia CONNOR Start: 06-16-2021 RUBELLA TITER, EXTER NAL RESULT Historical Provider Start: 04-13-2021 C. TRACHOMATIS, EXTE RNAL RESULT Historical Provider Start: 04-13-2021 N. GONORRHOEAE, EXTE RNAL RESULT Historical Provider Start: 09-06-2019 Urine test visual color cmprsn meths Sharee Guzman MD Work Phone: Plan of Treatment Date Care Activity Detail Author Start: 03-10-2033 DTaP,Tdap and Td Vaccines (10 - Td or Tdap) DTaP,Tdap and Td Vaccines (10 - Td or Tdap) [facility] Start: 10-19-2031 DTaP/Tdap/Td vaccine (8 - Td or Tdap) DTaP/Tdap/Td vaccine (8 - Td or Tdap) [facility] Start: 01-20-2026 Adult BMI Screening Adult BMI Screen ing [facility] Start: 01-20-2026 Tobacco Screening Tobacco Screening [facility] Start: 12-30-2025 End: 12-30-2025 US MFM with or without consult US MFM with or without consult Imaging Routine Suspected problem with growth not found Expected: 12/30/2025 (Approximate), Expires: 12/30/[facility] Work Phone: Comment on above: Expected: 12/30/2025 (Approximate), Expires: 12/30/2025 Start: 12-27-2025 Adult BMI Screening Adult BMI Screen ing [facility] Start: 12-27-2025 Tobacco Screening Tobacco Screening [facility] Start: 05-19-2025 Influenza vaccination [facility] Start: 04-02-2025 End: 04-02-2025 Telemedicine consultation with patient 04/02/2025 11:30 AM EDT Telemedicine [facility] [address] [place] [address] Luis Eduardo Euceda, [place] [address] [place] [address] [facility] Start: 03-18-2025 End: 03-18-2025 Patient encounter procedure [facility] Comment on above: Arrived Start: 03-12-2025 End: 03-12-2025 Patient encounter procedure [facility] Comment on above: Arrived Start: 03-05-2025 End: 03-05-2025 Patient encounter procedure [facility] Comment on above: Arrived Start: 02-26-2025 End: 02-26-2025 Patient encounter procedure 02/26/2025 10:30 AM EDT Routine [facility] [address] [facility] [place] [phone] Luis Eduardo Euceda, [facility] [address] [place] [address] [facility] Start: 02-19-2025 End: 02-19-2026 STREPTOCCOUS, GROUP B CULTURE STREPTOCCOUS, GROUP B CULTURE Lab Routine screening for streptococcus B Expected: 02/19/2025 (Approximate), Expires: 02/19/2026 [facility] Work Phone: Comment on above: Expected: 02/19/2025 (Approximate), Expires: 02/19/2026 Start: 02-19-2025 End: 02-19-2025 Patient encounter procedure 02/19/2025 9:30 AM EDT Routine [facility] [address] [place] [phone] Luis Eduardo Euceda, [facility] [address] [place] [address] [facility] Start: 02-12-2025 End: 02-12-2025 Patient encounter procedure [facility] Comment on above: Arrived Start: 01-29-2025 End: 01-29-2025 Patient encounter procedure [facility] Comment on above: Arrived Start: 01-28-2025 End: 01-28-2025 Patient encounter procedure 01/28/2025 2:00 PM EDT Appointment [facility] [address] [place] [phone] [facility] Start: 01-20-2025 End: 01-20-2026 Echo complete W/O contrast Echo complete W/O contrast Echocardiography Routine Palpitations Expected: 01/20/2025, Expires: 01/20/2026 [facility] Work Phone: Comment on above: Expected: 01/20/2025 , Expires: 01/20/2026 Start: 01-20-2025 End: 01-20-2026 Event Monitor (In Office) Event Monitor (In Office) Cardiac Services Routine Palpitations Expected: 01/20/2025, Expires: 01/20/2026 [facility] Comment on above: Expected: 01/20/2025 , Expires: 01/20/2026 Start: 01-20-2025 End: 01-20-2025 Patient encounter procedure 01/20/2025 9:30 AM EDT Office Visit [facility] [address] [place] [phone] Long Lucas MD [address] [place] [phone] Hope Coppola MD [address] [place] [address] [facility] Start: 01-15-2025 End: 01-15-2025 Patient encounter procedure 01/15/2025 10:00 AM EDT Routine [facility] [address] [place] [phone] Luis Eduardo Euceda CNM [address] [place] [address] Arrived [facility] Comment on above: Arrived Start: 01-14-2025 End: 01-14-2025 Patient encounter procedure 01/14/2025 10:00 AM EDT Routine [facility] [address] [place] [phone] Luis Eduardo Euceda CNM [address] [place] [address] [facility] Start: 12-27-2024 End: 12-27-2024 Patient encounter procedure [facility] Start: 12-23-2024 End: 12-23-2024 Professional / ancillary services management 12/23/2024 9:00 AM EDT Ancillary Procedure [facility] [address] [place] [address] [facility] Start: 12-17-2024 End: 12-17-2025 CBC panel - Blood by Automated count CBC Lab Routine Screening for iron deficiency anemia Expected: 12/17/2024 (Approximate), Expires: 12/17/2025 [facility] Comment on above: Expected: 12/17/2024 (Approximate), Expires: 12/17/2025 Start: 12-17-2024 End: 12-17-2025 GLUCOSE, GESTATIONAL SCREEN (50G)-135 CUTOFF GLUCOSE, GESTATIONAL SCREEN (50G)-135 CUTOFF Lab Routine Screening for diabetes mellitus (DM) Expected: 12/17/2024 (Approximate), Expires: 12/17/2025 [facility] Comment on above: Expected: 12/17/2024 (Approximate), Expires: 12/17/2025 Start: 12-17-2024 End: 12-17-2025 US for US OB follow up transabdominal approach Imaging Routine related condition in third trimester Expected: 12/17/2024, Expires: 12/17/2025 [facility] Work Phone: Comment on above: Expected: 12/17/2024 , Expires: 12/17/2025 Start: 12-17-2024 End: 12-17-2024 Patient encounter procedure [facility] Comment on above: Arrived Start: 11-19-2024 End: 11-19-2024 Patient encounter procedure [facility] Comment on above: Arrived Start: 10-29-2024 End: 10-29-2024 Patient encounter procedure [facility] Comment on above: Arrived Start: 10-01-2024 End: 10-01-2024 Patient encounter procedure [facility] Comment on above: Amenorrhea; examination or test, positive result Start: 10-01-2024 End: 10-01-2025 US for US OB ANATOMY SINGLE W US OB CERVICAL LENGTH Imaging Routine related condition in second trimester Expected: 10/01/2024, Expires: 10/01/2025 [facility] Work Phone: Comment on above: Expected: 10/01/2024 , Expires: 10/01/2025 Start: 09-02-2024 End: 09-02-2024 Patient encounter procedure 09/02/2024 4:15 PM EST Routine [facility] [address] [place] [phone] Luis Eduardo Euceda, CNM [address] [place] [address] Arrived [facility] Comment on above: Arrived Start: 08-12-2024 End: 08-12-2024 Professional / ancillary services management 08/12/2024 2:00 PM EST Ancillary Procedure [facility] [address] [phone] [facility] Start: 08-12-2024 End: 08-12-2024 ambulatory 08/12/2024 1:30 PM EST Initial [facility] [address] [place] [phone] Luis Eduardo Euceda, CNM [address] [place] [address] Arrived [facility] Comment on above: Arrived Start: 05-19-2024 COVID-19 Vaccine ( season) COVID-19 Vaccine ( season) [facility] Start: 05-19-2024 Influenza vaccination N [facility] Start: 04-18-2023 Influenza vaccination Flu vaccine (S kenia Ended) [facility] Start: 2023 Screening for malign ant neoplasm of cervix Pap smear [facility] Start: 05-19-2022 Influenza vaccination Flu vaccine (S kenia Ended) [facility] Start: 04-13-2022 Screening for Chlamy daniella trachomatis Chlamydia/GC screen [facility] Start: 05-19-2021 Influenza vaccination Flu vaccine (# 1) [facility] Start: 2021 DTaP,Tdap and Td Vaccines (1 - Tdap) DTaP,Tdap and Td Vaccines (1 - Tdap) [facility] Start: 2021 DTaP/Tdap/Td vaccine (1 - Tdap) DTaP/Tdap/Td vaccine (1 - Tdap) [facility] Start: 02-11-2020 Adult BMI Follow Up Plan Adult BMI Follow Up Plan [facility] Start: 02-11-2020 Adult BMI Screening Adult BMI Screen ing [facility] Start: 02-11-2020 Hepatitis C screening Hepatitis C sc reen [facility] Start: 09-12-2019 Hepatitis A vaccine (2 of 2 - 2-dose series) Hepatitis A vaccine (2 of 2 - 2-dose series) [facility] Start: 09-12-2019 HPV vaccine (3 - 3-d ose series) HPV vaccine (3 - 3-dose series) [facility] Start: 05-19-2019 Influenza vaccination Flu vaccine (# 1) [facility] Work Phone: Start: 2018 Chlamydia screen Chlamydia screen [facility] Work Phone: Start: 2018 Meningococcal (ACWY) Vaccine (1 - 2-dose series) Meningococcal (ACWY) Vaccine (1 - 2-dose series) [facility] Phone: Start: 2018 Screening for Chlamy daniella trachomatis Chlamydia screen [facility] Start: 2017 HIV screen HIV screen [facility] Work Phone: Start: 2017 HIV screening HIV screen [facility] Start: 2014 Depression Screen Depression Screen [facility] Start: 2014 Depression Screening Depression Scre ening [facility] Start: 2014 Tobacco Screening Tobacco Screening [facility] Start: 2013 HPV vaccine (1 - 2-d ose series) HPV vaccine (1 - 2-dose series) [facility] Start: 2013 HPV vaccine (1 - Fem noel 2-dose series) HPV vaccine (1 - Female 2-dose series) [facility] Phone: Start: 2009 DTaP/Tdap/Td vaccine (1 - Tdap) DTaP/Tdap/Td vaccine (1 - Tdap) [facility] Phone: Start: 2007 COVID-19 Vaccine (1) COVID-19 Vaccin e (1) [facility] Start: 2003 Hepatitis A vaccine (1 of 2 - 2-dose series) Hepatitis A vaccine (1 of 2 - 2-dose series) [facility] Phone: Start: 2003 Measles,Mumps,Rubell a (MMR) vaccine (1 of 2 - Standard series) Measles,Mumps,Rubella (MMR) vaccine (1 of 2 - Standard series) [facility] Phone: Start: 2003 Varicella vaccine (1 of 2 - 2-dose childhood series) Varicella vaccine (1 of 2 - 2-dose childhood series) [facility] Start: 2002 COVID-19 Vaccine (#1) COVID-19 Vacci ne (#1) [facility] Start: 2002 Polio vaccine 0-18 ( 1 of 3 - 4-dose series) Polio vaccine 0-18 (1 of 3 - 4-dose series) [facility] Phone: Start: 2002 Hepatitis B vaccine (1 of 3 - 3-dose primary series) Hepatitis B vaccine (1 of 3 - 3-dose primary series) [facility] Phone: Start: 2002 Hepatitis C screening Hepatitis C sc reen [facility] Start: 2002 Screening for Chlamy daniella trachomatis Chlamydia Screening [facility] End: 10-31-2021 Bacteria identified in Urine by Culture Urine culture Microbiology Routine One Time for 1 Occurrences starting 10/31/2021 until 10/31/2021 [facility] Phone: Comment on above: One Time for 1 Occur rences starting 10/31/2021 until 10/31/2021 End: 01-17-2022 Culture, Blood 1 [facility] Phone: Comment on above: One Time for 1 Occur rences starting 01/17/2022 until 01/17/2022 End: 01-17-2022 Culture, Blood 2 Culture, Blood 2 Microbiology STAT One Time for 1 Occurrences starting 01/17/2022 until 01/17/2022 [facility] Phone: Comment on above: One Time for 1 Occur rences starting 01/17/2022 until 01/17/2022 End: 01-17-2022 Culture, Urine [facility] Phone: Comment on above: One Time for 1 Occur rences starting 01/17/2022 until 01/17/2022 End: 02-19-2023 Culture, Urine [facility] Phone: Comment on above: One Time for 1 Occur rences starting 02/19/2023 until 02/19/2023 End: 01-17-2022 Lactate, Sepsis Lactate, Sepsis Lab Timed Now Then Every 2hr for 2 Occurrences starting 01/17/2022 until 01/17/2022, 1 completed [facility] Phone: Comment on above: Now Then Every 2hr f or 2 Occurrences starting 01/17/2022 until 01/17/2022, 1 completed Nonrebreather mask oxygen Nonrebreather mask oxygen Respiratory Care Routine As directed - RT (PRN) until discontinued starting 10/31/2021 [facility] Phone: Comment on above: As directed - RT (ME N) until discontinued starting 10/31/2021 Phase I & II - meter ed glucose Phase I & II - metered glucose Point of Care Testing Routine As Needed until discontinued starting 09/06/2019 [facility] Phone: Comment on above: As Needed until disc ontinued starting 09/06/2019 End: 10-31-2021 SVE SVE Point of Care Testing Routine One Time for 1 Occurrences starting 10/31/2021 until 10/31/2021 [facility] Work Phone: Comment on above: One Time for 1 Occur rences starting 10/31/2021 until 10/31/2021 Immunizations Immunization Date Immunization Notes Care Provider [employer] 07-17-2024 influenza virus vacc ine, unspecified formulation Luis Eduardo Floro CN Work Phone: [facility] 04-22-2024 tuberculin skin test ; purified protein derivative solution, intradermal Nom Nurse [facility] 04-10-2024 tuberculin skin test ; purified protein derivative solution, intradermal [facility] Nurse [facility] 10-06-2023 hepatitis B vaccine, adult dosage [facility] Nurse [facility] 07-14-2023 Influenza, injectabl e, Madin [place] Canine Kidney, preservative free, quadrivalent [facility] Nurse [facility] 07-14-2023 influenza virus vacc ine, unspecified formulation [facility] Nurse [facility] 05-04-2023 hepatitis B vaccine, adult dosage [facility] Nurse [facility] 03-28-2023 hepatitis B vaccine, adult dosage [facility] 03-28-2023 measles, mumps and rubella virus vaccine [facility] 03-28-2023 varicella virus vaccine [facility] 03-17-2023 tuberculin skin test ; purified protein derivative solution, intradermal [facility] Nurse [facility] 03-10-2023 tetanus toxoid, redu shiva diphtheria toxoid, and acellular pertussis vaccine, adsorbed [facility] Work Phone: 03-10-2023 tuberculin skin test ; purified protein derivative solution, intradermal [facility] Nurse [facility] 01-12-2022 diphtheria, tetanus toxoids and acellular pertussis vaccine, unspecified formulation Luis Eduardo Floro STORAGE AND BACKUP ADMINISTRATOR - CN Work Phone: [facility] Work Phone: 01-12-2022 measles, mumps and rubella virus vaccine Luis Eduardo Floro STORAGE AND BACKUP ADMINISTRATOR - CN Work Phone: [facility] Work Phone: 10-19-2021 tetanus toxoid, redu shiva diphtheria toxoid, and acellular pertussis vaccine, adsorbed [facility] 09-23-2019 hepatitis A vaccine, pediatric/adolescent dosage, 2 dose schedule [facility] Nurse [facility] 09-23-2019 human papilloma viru s vaccine, bivalent [facility] 05-13-2019 Human Papillomavirus 9-valent vaccine [facility] 03-13-2019 hepatitis A vaccine, pediatric/adolescent dosage, 2 dose schedule [facility] 03-13-2019 Human Papillomavirus 9-valent vaccine [facility] 03-13-2019 meningococcal oligosaccharide (groups A, C, Y and W-135) diphtheria toxoid conjugate vaccine (MCV4O) [facility] 03-13-2019 varicella virus vaccine [facility] 05-05-2014 diphtheria, tetanus toxoids and acellular pertussis vaccine [facility] 05-05-2014 tetanus toxoid, redu shiva diphtheria toxoid, and acellular pertussis vaccine, adsorbed [facility] 12-21-2006 diphtheria, tetanus toxoids and acellular pertussis vaccine [facility] 12-21-2006 measles, mumps and rubella virus vaccine [facility] 12-21-2006 poliovirus vaccine, inactivated [facility] 05-16-2003 diphtheria, tetanus toxoids and acellular pertussis vaccine [facility] 05-16-2003 haemophilus influenz ae type b conjugate and Hepatitis B vaccine [facility] 05-16-2003 hepatitis B vaccine, pediatric or pediatric/adolescent dosage [facility] 02-24-2003 measles, mumps and rubella virus vaccine [facility] 02-24-2003 varicella virus vaccine [facility] 2002 diphtheria, tetanus toxoids and acellular pertussis vaccine [facility] Nurse [facility] 2002 haemophilus influenz ae type b vaccine, PRP-T conjugate [facility] 2002 poliovirus vaccine, inactivated [facility] Nurse [facility] 2002 diphtheria, tetanus toxoids and acellular pertussis vaccine, unspecified formulation [facility] Nurse [facility] 2002 haemophilus influenz ae type b vaccine, conjugate unspecified formulation [facility] 2002 poliovirus vaccine, inactivated [facility] 2002 diphtheria, tetanus toxoids and acellular pertussis vaccine, unspecified formulation [facility] 2002 haemophilus influenz ae type b conjugate and Hepatitis B vaccine [facility] 2002 haemophilus influenz ae type b vaccine, HbOC conjugate [facility] 2002 hepatitis B vaccine, pediatric or pediatric/adolescent dosage [facility] 2002 poliovirus vaccine, inactivated [facility] 2002 hepatitis B vaccine, pediatric or pediatric/adolescent dosage [facility] Payers Date Payer Category Payer [facility] [id number] 2024 [facility] [id number] 2024 Unknown [id number] 2022 Private Health Insurance [employer] [id number] 2020 Unknown [id number] [id number] .[id number] 2020 Unknown 2019 Unknown BC[place] P PO xxxxxxxxxxxx 2019-Present [address] [place] [address] xxxxxxxxxxxx [id number] .[id number] 2002 Unknown [id number] 2.16840.1.812602.3.579.2 .196 2002 Unknown [id number] 2.16840.1.954739.3.579.2 .173 2002 Unknown [id number] 2.16840.1.186574.3.579.2 .173 2002 Unknown [id number] 2.16840.1.844615.3.579.2 .1286 2002 Unknown [id number] 2.16840.1.460539.3.579.2 .1286 2002 Unknown [id number] 2.16840.1.504423.3.579.2 .1286 2002 Unknown [id number] 2.16840.1.872071.3.579.2 .1286 2002 Unknown [id number] 2.16840.1.293474.3.579.2 .1286 2002 Unknown [id number] 2.16840.1.825843.3.579.2 .1286 2002 Unknown [id number] 2.16.840.1.859792.3.579.2 .1258 2002 Unknown [id number] 2.16.840.1.275250.3.579.2 .1258 2002 Unknown [id number] 2.16.840.1.106899.3.579.2 .1258 2002 Unknown [id number] 2.16.840.1.048691.3.579.2 .1258 2002 Unknown [id number] 2.16.840.1.222763.3.579.2 .1258 2002 Unknown [id number] 2.16.840.1.122471.3.579.2 .1258 2002 Unknown [id number] 2.16.840.1.930958.3.579.2 .1258 2002 Unknown [id number] 2.16.840.1.339367.3.579.2 .1258 2002 Unknown [id number] 2.16.840.1.577362.3.579.2 .1258 2002 Unknown [id number] 2.16.840.1.189308.3.579.2 .1258 2002 Unknown [id number] 2.16.840.1.523854.3.579.2 .1258 2002 Unknown [id number] 2.16.840.1.057891.3.579.2 .1258 2002 Unknown [id number] 2.16.840.1.760113.3.579.2 .1258 2002 Unknown [id number] 2.16.840.1.237653.3.579.2 .1258 2002 Unknown [id number] 2.16.840.1.635845.3.579.2 .1258 2002 Unknown [id number] 2.16.840.1.071908.3.579.2 .1258 2002 Unknown [id number] 2.16.840.1.683387.3.579.2 .1259 2002 Unknown [id number] 2.16.840.1.879252.3.579.2 .9 2002 Unknown [id number] 2.16.840.1.948035.3.579.2 .9 2002 Unknown [id number] 2.16.840.1.906307.3.579.2 .9 2002 Unknown [id number] 2.16.840.1.289422.3.579.2 .9 2002 Unknown [id number] 2.16.840.1.070569.3.579.2 .1259 1959 Unknown [id number] Social History Date Type Detail Facility Start: 09-09-2021 Tobacco smoking status [facility] Ex-smoker [facility] Start: 09-09-2021 End: 05-04-2023 Tobacco use and exposure Smokeless tobacco non-user [facility] Phone: Start: 09-09-2021 End: 02-19-2023 Alcohol intake Current non-drinker of alcohol (finding) [facility] Phone: Start: 2002 Sex Assigned At Not on file [facility] Phone: Start: 09-06-2019 End: 05-04-2023 Tobacco smoking status [facility] Never smoker [facility] Phone: History of tobacco use Current smoker [facility] [employer] Phone: Start: 05-06-2024 Alcoholic beverage intake Current drinker of alcohol (finding) [facility] Start: 05-06-2024 End: 08-12-2024 History of Social function [facility] Start: 05-06-2024 End: 08-12-2024 Tobacco use panel [facility] Start: 04-12-2024 Alcohol Comment Caffeine: 4 cu ps of coffee daily [facility] Start: 08-12-2024 End: 02-19-2025 Alcoholic beverage intake Ex-drinker (finding) [facility] Start: 06-26-2024 [facility] Tobacco smoking status NHIS Tobacco smoking consumption unknown [facility] Childcare Unknown [facility] Start: 04-23-2015 Sex Female (finding) [facility] NEGATED: Highlighted rowStart: NINF History of tobacco use Passive smoker [facility] Medical Equipment Procedure Code Equipment Code Equipment Origin al Text Equipment Identifier Dates Dowel Josse Revision [id number] Start: 09-06-2019 System Anchr Truespan Peek 12 Deg [id number] Start: 09-06-2019 System Anchr Truespan Peek 12 Deg [id number] Start: 09-06-2019 System Anchr Truespan Peek 12 Deg [id number] Start: 09-06-2019 Cannulated Revision Dowel [id number] Start: 09-06-2019 Comment on above: Description: ID [id number] Clinical Notes 09-06-2019 to 03-18-2025 TOM Lovelace - 03/18/2025 9:30 AM EDTTOM Lovelace - 03/12/2025 9:30 AM EDTOM Horvath - 03/05/2025 2:00 PM TOM Estrada - 02/26/2025 10:30 AM EDTAttachments Note Date & Type Note Facility 03-18-2025 History of Presen t illness Narrative Subjective No chief complaint on file. Stephanie [...] a routine visit. documented in this encounter [facility] 03-12-2025 History of Presen t illness Narrative Subjective No chief complaint on file. Stpehanie Salas is a 25 y.o. at 39w0d [...] a routine visit. documented in this encounter [facility] 03-05-2025 History of Presen t illness Narrative Subjective No chief complaint on file. Stephanie Salas is a 25 y.o. at 38w0d with a working estimated date of delivery [...] repair 1 Her is complicated by: Heart murmur Objective Physical Exam Weight: 178 lb Expected Total Weight Gain: 15 lb-25 lb Pregravid BMI: 27.25 BP: 120/62 Urine protein-negative Urine glucose-negative Assessment/Plan Continue vitamin. Labs reviewed. GBS taken. Expected mode of delivery vaginal Follow up in 1 week for a routine visit. documented in this encounter [facility] 02-26-2025 History of Presen t illness Narrative Subjective No chief complaint on file. Stephanie Salas is a 25 y.o. at 37w0d with a working estimated date of delivery [...] repair 1 Her is complicated by: Heart murmur Objective Physical Exam Weight: 175 lb Expected Total Weight Gain: 15 lb-25 lb Pregravid BMI: 27.25 BP: 110/70 Urine protein-negative Urine glucose-negative Assessment/Plan Diagnoses and all orders for this visit: Encounter for supervision of other normal , third trimester visit today. Patient is doing well, reports frequent, regular movement. No c/o at this visit. Denies pain, leaking of fluid, no bleeding and no contractions. Had the stomach flu last week with some cramping but feels better and no more cramping. 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 Continue vitamin. Labs reviewed. GBS negative Expected mode of delivery vaginal Follow up in 1 week for a routine visit. documented in this encounter [facility] 02-19-2025 History of Presen t illness Narrative Subjective No chief complaint on file. Stephanie Salas is a 25 y.o. at 36w0d with a working estimated date of delivery [...] labial repair 1 Her is complicated by: No problems today Objective Physical Exam Weight: 173 lb Expected Total Weight Gain: 15 lb-25 lb Pregravid BMI: 27.25 BP: 118/62 Urine protein-negative Urine glucose-negative Assessment/Plan Diagnoses and all orders for this visit: Encounter for supervision of other normal , third trimester screening for streptococcus B - STREPTOCCOUS, GROUP B CULTURE; Future Patient has a history of heart murmur as a child. Saw cardiology and report, reports states no murmur detected and normal echo. Continue vitamin. Labs reviewed. GBS taken today Expected mode of delivery: NSVDS Follow up in 1 week for a routine visit. documented in this encounter [facility] 02-12-2025 History of Presen t illness Narrative Subjective No chief complaint on file. Stephanie Salas is a 25 y.o. at 35w0d with a working estimated date of delivery [...] labial repair 1 Her is complicated by: history of heart murmur No problems Objective Physical Exam Weight: 172 lb Expected Total Weight Gain: 15 lb-25 lb Pregravid BMI: 27.25 BP: 110/70 Urine protein-negative Urine glucose-negative Assessment/Plan Diagnoses and all orders for this visit: Encounter for supervision of other normal , third trimester History of cardiac murmur Continue vitamin. Labs reviewed. GBS taken. Expected mode of delivery vaginal Follow up in 1 week for a routine visit. documented in this encounter [facility] 01-29-2025 History of Presen t illness Narrative Subjective No chief complaint on file. Stephanie Salas is a 24 y.o. at 33w0d with a working estimated date of delivery [...] labial repair 1 Her is complicated by: referred to [facility] FGR- no FGR normal growth scan No problems Objective Physical Exam Weight: 175 lb Expected Total Weight Gain: 15 lb-25 lb Pregravid BMI: 27.25 BP: 118/72 Urine protein-negative Urine glucose-negative Assessment/Plan Diagnoses and all orders for this visit: Encounter for supervision of other normal , third trimester Continue vitamin. Labs reviewed. GBS at 36 weeks Expected mode of delivery Follow up in 1 week for a routine visit. documented in this encounter [facility] 01-20-2025 History of Presen t illness Narrative Stephanie Alvarez JORDI Date of visit: 01/20/2025 Date of : 2000 Age: 24 y.o. There is no problem list on file for this patient. No Known Allergies Current Outpatient Medications Medication Sig Dispense Refill [id number] ( 19) 29 mg iron- 1 mg tablet,chewable Chew 1 tablet and swallow in the morning. No current facility-administered medications for this visit. Chief Complaint Patient presents with New Patient BI LEAD REFERAL LUIS EDUARDO EUCEDA PALPS AND HISTORY OF CARDIAC MURMUR, NO RECENT CARDIAC TESTING DONE, SCHED EW/PT History of Present Illness 24-year-old female , 34 weeks (due date 03/19/2025) is here for initial evaluation for palpitations. She reports very occasional palpitations about a couple times a year prior to this however she tells me that it has been more noticeable while at a frequency of twice a month last a few minutes and resolved spontaneously. Does not have any family history of arrhythmias, early coronary artery disease or sudden cardiac . EKGs today with normal sinus rhythm short ME interval 100 and O2 milliseconds otherwise unremarkable This is her 2nd did not have similar issue with her 1st No heart murmur on exam Past Medical History: Diagnosis Date Acute seasonal allergic rhinitis Anxiety Exercise-induced bronchospasm Heart murmur History of chronic pharyngitis History of Closed fracture of right elbow History of palpitations Lumbar radiculopathy Neurocardiogenic syncope No data recorded No data recorded No data recorded Past Surgical History: Procedure Laterality Date KNEE ARTHROSCOPY W/ LATERAL RETINACULAR REPAIR Family History Problem Relation Age of Onset Hypertension Father Cirrhosis Father Hypertension Maternal Aunt Diabetes Maternal Aunt Hypertension Maternal Grandmother Diabetes Maternal Grandmother Cancer Maternal Grandfather Hypertension Maternal Grandfather Social History Socioeconomic History Marital status: Spouse name: Not on file Number of children: Not on file Years of education: Not on file Highest education level: Not on file Occupational History Not on file Tobacco Use Smoking status: Never Passive exposure: Never Smokeless tobacco: Never Vaping Use Vaping status: Never Used Substance and Sexual Activity Alcohol use: Not Currently Drug use: Never Sexual activity: Yes Partners: Male control/protection: None Other Topics Concern Caffeine Use Yes Social History Narrative Not on file Social Drivers of Health Financial Resource Strain: Not on file Food Insecurity: No Food Insecurity (01/20/2025) Hunger Screening Food Insecurity - Worry: Never True Food Insecurity - Inability: Never True Transportation Needs: Not on file Physical Activity: Not on file Stress: Not on file Social Connections: Not on file Interpersonal Safety: Not on file Housing Instability: Not on file Review of Systems Review of Systems Constitutional: Negative. HENT: Negative. Eyes: Negative. Cardiovascular: Negative. Respiratory: Negative. Endocrine: Negative. Hematologic/Lymphatic: Negative. Skin: Negative. Musculoskeletal: Negative. Gastrointestinal: Negative. Genitourinary: Negative. Neurological: Negative. Psychiatric/Behavioral: Negative. Allergic/Immunologic: Positive for environmental allergies. Vascular: Negative. CARDIOVASCULAR: Please review HPI. Physical Examination General appearance: Alert, oriented and cooperative. In no acute distress. Respiratory: Clear to auscultation bilaterally, no use of accessory muscles. Cardiovascular: RRR with normal S1 and S2 with no murmurs. Gastrointestinal: Soft, non-tender. Bowel sounds normal. Musculoskeletal: No peripheral edema. Neurologic: Oriented to time, person and place, affect appropriate. No focal/major motor defects noted. Psychiatric: Appropriate mood, memory and judgement. VITAL SIGNS: BP 114/72 Pulse 97 Ht 157.5 cm (5' 2 ) Wt 76.7 kg (169 lb) LMP 06/12/2024 SpO2 98% BMI 30.91 kg/m No orders of the defined types were placed in this encounter. There are no discontinued medications. IMPRESSIONS/PLAN 1. Palpitations - POCT EKG Palpitations Short ME interval 102 ms / sinus arrhythmia on EKG , 34 weeks Echocardiogram for structural evaluation 30 days event monitor reported frequency twice a month instructed to turn back the monitor sooner if she feels the palpitations sooner. Follow-up after testing TODAYS ORDERS Orders Placed This Encounter Procedures POCT EKG FOLLOW UP No follow-ups on file. PCP: No primary care provider on file. Referring Physician: No referring provider defined for this encounter. documented in this encounter [facility] 01-15-2025 History of Presen t illness Narrative Subjective No chief complaint on file. Stephanie Salas is a 24 y.o. at 31w0d with a working estimated date of delivery [...] labial repair 1 Her is complicated by: Objective Physical Exam Weight: 166 lb Expected Total Weight Gain: 15 lb-25 lb Pregravid BMI: 27.25 BP: 118/78 Urine protein-negative Urine glucose-negative Assessment/Plan Diagnoses and all orders for this visit: Encounter for supervision of other normal , third trimester Continue vitamin. Labs reviewed. GBS at 36 weeks Expected mode of delivery Follow up in 2 weeks for a routine visit. documented in this encounter [facility] 12-27-2024 History of Presen t illness Narrative Headache/epigastric pain/blurry vision/swelling? No Cramping/contractions? No Abnormal vaginal discharge? No Spotting/vaginal bleeding? No Loss or gush of fluid like your water may have broken? No Do you have cats at home? Yes Do you change the litter box (reason: risk of toxoplasmosis)? No Genetic testing done this here or other office? declined Have you been seen here at [facility] in a previous ? No Recent ER visits or hospitalizations? No Bring blood sugar log or meter with you today? (Please bring them with you for every visit at [facility]) n/a Flu vaccine (Jul-November)? Yes Any concerns that you would like me to mention to the provider today? No REASON FOR CONSULTATION: growth restriction HISTORY OF PRESENT ILLNESS: Stephanie SALAS is a pleasant 24 y.o. at 28w2d due on Estimated Date of Delivery: 03/19/25. complicated by: Normal growth, EFW 11%, AC 15% Today, the patient is doing well. She denies headaches, vision changes, nausea, vomiting, right upper quadrant or epigastric pain, SOB or chest pain. She denies contractions, vaginal bleeding, leaking of fluid. She reports good movement. Aneuploidy screening: Declined Carrier screening: Baby girl I have reviewed the pertinent available patient records including but not limited to notes, labs and images. PAST OBSTETRICAL HISTORY: OB History Para Term AB Living 3 1 1 1 SAB IAB Ectopic Multiple Live Births 0 # Outcome Date GA Lbr Yusuf/2nd Weight Sex Type Anes PTL Lv 3 Current 2 Molar 2022 1 Term 01/12/22 40w0d 2.835 kg F Vag-Spont Complications: Second degree perineal laceration during delivery, Labial tear MEDICAL HISTORY: Past Medical History: Diagnosis Date Acute seasonal allergic rhinitis Anxiety Exercise-induced bronchospasm Heart murmur History of chronic pharyngitis History of Closed fracture of right elbow History of palpitations Lumbar radiculopathy Neurocardiogenic syncope SURGICAL HISTORY: Past Surgical History: Procedure Laterality Date KNEE ARTHROSCOPY W/ LATERAL RETINACULAR REPAIR FAMILY/GENETIC HISTORY: Family History Problem Relation Age of Onset Hypertension Father Cirrhosis Father Hypertension Maternal Aunt Diabetes Maternal Aunt Hypertension Maternal Grandmother Diabetes Maternal Grandmother Cancer Maternal Grandfather Hypertension Maternal Grandfather SOCIAL HISTORY: Social History Tobacco Use Smoking status: Never Passive exposure: Never Smokeless tobacco: Never Substance Use Topics Alcohol use: Not Currently Drug use: Never ALLERGIES: No Known Allergies CURRENT MEDICATIONS: Current Outpatient Medications: [id number] acid ( 19) 29 mg iron- 1 mg tablet,chewable, Chew 1 tablet and swallow in the morning., Disp: , Rfl: RECENT HOSPITALIZATION: none HABITS: Patient activity no restrictions, diet no restrictions REVIEW OF SYSTEMS: Head and Neck: Negative for any dizziness and headaches. Cardiovascular and Respiratory System: Denies any chest pain, shortness of breath, and coughing. Abdominal and System: Denies any abdominal pain, nausea, vomiting, vaginal bleeding, and vaginal discharge REVIEW OF TESTS AND ULTRASOUND REPORTS: Referral records and [facility] chart were reviewed Pertinent Ultrasound findings are see formal ultrasound report. PHYSICAL EXAMINATION: BP 117/59 Pulse 82 Ht 157.5 cm (5' 2 ) Wt 70.3 kg (155 lb) LMP 06/12/2024 BMI 28.35 kg/m Well-appearing in no distress. Respirations not labored, speaking comfortably in full sentences Gravid abdomen OVERALL ASSESSMENT -Stephanie SALAS is a pleasant 24 y.o. at 28w2d -suspected growth not found SUMMARY/RECOMMENDATION: Incomplete level 2 anatomy ultrasound, attempt completion with repeat growth in 4-6 weeks gestation Normal growth ultrasound, EFW 11% Anticipate term delivery at local hospital, vaginal delivery is preferred mode reserving for usual obstetrical indications DISPOSITION: At this point the patient is in complete care of her supervisor rides. Patient does have ultrasound scheduled with us. Thank you for allowing me to participate in the care of Stephanie SALAS. If there any questions please do not hesitate to contact us. Tiara Castro MD Maternal- Medicine [facility] [address] [place] [address] [facility], the CDC, and other organizations representing maternal and public health professionals recommend that , , and lactating people and those considering receive the COVID-19 vaccination. Vaccination is the best method to reduce maternal and complications of SARS-CoV-2 infection. This document was created with [employer] technology. Though I make every effort to review the dictation as it is transcribed, on occasion the spoken word can be misinterpreted by the technology leading to inappropriate words, phrases, or sentences. This note is addressed to the requesting provider as a consultation for clinical guidance. Specific medical abbreviations are occasionally used and those are generally approved by the [place]?Board of?Obstetrics and?Gynecology?as well as?Fazal hummel abbreviations. The above plan of care was based solely on the diagnoses for which a consultation was requested. ?More frequent testing may be indicated based on her other medical/obstetrical conditions. The management of other or medical conditions is beyond the scope of requested consultation and will continue to be followed by the primary supervisor rides or primary care provider. Note to patient: The Century Cures Act makes medical notes like these available to patients in the interest of transparency. However, be advised this is a medical document. It is intended as peer to peer communication. It is written in medical language and may contain abbreviations or verbiage that are unfamiliar. It may appear blunt or direct. Medical documents are intended to carry relevant information, facts as evident, and the clinical opinion of the practitioner. documented in this encounter [facility] 12-17-2024 History of Presen t illness Narrative Subjective No chief complaint on file. Stephanie Salas is a 24 y.o. at 26w6d with a working estimated date of delivery [...] labial repair 1 Her is complicated by: low lying placenta, minimal visualization on last US due to baby position The following portions of the chart were reviewed this encounter and updated as appropriate: Objective Physical Exam weight: 160 lb Expected Total Weight Gain: 15 lb-25 lb Pregravid BMI: 27.25 BP: 110/60 Patient scheduled for repeat US next week for assessment of low lying placenta and visualization of anatomy. Scheduled for Monday12/23/24 Urine protein-negative Urine glucose-negative Labs: reviewed Imaging Assessment/Plan Diagnoses and all orders for this visit: Encounter for supervision of other normal , second trimester related condition in third trimester - US OB follow up transabdominal approach; Future Screening for diabetes mellitus (DM) - GLUCOSE, GESTATIONAL SCREEN (50G)-135 CUTOFF; Future Screening for iron deficiency anemia - CBC; Future Continue vitamin. Labs reviewed. Rhogam not needed patient is O+ GTT at 28 weeks Follow up in 2 weeks for a routine visit and GTT documented in this encounter [facility] 12-09-2024 Miscellaneous Notes BI LEAD REFERAL LUIS EDUARDO EUCEDA, PALPITATIONS, HISTORY OF CARDIAC MURMUR - T/C TO PT. VM NOT SET UP; PHONED PT TO SCHED BI LEAD REFERRAL, NO VM SET UP; JSL 11/25/2024 - 12/02/2024 UNABLE TO LM FOR PT TO SCHED BI LEAD REFERRAL NO VM SET UP JSL documented in this encounter [facility] 12-09-2024 Telephone encounter Note BI LEAD REFERAL LUIS EDUARDO FLORO, PALPITATIONS, HISTORY OF CARDIAC MURMUR - T/C TO PT. VM NOT SET UP; PHONED PT TO SCHED BI LEAD REFERRAL, NO VM SET UP; [facility] 11/25/2024 - 12/02/2024 UNABLE TO LM FOR PT TO SCHED BI LEAD REFERRAL NO VM SET UP [facility]SL [facility] 12-02-2024 Miscellaneous Notes BI LEAD REFERAL LUIS EDUARDO FLORO, PALPITATIONS, HISTORY OF CARDIAC MURMUR - T/C TO PT. VM NOT SET UP; PHONED PT TO SCHED BI LEAD REFERRAL, NO VM SET UP; J[facility] 11/25/2024 - 12/02/2024 UNABLE TO LM FOR PT TO SCHED BI LEAD REFERRAL NO VM SET UP JSL documented in this encounter [facility] 12-02-2024 Telephone encounter Note BI LEAD REFERAL LUIS EDUARDO FLORO, PALPITATIONS, HISTORY OF CARDIAC MURMUR - T/C TO PT. VM NOT SET UP; PHONED PT TO SCHED BI LEAD REFERRAL, NO VM SET UP; J[facility] 11/25/2024 - 12/02/2024 UNABLE TO LM FOR PT TO SCHED BI LEAD REFERRAL NO VM SET UP [facility] 11-25-2024 Miscellaneous Notes BI LEAD REFERAL LUIS EDUARDO FLORO, PALPITATIONS, HISTORY OF CARDIAC MURMUR - T/C TO PT. VM NOT SET UP; PHONED PT TO SCHED BI LEAD REFERRAL, NO VM SET UP; JSL 11/25/2024 documented in this encounter [facility] 11-25-2024 Telephone encounter Note BI LEAD REFERAL LUIS EDUARDO EUCEDA, PALPITATIONS, HISTORY OF CARDIAC MURMUR - T/C TO PT. VM NOT SET UP; PHONED PT TO SCHED BI LEAD REFERRAL, NO VM SET UP; JSL 11/25/2024 [facility] 11-19-2024 History of Presen t illness Narrative Subjective No chief complaint on file. Stephanie Salas is a 24 y.o. at 22w6d with a working estimated date of delivery [...] labial repair 1 Her is complicated by: c/o heart palpitations, shortness of breathe with them. History of cardiac murmur as a child The following portions of the chart were reviewed this encounter and updated as appropriate: Objective Physical Exam weight: 158 lb Expected Total Weight Gain: 15 lb-25 lb Pregravid BMI: 27.25 BP: 120/70 Urine protein-negative Urine glucose-negative Labs: reviewed Imaging Assessment/Plan Cardiology referral and then to [facility] if needed or recommended Continue vitamin. Labs reviewed. Rhogam GTT . Follow up in 2 weeks for a routine visit. documented in this encounter [facility] 10-29-2024 History of Presen t illness Narrative Subjective No chief complaint on file. Stephanie Salas is a 24 y.o. at 19w6d with a working estimated date of delivery [...] labial repair 1 Her is complicated by: The following portions of the chart were reviewed this encounter and updated as appropriate: Objective Physical Exam weight: 149 lb Expected Total Weight Gain: 15 lb-25 lb Pregravid BMI: 27.25 BP: 120/80 Urine protein-negative Urine glucose-negative Labs: reviewed Imaging Assessment/Plan Diagnoses and all orders for this visit: Encounter for supervision of other normal , second trimester Continue vitamin. Labs reviewed. Rhogam GTT at 28 weeks Follow up in 2 weeks for a routine visit. documented in this encounter [facility] 10-01-2024 History of Presen t illness Narrative Subjective No chief complaint on file. Stephanie Salas is a 24 y.o. at 15w6d with a working estimated date of delivery [...] labial repair 1 Her is complicated by: The following portions of the chart were reviewed this encounter and updated as appropriate: \ Objective Physical Exam weight: 150 lb Expected Total Weight Gain: 15 lb-25 lb Pregravid BMI: 27.25 BP: 120/80 Urine protein-negative Urine glucose-negative Labs: reviewed Imaging Assessment/Plan Diagnoses and all orders for this visit: Encounter for supervision of other normal , second trimester Amenorrhea - Ambulatory referral to Obstetrics / Gynecology examination or test, positive result - Ambulatory referral to Obstetrics / Gynecology Continue vitamin. Labs reviewed. Rhogam GTT at 28 weeks Follow up in 2 weeks for a routine visit. documented in this encounter [facility] 09-02-2024 History of Presen t illness Narrative Subjective No chief complaint on file. Stephanie Clemente is a 24 y.o. at 11w5d with a working estimated date of delivery of 03/19/2025, by Last Menstrual Period who presents for a routine visit. She denies vaginal bleeding, leakage of fluid, decreased movements, and contractions. OB History Para Term AB Living 3 1 1 1 SAB IAB Ectopic Multiple Live Births # Outcome Date GA Lbr Yusuf/2nd Weight Sex Type Anes PTL Lv 3 Current 2 Term 01/12/22 40w0d 6 lb 4 oz F Vag-Spont N Comments: 2nd degree and right labial repair 1 Her is complicated by: The following portions of the chart were reviewed this encounter and updated as appropriate: Objective Physical Exam weight: 149 lb, Pregravid BMI: Could not be calculated Expected Total Weight Gain: Could not be calculated Labs Imaging Assessment/Plan Diagnoses and all orders for this visit: Encounter for supervision of other normal , first trimester Urine protein Urine glucose Continue vitamin. Labs drawn today Anatomy scan at 20 weeks. Follow up in 4 weeks for a routine visit. documented in this encounter [facility] 08-12-2024 Note TITLE OF EXAM: US OB < 14 WEEKS EARLY REASON FOR EXAM: Obstetric evaluation TECHNIQUE: Grayscale, color, and spectral Doppler ultrasound evaluation of the pelvis. COMPARISON: None. FINDINGS: LMP: 06/12/2024 Measurements: Duran rump length: 1.9 cm (8 weeks, 3 days) Mean sac diameter: 3.7 cm (9 weeks, 0 days) Heart rate: 163 bpm Yolk sac: 0.3 cm diameter Uterus: 10.0 x 9.0 x 6.4 cm Right ovary: 3.5 x 2.1 x 2.0 cm Left ovary: 2.8 x 1.6 x 2.2 cm Cervical length: 2.5 cm Sonographic age: 8 weeks, 5 days (age by LMP 8 weeks, 5 days) Uterus: Single live fundal intrauterine gestation with pole, yolk sac, and gestational sac but do not demonstrate abnormality. The uterus is anteverted. There are no appreciable fibroids or other masses. The right ovary demonstrates physiologic follicles and normal low resistance arterial inflow and present venous flow on color and pulsed Doppler. Corpus luteum measures approximately 1.3 cm, peripherally hyperemic. The left ovary demonstrates physiologic follicles and normal low resistance arterial inflow and present venous flow on color and pulsed Doppler. Physiologic volume/distribution free fluid in the pelvis. No concerning adnexal mass visualized. IMPRESSION: 1. Single live intrauterine gestation sonographically measuring 8 weeks, 5 days, matching gestational age by LMP. 2. No sonographic abnormality of the evaluated maternal structures or of the embryo. DICTATED ON: 08/12/2024 12:45 PM This report has been electronically signed and approved by the interpreting radiologist. Not Available 08-12-2024 History of Presen t illness Narrative Subjective Stephanie Clemente is a 24 y.o. at 8w5d with a working estimated date of delivery of 03/19/2025, by Last Menstrual Period who presents for an initial visit. This is planned. Patient Care Team: Amanda Urrutia MD as PCP - General (Family Medicine) Lillie Barry NP as Nurse Practitioner (Family Medicine) OB History Para Term AB Living 3 1 1 1 SAB IAB Ectopic Multiple Live Births # Outcome Date GA Lbr Yusuf/2nd Weight Sex Type Anes PTL Lv 3 Current 2 Term 01/12/22 40w0d 6 lb 4 oz F Vag-Spont N Comments: 2nd degree and right labial repair 1 Her is complicated by: Nausea and vomiting Patient referred by Gynecology History Last Pap 05/04/23..normal The following portions of the chart were reviewed this encounter and updated as appropriate: Review of Systems Negative except Objective Physical Exam weight: 149 lb Expected Total Weight Gain: Could not be calculated [place] BMI: Could not be calculated Urine protein Urine glucose Labs Assessment/Plan Blue education folder given. Patient educated on safe medication list. Genetic testing information given. Discussed the do's and don'ts in the blue folder. We discussed labs and what we draw and what we are testing for. Patient is also informed that we do a urine drug test. Patient also given office phone number and [facility] number to call in case of an emergency or after hours needs. PVU and all questions answered. We did discuss place of delivery. Patient should plan to go to [facility] for all services unless an emergency and they need to go to the closest ER. We can make other arrangements possibly if patient would like to deliver at another facility but I did explain I am now at [facility] 100% of the time and would like to do all deliveries there. documented in this encounter [facility] 05-17-2024 History of Presen t illness Narrative Patient presents today for urine recheck. documented in this encounter [facility] 02-19-2023 [facility] Discharg e instructions Cassius Hoskins MD - 02/19/2023 4:33 AM EDT Take the medication as prescribed and drink plenty of fluids to prevent dehydration. Make sure to finish the antibiotics. Return to the ER for any progression of your symptoms and follow-up with your primary care physician next to 3 days. The following attachments cannot be sent through Care Everywhere.UTI (Urinary Tract Infection): Female (Tongan)documented in this encounter [employer] Phone: 01-17-2022 Hospital Discharg e instructions Patric Barr PA-C - 01/17/2022 Start on cefdinir 300 mg twice daily for the next 7 days. Drink plenty of fluids at home. Self quarantine for the next 9 days. Return to the emergency room for worsening symptoms. The following attachments cannot be sent through Care Everywhere.Coronavirus Disease (COVID-19): General Info (Tongan)UTI (Urinary Tract Infection): Female (Tongan)documented in this encounter [employer] Phone: 01-13-2022 Hospital course Narrative Obstetrical Discharge Form Gestational Age:40w1d Antepartum complications: none Date of Delivery: 01/12/2022 Type of Delivery: Delivered By: Jonathon Euceda APRN, CNM Assisted By:N/A Baby: female Anesthesia: epidural Intrapartum complications: None Feeding method: breast Blood type: O POSITIVE Rubella: No results found for: RUBG T. Pallidium, IGG: No results found for: TREPG Hepatitis B Surface Antigen: No results found for: HEPBSAG HIV: No results found for: FNS09KL Results for orders placed or performed during the hospital encounter of 01/11/22 GBS, External Result Result Value Ref Range GBS, External Result NEGATIVE C. Trachomatis, External Result Result Value Ref Range C. Trachomatis, External Result negative N. Gonorrhoeae, External Result Result Value Ref Range N. Gonorrhoeae, External Result negative Hepatitis B, External Result Result Value Ref Range Hep B, External Result NEGATIVE Rubella Titer, External Result Result Value Ref Range Rubella Titer, External Result 1.80 HIV, External Result Result Value Ref Range HIV, External Result NR RPR, External Lab Result Value Ref Range RPR, External Result negative CBC auto differential Result Value Ref Range WBC 12.1 4.5 - 13.5 k/uL RBC 4.37 3.95 - 5.11 m/uL Hemoglobin 12.9 11.9 - 15.1 g/dL Hematocrit 39.1 36.3 - 47.1 % MCV 89.5 82.6 - 102.9 fL MCH 29.5 25.2 - 33.5 pg MCHC 33.0 28.4 - 34.8 g/dL RDW 12.6 11.8 - 14.4 % Platelets 194 138 - 453 k/uL MPV 11.1 8.1 - 13.5 fL NRBC Automated 0.0 0.0 per 100 WBC Seg Neutrophils 84 (H) 34 - 64 % Lymphocytes 11 (L) 25 - 45 % Monocytes 5 2 - 8 % Eosinophils % 0 (L) 1 - 4 % Basophils 0 0 - 2 % Immature Granulocytes 0 0 % Segs Absolute 10.07 (H) 1.80 - 8.00 k/uL Absolute Lymph # 1.32 1.20 - 5.20 k/uL Absolute Pickett # 0.63 0.10 - 1.40 k/uL Absolute Eos # 0.04 0.00 - 0.44 k/uL Basophils Absolute <0.03 0.00 - 0.20 k/uL Absolute Immature Granulocyte 0.05 0.00 - 0.30 k/uL Rh Factor, External Result Result Value Ref Range Rh Factor, External Result + ABO, External Result Result Value Ref Range ABO, External Result O Rh Factor, External Result Result Value Ref Range Rh Factor, External Result + ABO, External Result Result Value Ref Range ABO, External Result O TYPE AND SCREEN Result Value Ref Range Expiration Date 01/14/2022,2359 Arm Band Number [id number] ABO/Rh O POSITIVE Antibody Screen NEGATIVE complications: none Discharge Medication: Medication List START taking these medications docusate sodium 100 MG capsule Commonly known as: COLACE Take 1 capsule by mouth 2 times daily as needed for Constipation ibuprofen 800 MG tablet Commonly known as: ADVIL;MOTRIN Take 1 tablet by mouth every 8 hours CONTINUE taking these medications VITAMINS PO Where to Get Your Medications These medications were sent to [facility]/pharmacy #[id number] [place] [address] - [phone] [address] [facility] [id number] docusate sodium 100 MG capsule ibuprofen 800 MG tablet Admit date: 01/11/2022 5:40 PM Discharge Date: 01/13/2022 Discharged to: Home in stable condition Plan: Follow up in 2 week(s) for post visit, blood pressure check, breast feeding check and post depression check documented in this encounter [facility] Phone: 01-13-2022 History of Presen t illness Narrative Department of Obstetrics and Gynecology Labor and Delivery Post Progress Note SUBJECTIVE: Pt reports she is doing well this am. Desires discharge to home today if is discharged. OBJECTIVE: Vitals: BP 121/61 Pulse 88 Temp 98.5 F (36.9 C) Resp 16 Ht 5' 2 (1.575 m) Wt 174 lb (78.9 kg) LMP 04/06/2021 (Exact Date) SpO2 99% Unknown BMI 31.83 kg/m Patient Vitals for the past 24 hrs: BP Temp Temp src Pulse Resp 01/13/22 0000 121/61 98.5 F (36.9 C) 88 01/12/22 1944 (!) 123/58 98.6 F (37 C) Oral 90 16 01/12/22 1531 106/64 98.6 F (37 C) Oral 102 16 01/12/22 1205 121/62 98.6 F (37 C) Oral 90 18 01/12/22 0758 119/64 98 F (36.7 C) Oral 108 18 01/12/22 0753 119/64 108 01/12/22 0738 122/70 102 ABDOMEN: FFM U/2 GENITAL/URINARY: No concerns, light lochia Cor: RRR no Murmurs Pulmonary: clear to auscultation anterior and posterior Extremities: no Clubbing cyanosis or ecchymosis Psych: Appears to be bonding well with , appropriate affect. DATA: CBC: Lab Results Component Value Date WBC 12.1 01/11/2022 RBC 4.37 01/11/2022 HGB 12.9 01/11/2022 HCT 39.1 01/11/2022 MCV 89.5 01/11/2022 MCH 29.5 01/11/2022 MCHC 33.0 01/11/2022 RDW 12.6 01/11/2022 PLT 194 01/11/2022 MPV 11.1 01/11/2022 ASSESSMENT : Principal Problem: Normal labor 40 weeks gestation Plan: Routine care. Reviewed discharge education. Rx to pharmacy for motrin. Follow up in office in 2 weeks. CNM called to room as patient is feeling pressure and urge to push. She is 8/90/0 and is sitting up for her epidural. Patient does c/o overbearing urge to push and does moan loudly and push involuntarily occasionally. I remained in the room for epidural procedure. Patient laid down in a left tilt position after epidural is placed. SVE done and patient is 9/90/+1. She states the pain is better and the pressure is far less. She is resting with her eye closed, lights dimmed. Relaxed. CNM to room. SVE 3-4/80/-1 AROM With small fore bag with return of scant amount of clear, odorless fluid. FHTs stable before, during and after ROM. Patient tolerated well. documented in this encounter [facility] Phone: 10-31-2021 Hospital Discharg e Minda Christensen RN - 10/31/2021 vegetable farming supervisor Zofran from [facility] in [place] and take as directed on the bottle. Follow up with Luis Eduardo Euceda CNM as scheduled. The following attachments cannot be sent through Care Everywhere. Labor (Tongan)documented in this encounter [facility] Phone: 09-06-2019 History of Presen t illness Narrative Patient verbalizes readiness for discharge. All criteria met. IV removed. All belongings provided to patient. Discharge Criteria Inpatients must meet Criteria 1 through 7. All other patients are either YES or N/A. If a NO is chosen then Anesthesia or Surgeon must be notified. 1. Minimum 30 minutes after last dose of sedative medication, minimum 120 minutes after last dose of reversal agent. Yes 2. Systolic BP stable within 20 mmHg for 30 minutes & systolic BP between 90 & 180 or within 10 mmHg of baseline. Yes 3. Pulse between 60 and 100 or within 10 bpm of baseline. Yes 4. Spontaneous respiratory rate >/= 10 per minute. Yes 5. SaO2 >/= 95 or >/= baseline. Yes 6. Able to cough and swallow or return to baseline function. Yes 7. Alert and oriented or return to baseline mental status. Yes 8. Demonstrates controlled, coordinated movements, ambulates with steady gait, or return to baseline activity function. Yes 9. Minimal or no pain or nausea, or at a level tolerable and acceptable to patient. Yes 10. Takes and retains oral fluids as allowed. Yes 11. Procedural / perioperative site stable. Minimal or no bleeding. Yes 12. If GI endoscopy procedure, minimal or no abdominal distention or passing flatus. N/A 13. Written discharge instructions and emergency telephone number provided. Yes 14. Accompanied by a responsible adult. Yes Adult patient discharged from facility without responsible person meets above criteria plus the following: a) remains awake without stimulus for 30 minutes b) oriented appropriate for age c) all vital signs stable d) no significant risk of losing protective reflexes e) able to maintain pre-procedure mobility without assistance f) no nausea or dizziness g) transportation arrangements that do not require patient to operate motor Vehicle. N/A Discharge instructions reviewed with patient and patient's mother. Verbalized understanding and denied any questions. Report given to Alex Lopez RN Patient's dad Mao instructed on the pre-operative, intra-operative, and post-operative process. Patient's dad instructed on pt's NPO status. Medication instructions and Pre operative instruction sheet reviewed over the phone with aliya Cavanaugh. Instructed pt's dad to have pt bring crutches and brace to the hospital the day of surgery. Attempted PAT phone call; no answer; message left to return PAT phone call. documented in this encounter [facility] Phone: 09-06-2019 Hospital Discharg e instructions Mel Lopez RN - 09/06/2019 SAME DAY SURGERY DISCHARGE INSTRUCTIONS 1. Do not drive or operate hazardous machinery for 24 hours or when cleared by physician. 2. Do not make important personal or business decisions for 24 hours. 3. Do not drink alcoholic beverages for 24 hours. 4. Do not smoke tobacco products for 24 hours. 5. Eat light foods (Jell-O, soups, etc....) and drink plenty of fluids (water, Sprite, etc...) up to 8 glasses per day, as you can tolerate. Postoperative Instructions The following guidelines will help you recover quickly and safely during the postoperative period. Please do not hesitate to contact our office if you have further questions or need clarification of this information. Activity -Minimize activity at home for the first 72 hours -Keep extremity elevated when sitting or lying down, but keep knee straight -Use 2 crutches for the next 6 weeks -Non weight bearing for 6 weeks. -No Driving. Wound Care -Leave dressing on until your first office visit -You may shower as long as the dressing is covered so it does not get wet. If the dressing happens to get extremely wet it is fine to remove the wet dressing and place a new dressing -No baths or whirlpools until 21 days after the surgery -If your bandages becomes soaked With bright red blood, place another dressing pad over your bandages. Do not remove original bandage. Call your surgeon for further instructions at [phone]. If it is after 5 pm during the week or on the weekend, call [phone] to speak with the doctor director of transportation Report to surgeon if: Report the following signs or any questions regarding your physical condition to your surgeon immediately: Excessive swelling of, or around the wound area Redness Temperature of 101 (degrees F) or above Excessive pain Brace -Always use the brace while walking or when out of the house. -Use the brace while sleeping. -It is fine to remove the brace while resting. Home Exercises -Work on straightening your knee. Never put anything under the knee to keep it bent. -Place a pillow under the heel for 10-15 minutes each waking hour -See Exercise sheet Prescriptions -You will be given prescriptions for a narcotic. Take them as prescribed. Follow-Up - Call for an appointment to see your surgeon in 1 week(s). To begin the day after surgery 5-6 times a day for 15-20 minutes QUAD SETS 1. Sit on a firm flat surface with your hands behind you for support 2. Bend your uninvolved leg, keeping the involved leg straight. 3. Straighten out the involved leg as much as possible, tightening the muscle on top of your thigh 4. Hold 15 seconds. Relax 5. Repeat for 2-3 minutes. STRAIGHT LEG RAISE 1. Lie on your back with involved knee straight. Bend the other knee and place foot with firm contact with the floor; 2. Tighten your thigh muscle on the involved side and slowly lift your leg. 3. Lift as high as the other bent knee. Now retighten the thigh muscle. Hold for 2-3 seconds. . 4. Lower the leg back to the floor slowly. Completely relax. 5. Re-tighten the thigh and repeat x 10 HEEL SLIDES 1. Lie on your back with your legs out straight and relaxed. 2. Keep your kneecaps pointed toward the ceiling throughout the exercise. 3. Slide one foot toward your buttocks, bending your knee and hip. Do not bend your hip more than 80 degrees. 4. Slowly return to the starting position. LONG ARC QUAD 1. Sit on a sturdy surface high enough that your feet do not touch the floor, 2. Checkout Operator the sides of the surface for support. 3. Raise one foot until your knee is completely straight 4. Slowly return to the starting position and relax. 5. Repeat 20 times ANKLE PUMPS 1. Bend ankles up and down, alternating foot 2. Repeat 25 times Sharee Guzman M.D. [phone] documented in this encounter [facility] Phone: Evaluation note Diagnosis New ACL tear, right, initial encounter- Primary documented in this encounter [facility] Phone: evaluation note* Diagnosis Normal labor- Primary 40 weeks gestation of state, incidental (spontaneous vaginal delivery) Normal delivery documented in this encounter [facility] Phone: evaluation note* Diagnosis COVID-19- Primary Acute UTI Urinary tract infection, site not specified documented in this encounter [facility] Phone: evaluation note* Diagnosis Acute cystitis with hematuria- Primary Acute cystitis documented in this encounter [facility]AMA[facility] [employer] Phone: evaluation note* Diagnosis Encounter for supervision of other normal , first trimester- Primary [facility] Diagnosis H/O urinary tract infection- Primary [facility]* Diagnosis Amenorrhea Absence of menstruation examination or test, positive result [facility]* Diagnosis Encounter for supervision of other normal , second trimester- Primary Amenorrhea Absence of menstruation examination or test, positive result related condition in second trimester [facility]* Diagnosis Encounter for supervision of other normal , second trimester- Primary [facility]* Diagnosis Palpitation- Primary Palpitations History of cardiac murmur Personal history of other diseases of circulatory system [facility] Diagnosis Encounter for supervision of other normal , second trimester- Primary related condition in third trimester Screening for diabetes mellitus (DM) Screening for diabetes mellitus Screening for iron deficiency anemia [facility]* Diagnosis Suspected problem with growth not found- Primary 28 weeks gestation of documented in this encounter [facility]* Diagnosis Suspected problem with growth not found- Primary documented in this encounter [facility]* Diagnosis Encounter for supervision of other normal , third trimester- Primary [facility]* Diagnosis Palpitations- Primary documented in this encounter [facility]* Diagnosis Encounter for supervision of other normal , third trimester- Primary History of cardiac murmur Personal history of other diseases of circulatory system [facility]* Diagnosis Encounter for supervision of other normal , third trimester- Primary [facility]* Diagnosis Encounter for supervision of other normal , third trimester- Primary screening for streptococcus B screening for Streptococcus B [facility]* Diagnosis Encounter for supervision of other normal , third trimester ([facility])- Primary [facility] Diagnosis Encounter for supervision of other normal , third trimester ([facility])- Primary [facility]* Diagnosis Encounter for supervision of other normal , third trimester ([facility])- Primary History of cardiac murmur Personal history of other diseases of circulatory system documented in this encounter [facility] Discharge [facility]* Attachments The following attachments cannot be sent through Care Everywhere. * (Tongan) * Care (Tongan) * : Exercises (Tongan) * Depression: (Tongan) * Parenting: Stress and Infants (Tongan) [facility] Phone: InstructionsNot on filedocumented in this encounter [facility]Not on filedocumented in this encounter [facility]InstructionsNot on filedocumented in this encounter [facility]Not on filedocumented in this encounter [facility] SystemReason for visit Narrative* Maternity Services (Routine) - Closed Specialty Diagnoses / Procedures Referred By Rose hanna Referred To Contact Obstetrics and Gynecology Diagnoses Amenorrhea examination or test, positive result Procedures ME OFFICE/OUTPATIENT [facility] Luis Eduardo Euceda CNM [address] [place] [address] Phone: tel: fax: Luis Eduardo Euceda CNM [address] [place] [address] Phone: tel: fax: Referral ID Status Reason Start Date Expiration Date V isits Requested Visits Authorized [id number] Closed Specialty Services Required 09/14/2024 03/13/2025 1 1 [facility] Healthcare Summary Purpose Family History No Family History Records FoundNo Family History Records FoundNo Family History Records FoundNo Family History Records FoundNo Family History Records FoundNo Family History Records FoundNo Family History Records Found Advance Directives No Advanced Directives Records FoundDocuments on File Type Date Recorded Patient Cheese Weigher Expl anation ACP-Advance Directive ACP-Power of Bilingual Secretary Latest Code Status on File Code Status Date Activated Date Inactivated Comments Full Code 10/31/2021 1:38 PM Full Code 09/09/2021 4:47 AM 09/09/2021 10:43 AM Documents on File Type Date Recorded Patient Cheese Weigher Expl anation Advance Directives and Living Will Power of Bilingual Secretary Latest Code Status on File Code Status Date Activated Date Inactivated Comments Full Code 01/11/2022 6:53 PM 01/12/2022 7:33 AM Full Code 10/31/2021 1:38 PM 10/31/2021 4:52 PM Latest Code Status on File Code Status Date Activated Date Inactivated Comments Full Code 01/11/2022 6:53 PM 01/12/2022 7:33 AM Code Status History Code Status Date Activated Date Inactivated Comments Full Code 10/31/2021 1:38 PM 10/31/2021 4:52 PM Full Code 09/09/2021 4:47 AM 09/09/2021 10:43 AM Additional Source Comments INFORMATION SOURCE (unrecogn ized section and content) DATE CREATED AUTHOR 03/07/2018 [facility] DATE CREATED AUTHOR AUTHOR'S ORGANIZ ATION 04/23/2020 [facility] DATE CREATED AUTHOR AUTHOR'S ORGANIZ ATION 01/16/2022 [facility] dical Specialist DATE CREATED AUTHOR AUTHOR'S ORGANIZ ATION 06/23/2023 [facility] DATE CREATED AUTHOR AUTHOR'S ORGANIZ ATION 01/29/2025 [facility] DATE CREATED AUTHOR AUTHOR'S ORGANIZ ATION 03/08/2025 [facility] DATE CREATED AUTHOR AUTHOR'S ORGANIZ ATION 03/19/2025 [facility] dical Specialists EPIC Scheduled Active and Recently Administ ered Medications (unrecognized section and content) Medication Order 10/29/2021 10/30/2021 10/31/2021 acetaminophen (TYLENOL) tablet 1,000 mg (COMPLETED) 1,000 mg, Oral, ONCE, On 10/31/21 at 1415, For 1 dose, Maximum dose of acetaminophen is 4000 mg from all sources in 24 hours. 1414 (Given - Provid er: Minda Tyler RN) lactated ringers infusion 500 mL (COMPLETED) 500 mL, IntraVENous, at 1,000 mL/hr, ONCE, On 10/31/21 at 1415, For 1 dose 1415 (New Bag - Prov ider: Minda Tyler RN)1445 (Stopped - Provider: Minda Tyler RN) ondansetron (ZOFRAN) injection 4 mg (COMPLETED) 4 mg, IntraVENous, ONCE, On 10/31/21 at 1415, For 1 dose 1413 (Given - Provid er: Minda Tyler RN) Scheduled Medication Order 01/11/2022 01/12/2022 01/13/2022 benzocaine-menthol (DERMOPLAST) 20-0.5 % spray Topical, 2 TIMES DAILY, First dose on Mon01/12/22 at 0900, Apply to perineal area. Patient is capable and may self administer at bedside., 0759 (Given - Provider: Kelly Rodriguez RN)2100 (Due) 1241 (Not Given - Provider: Kelly Rodriguez RN - Reason: Other - Comment: pt has)2100 (Due) ibuprofen (ADVIL;MOTRIN) tablet 800 mg 800 mg, Oral, EVERY 8 HOURS, First dose on Mon01/12/22 at 0800, Until Discontinued, Once tolerating PO, discontinue Toradol and begin ibuprofen 8 hours after the final dose of Toradol. Alternate ibuprofen and acetaminophen every 4 hours., 0758 (Given - Provider: Kelly Rodriguez RN)1556 (Given - Provider: Kelly Rodriguez RN)2358 (Given - Provider: Genevieve Gamboa RN) 0823 (Given - Provider: Kelly Rodriguez RN)1600 (Due) measles, mumps & rubella vaccine (MMR) injection 0.5 mL 0.5 mL, SubCUTAneous, PRIOR TO DISCHARGE, 1 dose, Starting on Mon01/12/22 at 0733, Until Discontinued, sodium chloride flush 0.9 % injection 5-40 mL 5-40 mL, IntraVENous, EVERY 12 HOURS SCHEDULED (2 times per day), First dose on Mon01/12/22 at 0900, Until Discontinued, For Line Patency: Peripheral IV = 5 mL; Midline or Central Line = 10 mL/lumen. If following IV push medication, administer flush at same rate as the IV push. Flush volume is determined by type of infusion therapy being given. For non-viscous solutions use: Peripheral IV = 5 mL Midline or Central Line = 10 mL/lumen For viscous solutions (i.e. blood components, parenteral nutrition, contrast media, or after obtaining blood sample) use: Peripheral IV = 10 mL Midline or Central Line = 20 mL/lumen, 0900 (Due)2100 (Due) 1241 (Not Given - Provider: Kelly Rodriguez RN - Reason: Loss of IV access)2100 (Due) aneotyk-hrghxp-smnbo pertussis (BOOSTRIX) injection 0.5 mL 0.5 mL, IntraMUSCular, PRIOR TO DISCHARGE, 1 dose, Starting on Mon01/12/22 at 0733, Until Discontinued, If not previously administered during at 27-36 weeks as recommended by CDC., witch shun-glycerin (TUCKS) pad Topical, 2 TIMES DAILY, First dose on Mon01/12/22 at 0900, Apply to perineal area. Patient is capable and may self administer at bedside., 0758 (Given - Provider: Kelly Rodriguez RN)2100 (Due) 124 (Not Given - Provider: Kelly Rodriguez RN - Reason: Other - Comment: pt has)2100 (Due) Continuous Medication Order 01/11/2022 01/12/2022 01/13/2022 lactated ringers infusion (CANCELED) IntraVENous, at 125 mL/hr, CONTINUOUS, Starting on Mon01/11/22 at 1915, Labor and Delivery 2003 (New Bag - Provider: Rosa Washington RN) oxytocin (PITOCIN) 30 units in 500 mL infusion (CANCELED) 1 randi-units/min (1 mL/hr), IntraVENous, CONTINUOUS, Starting on Mon01/11/22 at 1915, Until Mon01/12/22 at 0733, Begin infusion at 1 randi-unit/min (1 randi-unit per min = 1 mL per hour) and increase by 2 randi-units/min as needed, every 30 minutes, until labor is achieved. Labor is defined as contractions every 2-3 minutes with cervical changes or [place] units (MVU) greater than 200 in a 10-minute window. Maximum infusion rate: 24 randi-unit/min. Contact provider if maximum rate does not achieve desired response. Provider may order alternative titration goal or other clinically appropriate goal of titration rate (s). If staff does not increase pitocin at ordered rate, or if pitocin is turned down or off notify provider., Labor and Delivery 2004 (New Bag - Provider: Rosa Washington RN)2033 (New Bag - Provider: Rosa Washington RN)2100 (Rate/Dose Change - Provider: Rosa Washington RN)2130 (Rate/Dose Change - Provider: Rosa Washington RN)2200 (Rate/Dose Change - Provider: Rosa Washington RN)2230 (Rate/Dose Change - Provider: Rosa Washington RN) 0000 (Rate/Dose Change - Provider: Rosa Washington RN) PRN Medication Order 01/11/2022 01/12/2022 01/13/2022 0.9 % sodium chloride infusion IntraVENous, at 5-250 mL/hr, PRN, if patient receiving piggyback infusions and maintenance fluids are not ordered OR KVO fluids to protect IV site / prevent frequent line interruptions/ long duration, Starting on Mon01/12/22 at 0733, For piggyback infusion, administer at same rate as piggyback for a total of 25 mL. Enter 25 mL into dose field and piggyback rate into rate field of order. If piggyback is infusing at a rate less than 100 mL/hr, enter 25 mL into dose field and 100 mL/hr into rate field of order. For KVO fluids, enter rate of 20 mL/hr or less into rate field of order., 1259 (Stopped - Provider: Kelly Rodriguez RN) acetaminophen (TYLENOL) tablet 650 mg 650 mg, Oral, EVERY 4 HOURS PRN, Starting on Mon01/12/22 at 1426, Until Discontinued, Pain Mild (1-3), Maximum dose of acetaminophen is 4000 mg from all sources in 24 hours. 1434 (Given - Provider: Kelly Rodriguez RN) docusate sodium (COLACE) capsule 100 mg 100 mg, Oral, 2 TIMES DAILY PRN, Starting on Mon01/12/22 at 0733, Until Discontinued, Constipation, Do not crush or break., 2222 (Given - Provider: Genevieve Gamboa RN) lansinoh lanolin ointment Topical, PRN, Dry Skin, nipple discomfort, Starting on Mon01/12/22 at 0733, methylergonovine (METHERGINE) injection 200 mcg 200 mcg, IntraMUSCular, PRN, Starting on Mon01/12/22 at 0733, Until Discontinued, Bleeding, PRN for post- hemorrhage, if not hypertensive., miSOPROStol (CYTOTEC) tablet 800 mcg 800 mcg, Rectal, PRN, 1 dose, Starting on Mon01/12/22 at 0733, Until Discontinued, Post- Hemorrhage, Notify Physician prior to administration., nalbuphine (NUBAIN) injection 10 mg (CANCELED) 10 mg, IntraVENous, EVERY 2 HOURS PRN, Starting on Mon01/11/22 at 1851, Until Mon01/12/22 at 0733, Pain Moderate (4-6), Pain Severe (7-10), For moderate pain 4-6, PRN for pain, Labor and Delivery 2313 (Given - Provider: Rosa Washington, CALISTA) 0123 (Given - Provider: Rosa Washington RN) ondansetron (ZOFRAN-ODT) disintegrating tablet 8 mg 8 mg, Oral, EVERY 8 HOURS PRN, Starting on Mon01/12/22 at 0733, Until Discontinued, Nausea, sodium chloride flush 0.9 % injection 5-40 mL 5-40 mL, IntraVENous, PRN, Starting on Mon01/12/22 at 0733, Until Discontinued, Line Care, After every IV line use, For Line Patency: Peripheral IV = 5 mL; Midline or Central Line = 10 mL/lumen. If following IV push medication, administer flush at same rate as the IV push. Flush volume is determined by type of infusion therapy being given. For non-viscous solutions use: Peripheral IV = 5 mL Midline or Central Line = 10 mL/lumen For viscous solutions (i.e. blood components, parenteral nutrition, contrast media, or after obtaining blood sample) use: Peripheral IV = 10 mL Midline or Central Line = 20 mL/lumen, Scheduled Medication Order 01/15/2022 01/16/2022 01/17/2022 0.9 % sodium chloride IV bolus 1,854 mL (COMPLETED) 1,854 mL (30 mL/kg 61.8 kg Adjusted weight), IntraVENous, at 3,708 mL/hr, Administer over 30 Minutes, ONCE, On Mon01/17/22 at 1900, For 1 dose, In accordance with Surviving Sepsis Campaign, infuse 30 mL/kg fluid challenge as rapidly as possible without overloading patient (target 30 to 60 minutes). If calculated rate exceeds 999 mL/hr, may administer wide open or using other rapid infusion mechanism. 1900 (Due)1932 (New Bag - Provider: Bibiana Gan RN)2035 (Stopped - Provider: Bibiana Gan RN) acetaminophen (TYLENOL) tablet 650 mg (COMPLETED) 650 mg, Oral, ONCE, 1 dose, On Mon01/17/22 at 1930, Maximum dose of acetaminophen is 4000 mg from all sources in 24 hours. 1931 (Given - Provid er: Bibiana Gan RN) cefTRIAXone (ROCEPHIN) 1000 mg IVPB in 50 mL D5W minibag (COMPLETED) 1,000 mg, IntraVENous, ONCE, 1 dose, On Mon01/17/22 at 1930, Antimicrobial Indications: Urinary Tract Infection 1931 (New Bag - Prov ider: Bibiana Gan RN)2035 (Stopped - Provider: Bibiana Gan RN) PRN Medication Order 01/15/2022 01/16/2022 01/17/2022 iopamidol (ISOVUE-370) 76 % injection 75 mL (COMPLETED) 75 mL, IntraVENous, IMG ONCE PRN, 1 dose, Starting on Mon01/17/22 at 1913, Until Mon01/17/22 at 1920, Other 1920 (Given - Provid er: Ion Acevedo) Scheduled Medication Order 02/17/2023 02/18/2023 02/19/2023 cephALEXin (KEFLEX) capsule 500 mg (COMPLETED) 500 mg, Oral, ONCE, 1 dose, On 02/19/23 at 0445, Antimicrobial Indications: Urinary Tract Infection 0439 (Given - Provid er: Caity Cid RN) Care Teams (unrecognized sec tion and content) Collator Hand Relationship Specialty Start Date End Date Miki Penaloza [address] [place] [id number] PCP - General 03/24/14 Collator Hand Relationship Specialty Start Date End Date Miki Penaloza [address] [place] [id number] PCP - General 03/24/14 Collator Hand Relationship Specialty Start Date End Date Miki Penaloza [address] [place] [id number] PCP - General 03/24/14 Collator Hand Relationship Specialty Start Date End Date Audrey Blevins DO [address] [place] [address] PCP - General 02/19/23 Collator Hand Relationship Specialty Start Date End Date Amanda Urrutia MD [address] [facility] [place] [address] PCP - General Family Medicine 04/10/24 Lillie Barry NP [address] [facility] [address] Nurse Practitioner Family Medicine 04/10/24 Collator Hand Relationship Specialty Start Date End Date Amanda Urrutia MD [address] [facility] [address] PCP - General Family Medicine 04/10/24 Lillie Barry NP [address] [facility] [address] Nurse Practitioner Family Medicine 04/10/24 Collator Hand Relationship Specialty Start Date End Date Amanda Urrutia MD [address] [facility] [place] [address] PCP - General Family Medicine 04/10/24 Lillie Barry NP [address] [facility] [place] [address] Nurse Practitioner Family Medicine 04/10/24 Collator Hand Relationship Specialty Start Date End Date Amanda Urrutia MD [address] [facility] [place] [address] PCP - General Family Medicine 04/10/24 Lillie Barry NP [address] [place] [address] Nurse Practitioner Family Medicine 04/10/24 Collator Hand Relationship Specialty Start Date End Date Amanda Urrutia MD [address] [place] [address] PCP - General Family Medicine 04/10/24 Lillie Barry NP [address] [place] [address] Nurse Practitioner Family Medicine 04/10/24 Collator Hand Relationship Specialty Start Date End Date Amanda Urrutia MD [address] [place] [address] PCP - General Family Medicine 04/10/24 Lillie Barry NP [address] [place] [address] Nurse Practitioner Family Medicine 04/10/24 Collator Hand Relationship Specialty Start Date End Date Amanda Urrutia MD [address] [place] [address] PCP - General Family Medicine 04/10/24 Lillie Barry NP [address] [place] [address] Nurse Practitioner Family Medicine 04/10/24 Collator Hand Relationship Specialty Start Date End Date Amanda Urrutia MD [address] [place] [address] PCP - General Family Medicine 04/10/24 Lillie Barry NP [address] [place] [address] Nurse Practitioner Family Medicine 04/10/24 Collator Hand Relationship Specialty Start Date End Date Amanda Urrutia MD [address] [place] [address] PCP - General Family Medicine 04/10/24 Lillie Barry NP [address] [place] [address] Nurse Practitioner Family Medicine 04/10/24 Collator Hand Relationship Specialty Start Date End Date Amanda Urrutia MD [address] [place] [address] PCP - General Family Medicine 04/10/24 Lillie Barry NP [address] [place] [address] Nurse Practitioner Family Medicine 04/10/24 Collator Hand Relationship Specialty Start Date End Date Amanda Urrutia MD [address] [place] [address] PCP - General Family Medicine 04/10/24 Lillie Barry NP [address] [place] [address] Nurse Practitioner Family Medicine 04/10/24 Reason for Visit (unrecogniz ed section and content) Status Reason Specialty Diagnoses / Procedures Referre d By Contact Referred To Contact Diagnoses Complete tear of anterior cruciate ligament of right knee Acute medial meniscus tear, right, initial encounter Acute tear lateral meniscus, right, initial encounter RIGHT KNEE ACL TEAR, MEDIAL AND LATERAL MENISCUS TEAR Procedures ME KNEE SCOPE,AID ANT CRUCIATE REPAIR ME REMOVAL DEEP IMPLANT ME TREAT TIBIAL SHAFT FX, INTRAMED IMPLANT ME KNEE SCOPE,MED+LAT MENIS REPAIR KNEE ACL REPAIR ARTHROSCOPIC-WITH ALLOGRAFT, REMOVAL OF DEEP IMPLANTS, POSSIBLE BONE GRAFT, POSSIBLE MENISCAL REPAIRS Sharee Guzman MD [address] [place] [address] [facility] Reason Comments Rupture of Membranes Specialty Diagnoses / Procedures Referred By Contac t Referred To Contact Diagnoses Normal labor Luis Eduardo Euceda, STORAGE AND BACKUP ADMINISTRATOR - CNM [address] [place] [address] [facility] [address] [place] [address] Referral ID Status Reason Start Date Expiration Date Visits Re quested Visits Authorized Reason Comments Fever 5 days post vaginal delivery, lower abdominal pain and pain in neck, cough Reason Comments Urinary Tract Infection Hematuria Reason Comments Follow-up Reason Comments Initial Visit Reason Comments FGR Reason Comments New Patient BI LEAD REFERAL LUIS EDUARDO JEAN-BAPTISTE PALPS AND HISTORY OF CARDIAC MURMUR, NO RECENT CARDIAC TESTING DONE, SCHED EW/PT Ordered Prescriptions (unrec ognized section and content) Prescription Sig Dispensed Refills Start Date End Da te docusate sodium (COLACE) 100 MG capsule Take 1 capsule by mouth 2 times daily as needed for Constipation 60 capsule 0 01/13/2022 ibuprofen (ADVIL;MOTRIN) 800 MG tablet Take 1 tablet by mouth every 8 hours 60 tablet 0 01/13/2022 Prescription Sig Dispensed Refills Start Date End Da te cefdinir (OMNICEF) 300 MG capsule Take 1 capsule by mouth 2 times daily for 7 days 14 capsule 0 01/17/2022 01/24/2022 Prescription Sig Dispensed Refills Start Date End Da te cephALEXin (KEFLEX) 500 MG capsule Take 1 capsule by mouth 2 times daily for 5 days 10 capsule 0 02/19/2023 02/24/2023 phenazopyridine (PYRIDIUM) 97.2 MG tablet Take 1 tablet by mouth 3 times daily as needed for Pain 10 tablet 0 02/19/2023 02/22/2023 cephALEXin (KEFLEX) 500 MG capsule Take 1 capsule by mouth 2 times daily for 5 days 10 capsule 0 02/19/2023 02/19/2023 FOR RECORDS PERTAINING TO PATIENTS WHO ARE OR HAVE BEEN ENROLLED IN A CHEMICAL DEPENDENCY/SUBSTANCEABUSE PROGRAM, SOME INFORMATION MAY BE OMITTED. This clinical summary was aggregated from multiple sources. Caution should be exercised in using it in the provision of clinical care. This summary normalizes information from multiple sources, and as a consequence, information in this document may materially change the coding, format and clinical context of patient data. In addition, data may be omitted in some cases. CLINICAL DECISIONS SHOULD BE BASED ON THE PRIMARY CLINICAL RECORDS. [facility], [facility]. provides no warranty or guarantee of the accuracy or completeness of information in this document.
--- OUTSIDE RECORDS SUMMARY | 2025-03-20 05:05 | XMS_ITS | Encounter Summary ---
Author Organization [facility] Address [address] [place] [address] Care Team Providers Care Knife Edger Name Role Phone Lillie Barry NP Unavailable [phone] Amanda Urrutia MD Primary Care Provider [phone] Encounter Details Date Type Department Care Team (Late st Contact Info) Description 11/01/2024 Orders Only [facility] [address] [place] [address] Unallocated, [facility] Provider, [address] [place] [address] Social History Tobacco Use Types Packs/Day Years [...] on file documented as of this encounter Plan of Treatment Upcoming Encounters Date Type Department Care Team (Late st Contact Info) Description 04/02/2025 11:30 AM EDT Telemedicine [facility] [address] [place] [address] Krista Euceda CNM [address] [place] [address] documented as of this encounter Procedures Procedure Name Priority Date/Time Associated Diagnosis Comments US OB TRANSVAGINAL Routine 11/01/2024 12:43 PM EST documented in this encounter Results * US OB transvaginal (11/01/2024 12:43 PM EST) Anatomical Region Laterality Modality Body Ultrasound us [facility] Provider Unallocated MD DREW OB US PROCEDURE S Final Result documented in this encounter Visit Diagnoses Not on filedocumented in this encounter Care Teams Knife Edger Relationship Specialty Start Date End Date Amanda Urrutia MD [address] [place], [place] [id number] PCP - General Family Medicine 04/10/24 Lillie Barry NP [address] [place], [place] [id number] Nurse Practitioner Family Medicine 04/10/24 documented as of this encounter
--- OUTSIDE RECORDS SUMMARY | 2025-03-20 05:06 | XMS_ITS | Encounter Summary ---
Author Organization [facility] Address [address] [place] [address] Care Team Providers Care Flame Annealing Machine Setter Name Role Phone Lillie Barry NP Unavailable [phone] Amanda Urrutia MD Primary Care Provider [phone] Encounter Details Date Type Department Care Team (Late st Contact Info) Description 01/07/2025 Results Follow-Up [facility] [address] [place] [address] Krista Euceda CNM [address] [place], [place] [id number] Social History Tobacco Use Types Packs/Day Years [...] AM EDT Telemedicine [facility] [address] [place] [address] Krista Euceda CNM [address] [place] [address] documented as of this encounter Visit Diagnoses Not on filedocumented in this encounter Care Teams Flame Annealing Machine Setter Relationship Specialty Start Date End Date Amanda Urrutia MD [address] [place] [address] PCP - General Family Medicine 04/10/24 Lillie Barry NP [address] [facility] [place] [address] Nurse Practitioner Family Medicine 04/10/24 documented as of this encounter
--- OUTSIDE RECORDS SUMMARY | 2025-03-20 05:06 | XMS_ITS | Encounter Summary ---
Author Organization [facility] Address [address] [place] [address] Care Team Providers Care Breaker Table Worker Name Role Phone Lillie Barry NP Unavailable [phone] Amanda Urrutai MD Primary Care Provider [phone] Encounter Details Date Type Department Care Team (Late st Contact Info) Description 12/27/2024 External Result Encounter [facility] [address] [place] [address] Luis Eduardo Euceda CNM [address] [place], [place] [id number] Social History Tobacco Use Types Packs/Day Years [...] AM EDT Telemedicine [facility] [address] [place] [address] Luis Eduardo Euceda CNM [address] [place] [address] documented as of this encounter Procedures Procedure Name Priority Date/Time Associated Diagnosis Comments US OB 14+ WEEKS ANATOMY SCAN 12/27/2024 1:43 PM EDT documented in this encounter Results * US OB 14+ weeks anatomy scan (12/27/2024 1:43 PM EDT) Anatomical Region Laterality Modality Body Ultrasound 12/27/2024 1:43 PM EDT Narrative 12/27/2024 1:43 PM EDT THIS EXAM WAS PERFORMED AT [facility] NAME: JORDI MARTINEZ : 2000 SEX: F Accession Number: [id number] ORDERING PHYSICIAN: TIARA SHETH REFERRING PHYSICIAN: LUIS EDUARDO EUCEDA Coding ----- --------- Procedures 44150: Ultrasound, uterus, real time with image documentation, and maternal evaluation plus detailed anatomic examination, transabdominal approach;single or first gestation Indication ----- --------- Screening for Anatomic Survey , Screening for IUGR History ----- --------- OB History 3. Para 1 [id number] Maternal Assessment ----- --------- Physical Exam Height 157 cm, 5 ft 2 in. Weight 70 kg, 155 lb. BMI 28.35 kg/m??? Method ----- --------- Transabdominal ultrasound examination. View: Suboptimal view: limited by position ----- --------- Blood . Number of fetuses: 1 Dating ----- --------- LMP on: 06/12/2024 GA by LMP 28 w + 2 d SONIA by LMP: 03/19/2025 Previous Ultrasound on: 08/12/2024 Type of prior assessment: GA GA at prior assessment date 8 w + 5 d GA by previous U/S 28 w + 2 d SONIA by previous Ultrasound: 03/19/2025 Ultrasound examination on: 12/27/2024 GA by U/S based upon: AC, BPD, Femur, HC GA by U/S 27 w + 2 d SONIA by U/S: 03/26/2025 Assigned: based on the LMP, selected on 12/27/2024 Assigned GA 28 w + 2 d Assigned SONIA: 03/19/2025 General Evaluation ----- --------- Cardiac activity Present. FHR 133 bpm. Presentation: sohan breech Placenta: Placental site: anterior, away from cervical os Umbilical cord: Cord vessels: 3 vessel cord. Insertion site: normal insertion Amniotic fluid: Amount of AF: normal amount. MVP 4.8 cm Biometry ----- --------- BPD 66.0 mm 26w 4d 4% Hadlock OFD 91.9 mm 29w 4d 83% Prashanth HC 253.7 mm 27w 4d 7% Hadlock Cerebellum tr 31.2 mm 26w 6d 15% Hill AC 228.4 mm 27w 2d 15% Hadlock Femur 51.2 mm 27w 3d 14% Hadlock Humerus 46.0 mm 27w 1d 15% Prashanth HC / AC 1.11 Weight Calculation: EFW 1,052 g 11% Hadlock EFW (lb,oz) 2 lb 5 oz EFW by Hadlock ([id number]) Head / Face / Neck Biometry: Cephalic index 0.72 2% Nicojonahides Montessori Toddler Teacher 1.9 mm CM 6.0 mm 29% Nicolaides Extremities / Bony Struc Biometry: FL / BPD 0.78 FL / HC 0.20 FL / AC 0.22 Tibia 44.2 mm 27w 2d 16% Prashanth Anatomy ----- --------- The following structures appear normal: Head/Neck: Cranium. Lateral ventricles. Choroid plexus. Midline falx. Cavum septi pellucidi. Cerebellum. Cisterna magna. Parenchyma. Vermis. Neck. Face: Lips. Profile. Nose. Nasal bone. Maxilla. Mandible. Orbits. Heart/Thorax: 4-chamber view. RVOT view. LVOT view. 3-vessel view. 1-arniun-iuairsy view. Situs. Aortic arch view. Bicaval view. Ductal arch view. Interventricular septum. Great vessels. Cardiac position. Cardiac axis. Cardiac size. Cardiac rhythm. Right lung. Left lung. Diaphragm. Abdomen: Abdom. wall. Cord insertion. Stomach. Kidneys. Bladder. Small bowel. Large bowel. Right renal artery. Left renal artery. Spine: Cervical spine. Extremities/Skeleton: Right upper arm. Right forearm. Right hand. Left upper arm. Left forearm. Left hand. Right upper leg. Right lower leg. Right foot. Left upper leg. Left lower leg. Left foot. The following structures could not be adequately visualized: Spine Thoracic spine. Lumbar spine. The following structures could not be examined: Abdomen Genitals. Spine Sacral spine. Maternal Structures ----- --------- Uterus Visualized Cervix Visualized Approach - Transabdominal Right Ovary Visualized Size 31 mm x 25 mm x 17 mm. Vol 7.0 cm??? Left Ovary Not visualized Cul de Sac Visualized. No free fluid visualized Impression ----- --------- Single viable intrauterine consistent with 28w 2d with an SONIA of 03/19/2025. EFW measuring at the 11%. AC measures at the 15%. Amniotic fluid MVP measures 4.8 cm. Recommendations ----- --------- Please see M documentation from today. The patient is scheduled in four to six week(s) to complete anatomic survey. Subsequent follow up or other follow up as clinically determined by primary OB provider unless otherwise specified by [facility]. Results forwarded to ordering provider so they can follow up with the patient as necessary. The copy-to physician of this order is LUIS EDUARDO Roberto The ordering physician of this order is TIARA Rico Procedure Note Radiology, Radiologist, - 12/27/2024 THIS EXAM WAS PERFORMED AT [facility] NAME: JUANJORDI MADDEN : 2000 SEX: F Accession Number: [id number] ORDERING PHYSICIAN: TIARA SHETH REFERRING PHYSICIAN: LUIS EDUARDO EUCEDA Coding ----- --------- Procedures 38277: Ultrasound, uterus, real time with imagedocumentation, and maternal evaluation plus detailed anatomic examination, transabdominalapproach;single or first gestation Indication ----- --------- Screening for Anatomic Survey , Screening for IUGR History ----- --------- OB History 3. Para 1 [id number] Maternal Assessment ----- --------- Physical Exam Height 157 cm, 5 ft 2 in. Weight 70 kg, 155 lb. BMI 28.35kg/m??? Method ----- --------- Transabdominal ultrasound examination. View: Suboptimal view: limited byfetal position ----- --------- Blood . Number of fetuses: 1 Dating ----- --------- LMP on: 06/12/2024 GA by LMP 28 w + 2 d SONIA by LMP: 03/19/2025 Previous Ultrasound on: 08/12/2024 Type of prior assessment: GA GA at prior assessment date 8 w + 5 d GA by previous U/S 28 w + 2 d SONIA by previous Ultrasound: 03/19/2025 Ultrasound examination on: 12/27/2024 GA by U/S based upon: AC, BPD, Femur, HC GA by U/S 27 w + 2 d SONIA by U/S: 03/26/2025 Assigned: based on the LMP, selected on 12/27/2024 Assigned GA 28 w + 2 d Assigned SONIA: 03/19/2025 General Evaluation ----- --------- Cardiac activity Present. FHR 133 bpm. Presentation: sohan breech Placenta: Placental site: anterior, away from cervical os Umbilical cord: Cord vessels: 3 vessel cord. Insertion site: normalinsertion Amniotic fluid: Amount of AF: normal amount. MVP 4.8 cm Biometry ----- --------- BPD 66.0 mm 26w 4d 4% Hadlock OFD 91.9 mm 29w 4d 83% Prashanth HC 253.7 mm 27w 4d 7% Hadlock Cerebellum tr 31.2 mm 26w 6d 15% Hill AC 228.4 mm 27w 2d 15% Hadlock Femur 51.2 mm 27w 3d 14% Hadlock Humerus 46.0 mm 27w 1d 15% Prashanth HC / AC 1.11 Weight Calculation: EFW 1,052 g 11% Hadlock EFW (lb,oz) 2 lb 5 oz EFW by Hadlock ([id number]) Head / Face / Neck Biometry: Cephalic index 0.72 2% Nicolaides Montessori Toddler Teacher 1.9 mm CM 6.0 mm 29% Nicolaides Extremities / Bony Struc Biometry: FL / BPD 0.78 FL / HC 0.20 FL / AC 0.22 Tibia 44.2 mm 27w 2d 16% Prashanth Anatomy ----- --------- The following structures appear normal: Head/Neck: Cranium. Lateral ventricles. Choroid plexus. Midline falx.Cavum septi pellucidi. Cerebellum. Cisterna magna. Parenchyma. Vermis. Neck. Face: Lips. Profile. Nose. Nasal bone. Maxilla. Mandible. Orbits. Heart/Thorax: 4-chamber view. RVOT view. LVOT view. 3-vessel view.8-vcrxjs-scgxlvs view. Situs. Aortic arch view. Bicaval view. Ductal arch view. Interventricular septum. Greatvessels. Cardiac position. Cardiac axis. Cardiac size. Cardiac rhythm. Right lung. Left lung. Diaphragm. Abdomen: Abdom. wall. Cord insertion. Stomach. Kidneys. Bladder. Smallbowel. Large bowel. Right renal artery. Left renal artery. Spine: Cervical spine. Extremities/Skeleton: Right upper arm. Right forearm. Right hand. Leftupper arm. Left forearm. Left hand. Right upper leg. Right lower leg. Right foot. Left upper leg. Left lower leg. Leftfoot. The following structures could not be adequately visualized: Spine Thoracic spine. Lumbar spine. The following structures could not be examined: Abdomen Genitals. Spine Sacral spine. Maternal Structures ----- --------- Uterus Visualized Cervix Visualized Approach - Transabdominal Right Ovary Visualized Size 31 mm x 25 mm x 17 mm. Vol 7.0 cm??? Left Ovary Not visualized Cul de Sac Visualized. No free fluid visualized Impression ----- --------- Single viable intrauterine consistent with 28w 2d with an SONIA of03/19/2025. EFW measuring at the 11%. AC measures at the 15%. Amniotic fluid MVP measures 4.8 cm. Recommendations ----- --------- Please see MFM documentation from today. The patient is scheduled in four to six week(s) to complete anatomicsurvey. Subsequent follow up or other follow up as clinically determined byprimary OB provider unless otherwise specified by [facility]. Results forwarded to ordering provider so they can follow up with thepatient as necessary. The copy-to physician of this order is LUIS EDUARDO Roberto The ordering physician of this order is TIARA Rico us Luis Eduardo Euceda [facility] IM OB US PROCEDURES Final R esult documented in this encounter Visit Diagnoses Not on filedocumented in this encounter Care Teams Breaker Table Worker Relationship Specialty Start Date End Date Amanda Urrutia MD [address] [facility] [place] [address] PCP - General Family Medicine 04/10/24 Lillie Barry NP [address] [place] [address] Nurse Practitioner Family Medicine 04/10/24 documented as of this encounter
--- OUTSIDE RECORDS SUMMARY | 2025-03-20 05:06 | XMS_ITS | Clinical Summary ---
Author Organization [facility] Healthcare Address [address] [place] [address] Care Team Providers Care Field Geologist Name Role Phone Lillie Barry NP Unavailable [phone] Amanda Urrutia MD Primary Care Provider [phone] Allergies No known active allergies Medications MV & Min w/FA-DHA ( Gummies) 0.18-25 MG chewable tablet Chew A ctive Active Problems Problem Noted Date Diagnosed Date Exercise-induced bronchospasm 04/12/2024 Generalized anxiety disorder 04/12/2024 Heart murmur 04/12/2024 Lumbar radiculopathy 04/12/2024 Neurocardiogenic syncope 04/12/2024 Estimated Date of Delivery Comme nts Yes 03/19/2025 Based on last me nstrual period of 06/12/2024 (Exact Date) Encounters Date Type Department Care Team Description 03/18/2025 9:30 AM EDT Routine [facility] [address] [place] [address] Luis Eduardo Euceda CNM Encounter for supervision of other normal , third trimester ([facility]) (Primary Dx); History of cardiac murmur 03/18/2025 Bamboo flowsheet [facility] [address] [place] [address] Luis Eduardo Euceda CNM 03/12/2025 9:30 AM EDT Routine [facility] [address] [place] [address] Luis Eduardo Euceda CNM Encounter for supervision of other normal , third trimester ([facility]) (Primary Dx) 03/12/2025 Bamboo flowsheet [facility] [address] [facility] [place] [address] Luis Eduardo [place] 03/05/2025 2:00 PM EDT Routine [facility] [address] [facility] [place] [address] Luis Eduardo Euceda CNM Encounter for supervision of other normal , third trimester ([facility]) (Primary Dx) 03/05/2025 Bamboo flowsheet [facility] [address] [facility] [place] [address] Luis Eduardo [place]uced[place], [place] 02/26/2025 10:30 AM EDT Routine [facility] [address] [facility] [place] [address] Luis Eduardo Euceda CNM Encounter for supervision of other normal , third trimester ([facility]) (Primary Dx) 02/19/2025 9:30 AM EDT Routine [facility] [address] [facility] [place] [address] Luis Eduardo Euceda CNM Encounter for supervision of other normal , third trimester ([facility]) (Primary Dx); screening for streptococcus B ([facility]) 02/19/2025 Bamboo flowsheet [facility] [address] [facility] [place] [address] Luis Eduardo [place], [place] 02/12/2025 9:30 AM EDT Routine [facility] [address] [facility] [place] [address] Luis Eduardo Euceda CNM Encounter for supervision of other normal , third trimester ([facility]) (Primary Dx); History of cardiac murmur 02/12/2025 Bamboo flowsheet [facility] [address] [facility] [place] [address] Luis Eduardo Euceda, CNAllie 01/29/2025 9:15 AM EDT Routine [facility] [address] [facility] [place] [address] Luis Eduardo Euceda, CNM Encounter for supervision of other normal , third trimester ([facility]) (Primary Dx) 01/29/2025 Bamboo flowsheet [facility] [address] [facility] [place] [address] Luis Eduardo Euceda, CNM 01/15/2025 10:00 AM EDT Routine [facility] [address] [facility] [place] [address] Luis Eduardo Euceda, TOMM Encounter for supervision of other normal , third trimester ([facility]) (Primary Dx) 01/15/2025 Bamboo flowsheet [facility] [address] [facility] [place] [address] Luis Eduardo Euceda, CNM 01/07/2025 Results Follow-Up [facility] [address] [facility] [place] [address] Luis Eduardo Euceda, CNM 01/07/2025 Results Follow-Up [facility] [address] [facility] [place] [address] Luis Eduardo Euceda, CNM 12/31/2024 Results Follow-Up [facility] [address] [facility] [place] [address] Amanda Anaya MA 12/31/2024 Orders Only [facility] [address] [facility] [place] [address] Luis Eduardo Euceda, CNM Elevated glucose tolerance test 12/27/2024 External Result Encounter [facility] [address] [facility] [place] [address] Luis Eduardo Euceda, CNM 12/23/2024 9:00 AM EDT Ancillary Procedure [facility] ULTRASOUND [address] [place] [phone] related condition in third trimester ([facility]) 12/23/2024 Travel from Last 3 Months Immunizations Immunization Administration Dates Next Due DTaP 05/05/2014, 7,05/16/2003,08/22 DTaP, Unspecified 2002,2002 HPV 9-Valent 05/13/2019,03/13/2019 HPV, Bivalent 09/23/2019 Hep A, ped/adol, 2 dose 09/23/2019,03/13/2019 Hep B, Adolescent or Pediatric 05/16/2003,2001,2002 Hep B, adult 10/06/2023,05/04/2023,03/28/2023 HiB, unspecified 2002 Hib (HbOC) 2002 Hib (PRP-T) 2002 Hib / Hep B 05/16/2003,2002 IPV 12/21/2006, 2,2002,04/19 Influenza, injectable, MDCK, preservative free, quadrivalent 07/14/2023 MMR 03/28/2023,12/21/2006,02/24/2003 Meningococcal MCV4O 03/13/2019 PPD Test 04/22/2024, 4,03/17/2023,03/10 Tdap 03/10/2023,10/19/2021,05/05/2014 Varicella 03/28/2023,03/13/2019,02/24/2003 Family History Medical History Relation Name Comments No Known Problems Daughter Cirrhosis Father Alcoholic Hypertension Father Hypertension Maternal Grandfather Prostate cancer Maternal Grandfather Diabetes Maternal Grandmother Hypertension Maternal Grandmother Obesity Mother Diabetes Mother's Sister Hypertension Mother's Sister Nephrolithiasis Other grandparent Relation Name Status Comments Daughter Alive Father Maternal Grandfather Maternal Grandmother Mother Alive Mother's Sister Other grandparent Sister 1 Social History Tobacco Use Types Packs/Day Years Used Date Smoking Tobacco: Never Smokeless Tobacco: Never Tobacco Cessation:Counseling Given: Not Answered Alcohol Use Standard Drinks/Week Comments Not Currently [...] on file Sexual Orientation Not on file Last Filed Vital Signs Vital Sign Reading Time Taken Comments Blood Pressure 118/80 03/18/2025 9:27 AM EDT Pulse 86 05/06/2024 10:39 AM EDT Temperature - - Respiratory Rate - - Oxygen Saturation 98% 05/06/2024 10:39 AM EDT Inhaled Oxygen Concentration - - Weight 78.9 kg (174 lb) 03/18/2025 9:27 AM EDT Height 157.5 cm (5' 2 ) 05/06/2024 10:39 AM EDT Body Mass Index 31.83 05/06/2024 10:39 AM EDT Plan of Treatment Upcoming Encounters Date Type Department Care Team (Late st Contact Info) Description 04/02/2025 11:30 AM EDT Telemedicine [facility] [address] [place] [address] Lius Eduardo Euceda, CNM [address] [place], [place] [phone] Health Maintenance Due Date Last Done Comments Influenza Vaccine (#1) 2025 07/17/2024, 2022 Procedures Procedure Name Priority Date/Time Associated Diagnosis Comments STREPTOCCOUS, GROUP B CULTURE Routine 02/19/2025 11:44 AM EDT screening for streptococcus B ([facility]) GLUCOSE TOLERANCE TEST, GESTATIONAL,4SPEC(100G ) Routine 01/03/2025 8:06 AM EDT Elevated glucose tolerance test CBC Routine 12/30/2024 9:11 AM EDT Screening for iron deficiency anemia GLUCOSE, GESTATIONAL SCREEN (50G)-135 CUTOFF Routine 12/30/2024 9:11 AM EDT Screening for diabetes mellitus (DM) US OB 14+ WEEKS ANATOMY SCAN 12/27/2024 1:43 PM EDT US OB FOLLOW UP TRANSABDOMINAL APPROACH Routine 12/23/2024 9:34 AM EDT related condition in third trimester ([facility]) from Last 3 Months Results * STREPTOCCOUS, GROUP B CULTURE (02/19/2025 11:44 AM EDT) MICRO NUMBER [id number] [facility] SPECIMEN QUALITY Adequate [facility] SOURCE VAGINAL/ANOR ECTAL [facility] STATUS FINAL [facility] RESULT SEE NOTE [facility] Comment: No group B Streptococcus isolated COMMENT SEE NOTE [facility] Comment: Note per CDC guidelines optimal recovery is achieved by swabbing both the lower vagina and rectum (through the anal sphincter). 02/19/2025 11:4 4 AM EDT 02/19/2025 11:45 AM EDT Narrative Resulting Agency Comment Performing Organization Information Site ID: QPT Name: [facility] Address: [address] [place] [address], [address] [place] [phone] Director: Melvin Flood MD Luis Eduardo [facility] LAB BODY FLUIDS AND STOOLS O RDERABLES Final Result [facility] * GLUCOSE TOLERANCE TEST, GESTATIONAL,4SPEC(100G) (01/03/2025 8:06 AM EDT) GLUCOSE, FASTING 80 65 - 94 mg/dL [facility] GLUCOSE, 1 HOUR 140 <180 mg/dL [facility] GLUCOSE, 2 HOUR 98 <155 mg/dL [facility] GLUCOSE, 3 HOUR 80 <140 mg/dL [facility] COMMENT [facility] Comment: Contreras/Coustan Criteria: Two or more values greater than the above reference intervals are suggestive of gestational diabetes. 01/03/2025 8:06 AM EDT 01/03/2025 8:07 AM EDT Narrative Resulting Agency Comment Performing Organization Information Site ID: QPT Name: [facility] Address: [address] [place] [address], [address] [place] [phone] Director: Melvin Flood MD Luis Eduardo Nimco [facility] CN LAB BLOOD ORDERABLES Final R esult Performing Organization Address City/[facility] Co de Phone Number [facility] * (ABNORMAL) GLUCOSE, GESTATIONAL SCREEN (50G)-135 CUTOFF (12/30/2024 9:11 AM EDT) [facility] GLUCOSE, GESTATIONAL SCREEN (50G)-135 CUTOFF 164(H) <135 mg/dL [facility] Comment: One hour value of > or = 135 mg/dL indicates the need for a diagnostic 75 g dose 2-hour or 100 g dose 3-hour oral glucose tolerance test; patient fasting is required. 12/30/2024 9:11 AM EDT 12/30/2024 2:55 PM EDT Narrative Resulting Agency Comment Performing Organization Information Site ID: QTW Name: [facility] Address: [address] [place] [phone] Director: Hanna Maynard Luis Eduardo Nimco [facility] LAB BLOOD ORDERABLES Final R esult Performing Organization Address [facility] Co de Phone Number [facility] * CBC (12/30/2024 9:11 AM EDT) [facility] WHITE BLOOD CELL COUNT 8.0 3.8 - 10.8 Thousand/u L [facility] RED BLOOD CELL COUNT 4.29 3.80 - 5.10 Million/uL [facility] HEMOGLOBIN 13.1 11.7 - 15.5 g/dL [facility] HEMATOCRIT 39.5 35.0 - 45.0 % [facility] MCV 92.1 80.0 - 100.0 fL [facility] MCH 30.5 27.0 - 33.0 pg [facility] MCHC 33.2 32.0 - 36.0 g/dL [facility] Comment: For adults, a slight decrease in the calculated MCHC value (in the range of 30 to 32 g/dL) is most likely not clinically significant; however, it should be interpreted with caution in correlation with other red cell parameters and the patient's clinical condition. RDW 12.7 11.0 - 15.0 % [facility] PLATELET COUNT 190 140 - 400 Thousand/u L [facility] MPV 10.8 7.5 - 12.5 fL [facility] Blood Venous blood specimen / Unknown 12/30/2024 9:11 AM EDT 12/30/2024 2:55 PM EDT Narrative Resulting Agency Comment Performing Organization Information Site ID: QTW Name: [facility] Address: [address] [place] [phone] Director: Hanna Maynard us Luis Eduardo Euceda [facility] LAB BLOOD ORDERABLES Final R esult [facility] * US OB 14+ weeks anatomy scan (12/27/2024 1:43 PM EDT) Anatomical Region Laterality Modality Body Ultrasound 12/27/2024 1:43 PM EDT Narrative 12/27/2024 1:43 PM EDT THIS EXAM WAS PERFORMED AT [facility] NAME: JOSUE MARTINEZ : 2000 SEX: F Accession Number: [id number] ORDERING PHYSICIAN: TIARA SHETH REFERRING PHYSICIAN: LUIS EDUARDO EUCEDA Coding ----- --------- Procedures [id number]: Ultrasound, uterus, real time with image documentation, and maternal evaluation plus detailed anatomic examination, transabdominal approach;single or first gestation Indication ----- --------- Screening for Anatomic Survey , Screening for IUGR History ----- --------- OB History 3. Para 1 [id number] Maternal Assessment ----- --------- Physical Exam Height [...] Cerebellum tr 31.2 mm 26w 6d 15% [place] AC 228.4 mm 27w 2d 15% Hadlock Femur 51.2 mm 27w 3d 14% Hadlock Humerus 46.0 mm 27w 1d 15% Prashanth HC / AC 1.11 Weight Calculation: EFW 1,052 g 11% Hadlock EFW (lb,oz) 2 lb 5 oz EFW by Hadlock ([id number]) Head / Face / Neck Biometry: Cephalic index 0.72 2% Nicolaides [employer] 1.9 mm CM 6.0 mm 29% Nicolaides [...] view. RVOT view. LVOT view. 3-vessel view. 5-irxcbb-oxupuai view. Situs. Aortic arch view. Bicaval view. [...] 4.8 cm. Recommendations ----- --------- Please see [facility] documentation from today. The patient is scheduled in four to six week(s) to complete anatomic survey. Subsequent follow up or other follow up as clinically determined by primary OB provider unless otherwise specified by M. Results forwarded to ordering provider so they can follow up with the patient as necessary. The copy-to physician of this order is LUIS EDUARDO Roberto The ordering physician of this order is TIARA Rico Procedure Note Radiology, Radiologist, - 12/27/2024 THIS EXAM WAS PERFORMED AT [facility] NAME: JOSUE MARTINEZ : 2000 SEX: F Accession Number: [id number] ORDERING PHYSICIAN: TIARA SHETH REFERRING PHYSICIAN: LUIS EDUARDO EUCEDA Coding ----- --------- Procedures [id number]: Ultrasound, uterus, real time with imagedocumentation, and maternal evaluation plus detailed anatomic examination, transabdominalapproach;single or first gestation Indication ----- --------- Screening for Anatomic Survey , Screening for IUGR History ----- --------- OB History 3. Para 1 [id number] Maternal Assessment ----- --------- Physical Exam Height [...] 2 lb 5 oz EFW by Hadlock ([id number]) Head / Face / Neck Biometry: Cephalic index 0.72 2% Nicolaides [employer] 1.9 mm CM 6.0 mm 29% Nicolaides [...] 4-chamber view. RVOT view. LVOT view. 3-vessel view.2-bvbxoc-hanzcjt view. Situs. Aortic arch view. Bicaval view. [...] 4.8 cm. Recommendations ----- --------- Please see [facility] documentation from today. The patient is scheduled in four to six week(s) to complete anatomicsurvey. Subsequent follow up or other follow up as clinically determined byprimary OB provider unless otherwise specified by [facility]. Results forwarded to ordering provider so they can follow up with thepatient as necessary. The copy-to physician of this order is LUIS EDUARDO Roberto The ordering physician of this order is TIARA Rico us Luis Eduardo Euceda CNM IMG OB US PROCEDURES Final R esult * US OB follow up transabdominal approach (12/23/2024 9:34 AM EDT) Anatomical Region Laterality Modality Body Ultrasound 12/24/2024 11:3 6 PM EDT Narrative 12/25/2024 6:37 AM EDT EXAM: US OB FOLLOW UP TRANSABDOMINAL APPROACH [...] to cervix. Low-lying placenta has resolved. Electronically Signed:Electronically signed by BALBINA JOHNSON II, MD, PHD at 24-Dec-2024 11:34:59 PM [facility] Procedure Note Balbina Johnson MD - 12/25/2024 EXAM: US OB FOLLOW UP TRANSABDOMINAL APPROACH HISTORY: Small for gestational age. COMPARISON: OB ultrasound 11/01/2024. TECHNIQUE: Two-dimensional transabdominal grayscale ultrasound imaging ofthe pelvis was performed. FINDINGS: Gestation: Single Presentation: Breech Cardiac Activity: 160 beats per minute Placental Location: Anterior with no sonographic abnormalitiesidentified. Cervical Length: 4.5 cm Amniotic Fluid Index: [...] gestation 27 weeks, 5 days by LMP. Today'sultrasound measurements correlate with a gestational age of 25 weeks 4days. Estimated weight is 806 grams, ( 1 lb 12 oz) which correlatesto 1 %. SONIA is 04/03/2025. 2. growth is small for gestational age. 3. Unremarkable placental tip to cervix. Low-lying placenta hasresolved. Electronically Signed:Electronically signed by BALBINA JOHNSON II, MD, PHDat 24-Dec-2024 11:34:59 PM [facility] us Luis Eduardo SANTOSM IMG OB US PROCEDURES Final R esult from Last 3 Months Insurance [facility] Care Teams Field Geologist Relationship Specialty Start Date End Date Amanda Urrutia MD [address] [place], [place] [phone] PCP - General Family Medicine 04/10/24 Lillie Barry NP [address] [place] [address] Nurse Practitioner Family Medicine 04/10/24
--- OUTSIDE RECORDS SUMMARY | 2025-03-20 05:06 | XMS_ITS | Encounter Summary ---
Author Organization [facility] Address [address] [place] [address] Care Team Providers Care Unit Aide Tech Name Role Phone Lillie Barry NP Unavailable [phone] Amanda Urrutia MD Primary Care Provider Encounter Details Date Type Department Care Team (Late st Contact Info) Description 03/18/2025 Bamboo flowsheet [facility] [address] [place] [address] Krista Euceda CNM [address] [place], [place] [phone] Social History Tobacco Use Types Packs/Day Years [...] AM EDT Telemedicine [facility] [address] [place] [address] Krista Euceda CNM [address] [place] [address] documented as of this encounter Visit Diagnoses Not on filedocumented in this encounter Care Teams Unit Aide Tech Relationship Specialty Start Date End Date Amanda Urrutia MD [address] [place] [address] PCP - General Family Medicine 04/10/24 Lillie Barry NP [address] [facility] [place] [place] [address] Nurse Practitioner Family Medicine 04/10/24 documented as of this encounter
--- OUTSIDE RECORDS SUMMARY | 2025-03-20 05:06 | XMS_ITS | Clinical Summary ---
Author Organization [facility] tem Address [id number] [address] [place] [address] Care Team Providers Care Circus Trainer Name Role Phone Unavailable Primary Care Provider Unavailabl e Allergies No known active allergies Medications [id number] c acid ( 19) 29 mg iron- 1 mg tablet,chewable Chew 1 tablet and swallow in the morning. Active Encounters Date Type Department Care Team Description 02/07/2025 8:30 AM EDT - 02/07/2025 11:59 PM EDT Hospital Encounter [facility] [address] [place] [phone] Hope Coppola MD Palpitations Discharge Disposition: Home 02/06/2025 Travel 01/28/2025 1:49 PM EDT - 01/28/2025 11:59 PM EDT Hospital Encounter [facility] US Imaging [address] [place] [phone] Suspected problem with growth not found Discharge Disposition: Home 01/28/2025 Travel 01/20/2025 10:00 AM EDT Ancillary Procedure [facility] [address] [place] [phone] Hope Coppola MD Palpitations 01/20/2025 9:30 AM EDT Office Visit [facility] [address] [place] [phone] Long Lucas MD Boumegouas, Manel, MD Palpitations (Primary Dx) 01/20/2025 Travel 01/02/[address] [facility] [address] [place] [phone] External, Scanning Provider 12/30/2024 Orders Only Maternal- Medicine at [facility] [address] [place] [phone] Adwoa Suggs RN Suspected problem with growth not found (Primary Dx) 12/27/2024 1:00 PM EDT Office Visit Maternal- Medicine at [facility] [address] [place] [phone] Tiara Castro MD Suspected problem with growth not found (Primary Dx); 28 weeks gestation of 12/27/2024 11:13 AM EDT - 12/27/2024 11:59 PM EDT Hospital Encounter [facility] US Imaging [address] [place] [phone] Screening, , for anatomic survey Discharge Disposition: Home 12/27/2024 Travel 12/26/2024 Abstract Maternal- Medicine at [facility] [address] [place] [phone] Tiara Castro MD from Last 3 Months Family History Medical History Relation Name Comments Cirrhosis Father Hypertension Father Diabetes Maternal Aunt Hypertension Maternal Aunt Cancer Maternal Grandfather Hypertension Maternal Grandfather Diabetes Maternal Grandmother Hypertension Maternal Grandmother Relation Name Status Comments Father Maternal Aunt Maternal Grandfather Maternal Grandmother Social History Tobacco Use Types Packs/Day Years Used Date Smoking Tobacco: Never Passive Smoke Exposure: Never Smokeless Tobacco: Never Tobacco Cessation:Counseling Given: Not Answered Alcohol Use Standard Drinks/Week Comments Not Currently 0 (1 standard drink = 0.6 oz pur e alcohol) Childcare Answer Date Recorded Childcare Unknown 02/27/2019 Employment Answer Date Recorded Employment Unknown 02/27/2019 Hunger Screening Answer Date Recorded Within the past 12 months we worried whether our food would run out before we got money to buy more. Never True 01/20/2025 Within the past 12 months th e food we bought just didn't last and we didn't have money to get more. Never True 01/20/2025 Estimated Date of Delivery Comme nts Yes 03/19/2025 Based on Ultraso und Sex and Gender Information Value Date Recorded Sex Assigned at Not on file Legal Sex Female 11:59 AM EDT Gender Identity Not on file Sexual Orientation Not on file Last Filed Vital Signs Vital Sign Reading Time Taken Comments Blood Pressure 114/72 01/20/2025 9:12 AM EDT Pulse 97 01/20/2025 9:12 AM EDT Temperature - - Respiratory Rate - - Oxygen Saturation 98% 01/20/2025 9:12 AM EDT Inhaled Oxygen Concentration - - Weight 76.7 kg (169 lb) 01/20/2025 9:12 AM EDT Height 157.5 cm (5' 2 ) 01/20/2025 9:12 AM EDT Body Mass Index 30.91 01/20/2025 9:12 AM EDT Plan of Treatment Health Maintenance Due Date Last Done Comments Chlamydia Screening 2002 Depression Screening 2014 Adult BMI Follow Up Plan 02/11/2020 Pap Smear 2023 COVID-19 Vaccine (2 - 2023-2 5 season) 2024 05/04/2023 Influenza Vaccine 05/19/2025 07/17/2024, 07/14/2023 Adult BMI Screening 01/20/2026 01/20/2025 Tobacco Screening 01/20/2026 01/20/2025 DTaP,Tdap and Td Vaccines (1 0 - Td or Tdap) 03/10/2033 03/10/2023, 10/19/2021, 05/05/2014, Additional history exists Medical Devices Not on file Procedures Procedure Name Priority Date/Time Associated Diagnosis Comments ECHO COMPLETE WO CONTRAST Routine 02/07/2025 9:08 AM EDT Palpitations [facility] OB FOLLOW-UP, 1 FETUS Routine 01/28/2025 3:16 PM EDT Suspected problem with growth not found EVENT MONITOR (IN OFFICE) Routine 01/20/2025 9:59 AM EDT Palpitations POCT EKG Routine 01/20/2025 Palpitations US MFM COMPREHENSIVE ANATOMIC SURVEY Routine 12/27/2024 1:03 PM EDT Screening, , for anatomic survey from Last 3 Months Results * Echo complete W/O contrast (02/07/2025 9:08 AM EDT) LVOT stroke volume 60.68 ml XCELERA LV Systolic Volume 32.40 mL XCELERA EF 66 % XCELERA FS 35 28 - 44 % XCELERA LV Diastolic Volume 94.70 mL XCELERA LVIDd 4.90 cm XCELERA LVIDs 3.20 cm XCELERA IVS 0.70 0.6 - 1.1 cm XCELERA PW 0.80 0.6 - 1.1 cm XCELERA LVOT diameter 1.90 cm XCELERA TDI 15.40 cm/s XCELERA MV TDI E' (medial) 10.90 cm/s XCELERA LA Volume Index 14.3 mL/m2 XCELERA E/A ratio 1.36 XCELERA E wave deceleration time 151.00 msec XCELERA MV Peak E Rajeev 71.00 cm/s XCELERA MV Peak A Rajeev 52.10 cm/s XCELERA LA size 3.60 cm XCELERA Aortic root 2.30 cm XCELERA LA volume 26.20 cm3 XCELERA RV diastolic dimension (basal) 34.0 mm XCELERA RVID d 3.1 cm XCELERA TAPSE 2.18 cm XCELERA AV peak rajeev 145.00 cm/s XCELERA LVOT peak rajeev 1.13 m/s XCELERA AV VTI 29.80 cm XCELERA LVOT peak VTI 21.40 cm XCELERA AV mean gradient 5.00 mmHg XCELERA AV peak gradient 8.41 mmHg XCELERA AV valve area 2.04 XCELERA Valve area - Index 1.1 XCELERA MV pressure 1/2 time 44.00 ms XCELERA MV valve area p 1/2 method 5.00 cm2 XCELERA TR Peak Rajeev 1.6 m/s XCELERA TR peak gradient 7.62 mmHg XCELERA PV mean gradient 3.00 mmHg XCELERA PV peak gradient 6.05 mmHg XCELERA LV ESV A2C 25.60 mL XCELERA LV ESV A4C 27.20 mL XCELERA LV RWT 2D 32.65 XCELERA Echo EF Estimated 66 % XCELERA AV Velocity Ratio 0.72 XCELERA Left Ventricle Mass 120.27769 [id number] 8 g XCELERA Interventricular Septum Diastolic Thickness by 2D 7 cm XCELERA Est. RA pressure 3 mmHg XCELERA RA area 15.7 cm2 XCELERA RV Peak Systolic Pressure 13 mmHg XCELERA Anatomical Region Laterality Modality Chest N/A Ultrasound Narrative 02/07/2025 12:10 PM EDT Left Ventricle: Left ventricle appears normal in size. Systolic function is normal with an ejection fraction of 60-65%. The quantitative EF by 2D Matta biplane is 66%. Tricuspid Valve: RVSP calculated at 13 mmHg. RVSP is based on RA pressure of 3 mmHg. Left Ventricle Left ventricle appears normal in size. Wall thickness is normal. Systolic function is normal with an ejection fraction of 60-65%. The quantitative EF by 2D Matta biplane is 66%. No obvious regional wall motion abnormalities. Normal diastolic function is present. Lateral E' is 15.40 cm/s. Medial E' is 10.90 cm/s. Right Ventricle The right ventricular basal diameter is 34.0 mm. Normal tricuspid annular plane systolic excursion. Normal systolic excursion velocity by TDI (>9.5 cm/s). Left Atrium Left atrium volume index is normal. The left atrial volume index is 14.3 mL/m2. Right Atrium Right atrium is normal in size. The right atrial area is 15.7 cm2. IVC/SVC The right atrial pressure is estimated at 3 mmHg. There is normal collapse with deep inspiration. Mitral Valve The leaflets are mildly thickened. There is trace regurgitation. There is no evidence of mitral valve stenosis. Tricuspid Valve Tricuspid valve appears to be normal. There is trace regurgitation. There is no evidence of tricuspid valve stenosis. RVSP calculated at 13 mmHg. RVSP is based on RA pressure of 3 mmHg. Aortic Valve The aortic valve is trileaflet. There is no regurgitation or stenosis. Pulmonic Valve The pulmonic valve was not well visualized. Pulmonic valve structure is grossly normal. There is mild regurgitation. There is no evidence of pulmonic valve stenosis. The peak gradient is 6.05 mmHg. The mean gradient is 3.00 mmHg. Ascending Aorta The aortic root is normal in size. Pericardium The pericardium appears normal. Study Details A complete echo was performed using complete 2D, color flow Doppler and spectral Doppler. Overall the study quality was adequate. Patient is 34w2d . Wall Scoring Baseline Score Index: 1.00 The left ventricular wall motion is normal. us Hope Coppola MD CV ECHO ORDERABLES Final Res ult * US MFM OB FOLLOW-UP, 1 FETUS (01/28/2025 3:16 PM EDT) Only the most recent of2 resultswithin the time period is included. Anatomical Region Laterality Modality OB-MOTOR MAN Ultrasound 01/28/2025 2:24 PM EDT Narrative 01/28/2025 4:05 PM EDT NAME: JOSUE MARTINEZ : 2000 SEX: F Accession Number: [id number] ORDERING PHYSICIAN: TIARA CASTRO REFERRING PHYSICIAN: LUIS EDUARDO PERES Coding ----- --------- Procedures 23312: Follow-up Ultrasound, per fetus [address]69: Transvaginal Ultrasound (OB) Indication ----- --------- Screening for follow-up survey, Screening for cervical length. History ----- --------- OB History 3. Para 1 [id number] Maternal Assessment ----- --------- Physical Exam Height 157 cm, 5 ft 2 in. Weight 77 kg, 169 lb. Initial weight 77 kg, 169 lb. BMI 30.91 kg/m . Initial BMI 30.91 kg/m . Weight gain 0 kg, 0 lb Method ----- --------- Transabdominal and transvaginal ultrasound examination. View: Suboptimal view: limited by late gestational age and position. ----- --------- Blood . Number of fetuses: 1 Dating ----- --------- LMP on: 06/12/2024 GA by LMP 32 w + 6 d SONIA by LMP: 03/19/2025 Previous Ultrasound on: 08/12/2024 Type of prior assessment: GA GA at prior assessment date 8 w + 5 d GA by previous U/S 32 w + 6 d SONIA by previous Ultrasound: 03/19/2025 Ultrasound examination on: 01/28/2025 GA by U/S based upon: AC, BPD, Femur, HC GA by U/S 32 w + 4 d SONIA by U/S: 03/21/2025 Assigned: based on the LMP, selected on 12/27/2024 Assigned GA 32 w + 6 d Assigned SONIA: 03/19/2025 General Evaluation ----- --------- Cardiac activity Present. FHR 148 bpm. movements: visualized. Presentation: cephalic Placenta: Placental site: anterior, away from cervical os Umbilical cord: Cord vessels: 3 vessel cord. Insertion site: documented previously Amniotic fluid: Amount of AF: normal amount. MVP 3.7 cm Biometry ----- --------- Standard BPD 80.7 mm 32w 3d 30% Hadlock OFD 105.8 mm 34w 6d 87% Prashanth HC 296.6 mm 32w 6d 14% Hadlock Cerebellum tr 40.5 mm 32w 3d 19% Hill AC 287.9 mm 32w 6d 49% Hadlock Femur 61.6 mm 32w 0d 17% Hadlock Humerus 53.0 mm 30w 6d 12% Prashanth HC / AC 1.03 EFW 1,991 g 31% Hadlock EFW (lb) 4 lb EFW (oz) 6 oz EFW by: Hadlock ([id number]) Extended Tibia 52.1 mm 30w 6d 14% Prashanth Bus And Rail Operator 1.5 mm CM 6.5 mm 27% Nicolaides Head / Face / Neck Cephalic index 0.76 14% Nicolaides Nasal bone: documented previously Extremities / Bony Struc FL / BPD 0.76 FL / HC 0.21 FL / AC 0.21 Other Structures FHR 148 bpm Anatomy ----- --------- The following structures appear normal: Head/Neck: Cranium. Lateral ventricles. Cavum septi pellucidi. Cerebellum. Cisterna magna. Parenchyma. Heart/Thorax: 4-chamber view. Cardiac rhythm. Abdomen: Stomach. Kidneys. Bladder. Small bowel. Large bowel. Genitals. The following structures could not be adequately visualized: Spine: Cervical spine. Thoracic spine. Lumbar spine. Sacral spine. The following structures were documented previously: Head / Neck Choroid plexus. Midline falx. Vermis. Neck. Face: Lips. Profile. Nose. Nasal bone. Maxilla. Mandible. Orbits. Heart / Thorax RVOT view. LVOT view. 3-vessel view. 4-dxsiva-arksggd view. Situs. Aortic arch view. Bicaval view. Ductal arch view. Interventricular septum. Great vessels. Cardiac position. Cardiac axis. Cardiac size. Right lung. Left lung. Diaphragm. Abdomen Abdom. wall. Cord insertion. Right renal artery. Left renal artery. Extremities/Skeleton: Right upper arm. Right forearm. Right hand. Left upper arm. Left forearm. Left hand. Right upper leg. Right lower leg. Right foot. Left upper leg. Left lower leg. Left foot. Maternal Structures ----- --------- Uterus Visualized Cervix Visualized Approach - Transvaginal: Cervical length 2.42 cm Right Ovary Visualized Size 33 mm x 14 mm x 11 mm. Vol 2.5 cm Left Ovary Not visualized Cul de Sac Visualized. No free fluid visualized Impression ----- --------- Single viable intrauterine with appropriate interval growth. EFW measures at the 31%, AC measures at the 49%. Amniotic fluid MVP measures 3.7 cm. Transvaginal cervical length measures 2.42 cm. No evidence of low lying placenta. Recommendations ----- --------- anatomic survey is incomplete due to late gestational age and suboptimal visualization. Patient is not scheduled to return for additional ultrasound. Please reschedule for specific concerns or indications. Subsequent follow up or other follow up as clinically determined by primary OB provider unless otherwise specified by MFM. Results forwarded to ordering provider so they can follow up with the patient as necessary. Procedure Note Abad Robertson MD - 01/28/2025 NAME: JOSUE MARTINEZ : 2000 SEX: F Accession Number: [id number] ORDERING PHYSICIAN: TIARA CASTRO REFERRING PHYSICIAN: LUIS EDUARDO PERES Coding ----- --------- Procedures 26103: Follow-up Ultrasound, per fetus 01366: Transvaginal Ultrasound (OB) Indication ----- --------- Screening for follow-up survey, Screening for cervical length. History ----- --------- OB History 3. Para 1 [id number] Maternal Assessment ----- --------- Physical Exam Height 157 cm, 5 ft 2 in. Weight 77 kg, 169 lb. Initialweight 77 kg, 169 lb. BMI 30.91 kg/m . Initial BMI 30.91 kg/m . Weight gain 0 kg, 0 lb Method ----- --------- Transabdominal and transvaginal ultrasound examination. View: Suboptimalview: limited by late gestational age and position. ----- --------- Blood . Number of fetuses: 1 Dating ----- --------- LMP on: 06/12/2024 GA by LMP 32 w + 6 d SONIA by LMP: 03/19/2025 Previous Ultrasound on: 08/12/2024 Type of prior assessment: GA GA at prior assessment date 8 w + 5 d GA by previous U/S 32 w + 6 d SONIA by previous Ultrasound: 03/19/2025 Ultrasound examination on: 01/28/2025 GA by U/S based upon: AC, BPD, Femur, HC GA by U/S 32 w + 4 d SONIA by U/S: 03/21/2025 Assigned: based on the LMP, selected on 12/27/2024 Assigned GA 32 w + 6 d Assigned SONIA: 03/19/2025 General Evaluation ----- --------- Cardiac activity Present. FHR 148 bpm. movements: visualized.Presentation: cephalic Placenta: Placental site: anterior, away from cervical os Umbilical cord: Cord vessels: 3 vessel cord. Insertion site: documentedpreviously Amniotic fluid: Amount of AF: normal amount. MVP 3.7 cm Biometry ----- --------- Standard BPD 80.7 mm 32w 3d 30% Hadlock OFD 105.8 mm 34w 6d 87% Prashanth HC 296.6 mm 32w 6d 14% Hadlock Cerebellum tr 40.5 mm 32w 3d 19% Hill AC 287.9 mm 32w 6d 49% Hadlock Femur 61.6 mm 32w 0d 17% Hadlock Humerus 53.0 mm 30w 6d 12% Prashanth HC / AC 1.03 EFW 1,991 g 31% Hadlock EFW (lb) 4 lb EFW (oz) 6 oz EFW by: Hadlock ([id number]) Extended Tibia 52.1 mm 30w 6d 14% Prashanth Bus And Rail Operator 1.5 mm CM 6.5 mm 27% Nicolaides Head / Face / Neck Cephalic index 0.76 14% Nicolaides Nasal bone: documented previously Extremities / Bony Struc FL / BPD 0.76 FL / HC 0.21 FL / AC 0.21 Other Structures FHR 148 bpm Anatomy ----- --------- The following structures appear normal: Head/Neck: Cranium. Lateral ventricles. Cavum septi pellucidi. Cerebellum.Cisterna magna. Parenchyma. Heart/Thorax: 4-chamber view. Cardiac rhythm. Abdomen: Stomach. Kidneys. Bladder. Small bowel. Large bowel. Genitals. The following structures could not be adequately visualized: Spine: Cervical spine. Thoracic spine. Lumbar spine. Sacral spine. The following structures were documented previously: Head / Neck Choroid plexus. Midline falx. Vermis. Neck. Face: Lips. Profile. Nose. Nasal bone. Maxilla. Mandible. Orbits. Heart / Thorax RVOT view. LVOT view. 3-vessel view. 1-wbdbbh-mczfixc view.Situs. Aortic arch view. Bicaval view. Ductal arch view. Interventricular septum. Great vessels. Cardiacposition. Cardiac axis. Cardiac size. Right lung. Left lung. Diaphragm. Abdomen Abdom. wall. Cord insertion. Right renal artery. Left renalartery. Extremities/Skeleton: Right upper arm. Right forearm. Right hand. Leftupper arm. Left forearm. Left hand. Right upper leg. Right lower leg. Right foot. Left upper leg. Left lower leg. Leftfoot. Maternal Structures ----- --------- Uterus Visualized Cervix Visualized Approach - Transvaginal: Cervical length 2.42 cm Right Ovary Visualized Size 33 mm x 14 mm x 11 mm. Vol 2.5 cm Left Ovary Not visualized Cul de Sac Visualized. No free fluid visualized Impression ----- --------- Single viable intrauterine with appropriate interval growth. EFWmeasures at the 31%, AC measures at the 49%. Amniotic fluid MVP measures 3.7 cm. Transvaginal cervical length measures 2.42 cm. No evidence of low lying placenta. Recommendations ----- --------- anatomic survey is incomplete due to late gestational age andsuboptimal visualization. Patient is not scheduled to return for additional ultrasound. Please reschedule for specific concerns orindications. Subsequent follow up or other follow up as clinically determined byprimary OB provider unless otherwise specified by MFM. Results forwarded to ordering provider so they can follow up with thepatient as necessary. us Tiara Castro MD IMG US ORDERABLES Final Result * Event Monitor (In Office) (01/20/2025 9:59 AM EDT) Anatomical Region Laterality Modality Other Narrative 03/01/2025 2:06 PM EDT Interpretation: - rhythm strips available for review show sinus rhythm, sinus bradycardia or sinus tachycardia with or without PVC. - no other significant arrhythmias identified Hope Coppola MD CV CARDIAC SERVICES ORDERABL ES Final Result * POCT EKG (01/20/2025) Hope Coppola MD ECG ORDERABLES Final Result MANUALLY TRANSCRIBED RESULTS from Last 3 Months Insurance
--- OUTSIDE RECORDS SUMMARY | 2025-03-20 05:06 | XMS_ITS | Patient Health Record ---
Author Organization [facility] Address [address] [place] [address] Care Team Providers Care Cabin Supervisor Name Role Phone Kendrick Penaloza MD Primary Care Provider iZon [facility] [phone] Reason For Referral No Information Medications Medication SIG (Take, Route, Frequency, Duration) Notes Start Date End Date Status Mobic 15 mg 1 tab(s) orally once a day for 45 days 09/23/2020 Active Social History Tobacco Use: Social History Observation Description Date Details (start date - stop date) Never Smoker NA - NA Smoking History Question Answer Notes Smoking Status NonSmoker Problems Problem Type SNOMED Code ICD Code Onset Dates Problem Status W/U Status Risk Notes Problem 577668913577991 Right foot pain (M79.671) Active confirmed Problem [id number] Stress fracture, right foot, initial encounter for fracture (M84.374A) Active confirmed Problem [id number] 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
--- OUTSIDE RECORDS SUMMARY | 2025-03-20 05:06 | XMS_ITS | Encounter Summary ---
Author Organization [facility] Address [address] [place] [address] Care Team Providers Care Certified Medical Transcriptionist Name Role Phone Lillie Barry NP Unavailable [phone] Amanda Urrutia MD Primary Care Provider [phone] Encounter Details Date Type Department Care Team (Late st Contact Info) Description 12/31/2024 Results Follow-Up [facility] [address] [place] [address] Amanda Anaya MA Social History Tobacco Use Types Packs/Day Years [...] AM EDT Telemedicine [facility] [address] [place] [address] Krista Euceda, CNM [address] [place] [address] documented as of this encounter Visit Diagnoses Not on filedocumented in this encounter Care Teams Certified Medical Transcriptionist Relationship Specialty Start Date End Date Amanda Urrutia MD [address] [facility] [place] [address] PCP - General Family Medicine 04/10/24 Lillie Barry NP [address] [place] [address] Nurse Practitioner Family Medicine 04/10/24 documented as of this encounter
--- OUTSIDE RECORDS SUMMARY | 2025-03-20 05:06 | XMS_ITS | Encounter Summary ---
Author Organization [facility] Address [address] [place] [address] Care Team Providers Care Bell Attendant Name Role Phone Lillie Barry NP Unavailable [phone] Amanda Urrutia MD Primary Care Provider [phone] Encounter Details Date Type Department Care Team (Late st Contact Info) Description 01/07/2025 Results Follow-Up [facility] [address] [place] [address] Krista Euceda CNM [address] [place], [place] [id number] Social History Tobacco Use Types Packs/Day Years [...] AM EDT Telemedicine [facility] [address] [place] [address] Krista uEceda CNM [address] [place] [address] documented as of this encounter Visit Diagnoses Not on filedocumented in this encounter Care Teams Bell Attendant Relationship Specialty Start Date End Date Amanda Urrutia MD [address] [place] [address] PCP - General Family Medicine 04/10/24 Lillie Barry NP [address] [facility] [place] [address] Nurse Practitioner Family Medicine 04/10/24 documented as of this encounter
--- OUTSIDE RECORDS SUMMARY | 2025-03-20 05:06 | XMS_ITS | Encounter Summary ---
Author Organization [facility] Address [address] [place] [address] Care Team Providers Care Ware Server Name Role Phone Lillie Barry NP Unavailable [phone] Amanda Urrutia MD Primary Care Provider [phone] Encounter Details Date Type Department Care Team (Late st Contact Info) Description 03/12/2025 Bamboo flowsheet [facility] [address] [place] [address] Krista Euceda CNM [address] [place], [place] [id number] Social History Tobacco Use Types Packs/Day Years [...] AM EDT Telemedicine [facility] [address] [place] [address] Krista Euceda CNM [address] [place] [address] documented as of this encounter Visit Diagnoses Not on filedocumented in this encounter Care Teams Ware Server Relationship Specialty Start Date End Date Amanda Urrutia MD [address] [place] [address] PCP - General Family Medicine 04/10/24 Lillie Barry NP [address] [facility] [place] [address] Nurse Practitioner Family Medicine 04/10/24 documented as of this encounter
[2025-03-20 05:33] LABS: Hematocrit 35.2 % (36.0-48.0); Hemoglobin 12.1 g/dL (12.0-16.0); Mean Corpuscular HGB Conc 34.4 g/dL (29.9-35.2); Mean Corpuscular Hemoglobin 29.7 pg (26.7-34.0); Mean Corpuscular Volume 86.5 fL (81.0-99.0); Platelet Count 174 10^3/uL (150-450); Red Blood Count 4.07 10^6/uL (4.20-5.40); White Blood Count 8.5 10^3/uL (4.0-11.0)
[2025-03-20 05:46] LABS: Cannabinoid Screen Urine NEGATIVE (NEGATIVE); Methamphetamines Screen Urine NEGATIVE (NEGATIVE)
[2025-03-20 05:47] LABS: Tricyclic Antidepressant Urine NEGATIVE (NEGATIVE)
[2025-03-20] MEDS: OXYTOCIN/0.9 % SODIUM CHLORIDE 10 UNITS/500 ML PLAST..BAG 6 UNIT IV (05:58)
[2025-03-20] MEDS: ROPIVACAINE HCL/PF 400 MG/200 ML PREMIX 10 MG EPIDURAL (15:09)
[2025-03-20] MEDS: OXYTOCIN/0.9 % SODIUM CHLORIDE 20 UNITS/1,000 ML PLAST..BAG 999 UNIT IV (17:11)
--- NOTE | 2025-03-20 17:47 | PM.OBPRCVD ---
Procedure events: Labor Induction and Labor Augmentation Intrapartal events: None Induction method: per pitocin protocol Delivery augmentation: rupture of membranes Delivery monitor: external FHT and external uterine Route of delivery: Episiotomy Description: none L&D Laceration Description: none Estimated blood loss (mL): 50 Anesthesia type: Epidural Disposition: no change Infant Delivery date: 03/20/25 Gender: female presentation: vertex Placental delivery description: Spontaneous cord description: 3 Vessels, Loose and Around Body x1 heart rate - 1 minute: 100 bpm or Greater respiratory effort - 1 minute: Spontaneous/Strong Cry muscle tone - 1 minute: Active Movement reflex response - 1 minute: Prompt Response color - 1 minute: Bluish Hands or Feet total score - 1 minute: 9 heart rate - 5 minute: 100 bpm or Greater respiratory effort - 5 minute: Spontaneous/Strong Cry muscle tone - 5 minute: Active Movement reflex response - 5 minute: Prompt Response color - 5 minute: Bluish Hands or Feet total score - 5 minute: 9
--- NOTE | 2025-03-20 17:59 | P.OBHP_ITS ---
OB - H&P: HPI History of Present Illness Chief complaint: INDUCTION : 3 Para: 1 History of Present Dating criteria: LMP confirmed by 1st trimester US care: good care Ultrasounds: normal 1st trimester US and normal mid trimester US Narrative: h/o cardiac murmur as a child, no problems in adulthood, saw cardiology Labs Blood type: O (+) positive Rubella: immune RPR/VDLR: nonreactive GBS status: negative HBsAG: negative Review of Systems ROS Status of ROS: 10 or more systems reviewed and unremarkable except as noted in history and below PFSH PFSH Social History Little interest or pleasure in doing things: not at all Feeling down, depressed, or hopeless: not at all Meds Home Medications and Allergies Allergies Allergy/AdvReac Type Severity Reaction Status Date / Time No Known Drug Allergies Allergy Verified 03/20/25 05:02 Exam Constitutional Vital Signs, click to edit/add: Last Vital Signs Temp 97.8 F 03/20/25 15:45 Pulse 71 03/20/25 17:57 BP 106/70 03/20/25 17:57 Documenting provider has reviewed patient's vital signs: yes Common normals: no apparent distress and oriented x3 General appearance: cooperative, comfortable and well kempt Orientation/consciousness: Yes awake, Yes oriented to person, Yes oriented to place and Yes oriented to time HENMT Common normals: normocephalic Eye Common normals: EOMs intact bilaterally Neck & C-Spine Common normals: full ROM and no lymphadenopathy Lymph Lymphatic: no lymphadenopathy noted Chest Common normals: inspection of chest normal Respiratory Common normals: normal respiratory effort Effort & inspection: able to speak in complete sentences Auscultation: clear to auscultation bilaterally Cardio Common normals: regular rate and regular rhythm Rate: regular rate Rhythm: regular rhythm GI Common normals: Normal to inspection, nondistended, normoactive bowel sounds present Inspection: normal to inspection Palpation: soft Common normals: no CVA tenderness Back & Pelvis Common normals: no CVA tenderness Extremity Common normals: normal to inspection Neuro Common normals: oriented x3 Sensorium/orientation: awake, alert, oriented to person, oriented to place and oriented to time Psych Common normals: mental status grossly normal, thought process normal, coopera tive, affect normal, speech normal, activity/motor behavior normal, denies hallucinations, denies homicidal ideation and denies suicidal ideation Appearance: grossly normal Attitude: calm Results Labs Labs: Short CBC 03/20/25 Range/Units 05:22 WBC 8.5 (4.0-11.0) 10^3/uL Hgb 12.1 (12.0-16.0) g/dL Hct 35.2 L (36.0-48.0) % Plt Count 174 (150-450) 10^3/uL OB - A/P Assessment and Plan (1) Term :
[2025-03-20] MEDS: GLYCERIN/WITCH HAZEL PADS 1 PAD TOPICAL (20:43)
[2025-03-20] MEDS: BENZOCAINE/MENTHOL 85 GRAM SPRAY BOTTLE 1 APPLIC TOPICAL (20:43)
[2025-03-20] MEDS: IBUPROFEN 400 MG TABLET 800 MG PO (20:44)
[2025-03-21 01:40] VITALS: BP 124/75; PULSE 56; TEMP 37
[2025-03-21] MEDS: ACETAMINOPHEN 325 MG TABLET 650 MG PO (01:51)
[2025-03-21 08:50] VITALS: BP 113/64; PULSE 56; TEMP 36.8
[2025-03-21 08:53] VITALS: BP 113/64; PULSE 56
[2025-03-21] MEDS: IBUPROFEN 400 MG TABLET 800 MG PO ×2 (08:57→21:48)
[2025-03-21] MEDS: DOCUSATE SODIUM 100 MG CAPSULE PO ×2 (08:57→21:48)
--- NOTE | 2025-03-21 11:21 | PM.OBPN ---
OB - PN: Subj Subjective Patient comments: no complaints [place] status: doing well and well feeding status: exclusively Exam Narrative Exam Narrative: pt doing well, no complaints. lochia normal Constitutional Vital Signs, click to edit/add: Last Vital Signs Temp 98.3 F 03/21/25 08:50 Pulse 56 L 03/21/25 08:53 Resp 16 03/21/25 08:50 BP 113/64 03/21/25 08:53 O2 Del Method Room Air 03/21/25 01:40 Chest Common normals: inspection of breasts normal and palpation of breasts normal Speculum exam - vagina: other (perineum intact) Bimanual exam- vagina & uterus: uterus non-tender Extremity Common normals: no calf tenderness OB - PN: A/P Assessment and Plan (1) Term : Plan - Vaginal Delivery day: 1 Plan: routine care Time Spent with Patient Time: Total time spent is greater than 50% in coordination of care (as documented) at patient's floor/unit and/or counseling patient: Total time spent with greater than 50% in coordination of care (as documented) at patient's floor/unit and/or counseling patient: less than 15 minutes
[2025-03-21 16:06] VITALS: BP 101/65; PULSE 57
[2025-03-21 16:10] VITALS: BP 101/65; PULSE 57; TEMP 36.6
[2025-03-22 01:20] VITALS: BP 120/73; PULSE 64; TEMP 36.7
[2025-03-22 08:11] VITALS: BP 103/69; PULSE 54; TEMP 36.8
[2025-03-22] MEDS: DOCUSATE SODIUM 100 MG CAPSULE PO (08:21)
--- NOTE | 2025-03-22 10:31 | P.OBPN_ITS ---
OB - PN: Subj Subjective Patient comments: no complaints [place] status: doing well feeding status: expressed and bottle feeding Exam Constitutional Vital Signs, click to edit/add: Last Vital Signs Temp 98.2 F 03/22/25 08:11 Pulse 54 L 03/22/25 08:11 Resp 18 03/22/25 08:11 BP 103/69 03/22/25 08:11 O2 Del Method Room Air 03/22/25 08:14 Chest Common normals: palpation of breasts normal Respiratory Common normals: normal respiratory effort Cardio Common normals: regular rate and regular rhythm Bimanual exam- vagina & uterus: uterus non-tender (below umbilicus and firm) and other (lochia normal) Other: perineum intact Extremity Common normals: no calf tenderness and no pedal edema OB - PN: A/P Assessment and Plan (1) Term : Plan - Vaginal Delivery day: 2 Plan: discharge home and follow up 6 weeks Time Spent with Patient Time: Total time spent is greater than 50% in coordination of care (as documented) at patient's floor/unit and/or counseling patient: Total time spent with greater than 50% in coordination of care (as documented) at patient's floor/unit and/or counseling patient: less than 15 minutes
--- NOTE | 2025-03-22 10:34 | P.DS_ITS ---
DS: Providers Provider Date of admission: 03/20/25 04:58 Primary care physician: Lillie Barry NP Admitting clinician: LUIS EDUARDO PERES Attending physician on discharge: OCTAVIANO HERNANDEZ Discharging clinician: OCTAVIANO HERNANDEZ Anticipated date of discharge: 03/22/25 DS: Diagnosis Discharge Diagnosis (1) Term : Plan term pregancy, uncomplicated, d/c home OB - DS: Summary Peripartum Data - Vaginal Delivery Laceration description: none Episiotomy Description: none Complications complications: none Delivery method: spontaneous vaginal delivery Gender: female Discharge plan: home Status at Discharge Functional status at discharge: independent ambulation Overall status at discharge: patient is back to baseline Time Spent with Patient Time attestation: Total time spent providing and/or coordinating discharge services: Time spent: less than 30 minutes Exam Constitutional Vital Signs, click to edit/add: Last Vital Signs Temp 98.2 F 03/22/25 08:11 Pulse 54 L 03/22/25 08:11 Resp 18 03/22/25 08:11 BP 103/69 03/22/25 08:11 O2 Del Method Room Air 03/22/25 08:14 Bimanual exam- vagina & uterus: uterus non-tender (firm below umbilicus) Discharge Plan Discharge Disposition: Home, Self-Care Condition: Good Activity: resume usual activities as tolerated Diet: regular diet Print Language: Ukrainian Forms: Portal Instructions Follow Up Appointments: 6w
== END 2025-03-22 11:15 | disposition home or self-care (01) | DRG 807 ==
PROVIDERS: Admitting Provider Midwife; PCP Nurse Practitioner Family; Visit Provider Midwife
DX: O80 Encounter for full-term uncomplicated delivery (principal); Z37.0 Single live birth; Z3A.40 40 weeks gestation of pregnancy
CPT/HCPCS: 36415; 51702; 59050; 59410; 80307; 85027; 86850; 86900; 86901; J2795

== ENCOUNTER 2025-03-26 08:22 | Outpatient (OUT) | payer BC, SELFPAY ==
--- NOTE | 2025-03-26 16:18 | PC.NURSE ---
StephanieHardik rosario, and 6 day old Adkins arrive for follow up. Mom states is doing well. Denies any complaints except nipples are really tender and scabbed . VSS and assessment WNL for Stephanie. No edema noted, no stitches or complaints of perineal discomfort. Bleeding small amount that is turning darker today. Milk in and states has been nursing baby every 1-2 hours on demand. Baby only taking 1 breast per feed. Discussed using both breasts for feed and benefits for same. Mom states baby slept almost 7 hours last night . Discussed possible impact on supply when going 7 hours with out emptying her breasts. Pt agrees, I hurt and was rock hard this morning, I had to pump before she could latch Also introduced to amenorrhea. Baby Stephanie alert, awake and tracking voices. Vss and assessment WNL. Baby weight is 20 gms below weight on day 6. Parents surprised and pleased with . Baby to breast per mom, cries and fusses in football hold. Moved to cross cradle. Shallow latch obtained per mom. LC demo's positioning, hand placement for breast support and bringing in for deep latch. Mom able to return demo and baby fed 18 minutes well. Infant burped and diaper changed for large yellow seedy stool, and void. Infant quiet, alert after feed. Mom shown breast care for nipple damage. States feel so much better when deeper latch is achieved. Uses lanolin and shells for breast care, taking Soothies home as well to alternate with shell. States has used tea bags a few times for care as well. Plans to return 04/02/2025 for further support and check healing. Of note: this mom was not able to have first daughter latch at breast no help learning so pumped and fed. Very proud to be doing so well with this baby. Confident in ability to continue to breast feed baby. No further concerns voiced. Family leaves ambulatory for home.
[2025-03-26 16:19] VITALS: BP 121/86; PULSE 75; TEMP 36.6; O2SAT 98
--- NOTE | 2025-03-26 16:22 | PC.NURSE ---
Stephanie noted to be tearful and smiling at the same time. States just hormones Talked about Baby Blues and hormone fluctuations. Pt and both aware of S/S that need intervention. States I really am Okay, Aware to call PCP if remains tearful past 2 week belle.
== END 2025-03-26 16:25 | disposition home or self-care (01) ==
LOC: FBCO 08:24
PROVIDERS: PCP Nurse Practitioner Family; Visit Provider Midwife
DX: Z39.1 Encounter for care and examination of lactating mother (principal)

== ENCOUNTER 2025-04-02 08:45 | Outpatient (OUT) | payer BC, SELFPAY ==
--- OUTSIDE RECORDS SUMMARY | 2025-04-02 08:49 | XMS_ITS | Encounter Summary ---
Author Organization [facility] Healthcare Address [address] [place] [address] Care Team Providers Care Crib Pad Maker Name Role Phone Lillie Barry NP Unavailable [phone] Amanda Urrutia MD Primary Care Provider [phone] Encounter Details Date Type Department Care Team (Late st Contact Info) Description 03/24/2025 Patient Outreach [facility] [address] [place] [address] Christa Davis LPN [address] [place] [address] Social History Tobacco Use Types Packs/Day Years Used Date Smoking Tobacco: Never Smokeless Tobacco: Never Alcohol Use Standard Drinks/Week Comments Not Currently 0 (1 standard drink = 0.6 oz pure alcohol) Caffeine: 4 cups of coffee daily PHQ-2 Answer Date Recorded Patient Health Questionnaire-2 Score 0 03/24/2025 Estimated Date of Delivery Comme nts Yes 03/19/2025 Based on last me nstrual period of 06/12/2024 (Exact Date) Sex and Gender Information Value Date Recorded Sex Assigned at Not on file Legal Sex Female 7:36 PM EDT Gender Identity Not on file Sexual Orientation Not on file documented as of this encounter Functional Status * Over the past 2 weeks, how often have you been bothered by any of the following problems? Question Answer Date of Assessment Author Little interest or pleasure in doing things Not at all 03/24/2025 12:30 PM EDT Christa Davis, MERRICK Mauricio Feeling down, depressed, or hopeless Not at all 03/24/2025 12:30 PM EDT Christa Davis LP N Patient Health Questionnaire -2 Score 0 03/24/2025 12:30 PM EDT Christa Davis LP N documented as of this encounter Progress Notes * Christa Dvais LPN - 03/24/2025 12:29 PM EDT Images from the original note were not included. Flowsheet Row Patient Outreach from 03/24/2025 in [facility] with Christa Davis LPN Hospital Information ED, Hospital or Long-Term Facility Discharge? Hospital Patient has been contacted within two business days of discharge Yes Diagnosis Discharge Date 03/22/25 Discharged To: Home Setting Discharge Hospital [facility] Engagement Call Start Time 1224 Admission Date 03/20/25 Medications Discharge medications reviewed and reconciled from hospital? Yes Is the patient having any side effects they believe may be caused by any medication additions or changes? No Does the patient have all medications ordered at discharge? Yes Nursing Interventions No intervention needed Is the patient taking all medications as directed (includes completed medication regime)? Yes Nursing Interventions Nurse provided patient education Appointments Does the patient have a primary care provider? Yes Does the patient have any upcoming specialty appointments? Yes [PPV video call 04/02/25.] Nursing Interventions Advised patient to keep appointment Self Management Patient Teaching Does the patient have access to their discharge instructions? Yes Nursing Interventions Reviewed instructions with patient What is the patient's perception of their health status since discharge? Improving Wrap Up Call End Time 1230 MEHUL Complete. Call to pt. Pt reports she is pain free and is not taking any OTC pain relievers. Pt describes bleeding as normal lochia. Bowels are regular. Pt denies any depression or difficulty coping at this time. Pt is currently and baby see peds on 03/25/2025. Pt has crib, car seat,and diapers/wipes. Pt denies any questions, concerns or needs today. Meds reconciled. OB PPV video call 04/02/2025 documented in this encounter Plan of Treatment Upcoming Encounters Date Type Department Care Team (Late st Contact Info) Description 04/02/2025 11:30 AM EDT Telemedicine [facility] OB [address] [place] [address] Krista Euceda, CN [address] [place] [address] documented as of this encounter Visit Diagnoses Diagnosis (spontaneous vaginal delivery) ([facility])- Primary Normal delivery documented in this encounter Care Teams Crib Pad Maker Relationship Specialty Start Date End Date Amanda Urrutia MD [address] [place] [address] PCP - General Family Medicine 04/10/24 Lillie Barry NP [address] [place] [address] Nurse Practitioner Family Medicine 04/10/24 documented as of this encounter
--- OUTSIDE RECORDS SUMMARY | 2025-04-02 08:49 | XMS_ITS | Encounter Summary ---
Author Organization [facility] Address [address] [place] [address] Care Team Providers Care Java Programmer Name Role Phone Lillie Barry NP Unavailable [phone] Amanda Urrutia MD Primary Care Provider [phone] Encounter Details Date Type Department Care Team (Late st Contact Info) Description 03/20/2025 Clinisync Result Encounter [facility] External Department Unsolicited Krista Euceda CNM [address] [place] [address] Social History Tobacco Use Types Packs/Day Years [...] 11:30 AM EDT Telemedicine [facility] [address] [place] [address] Krista Euceda CNM [address] [place] [address] documented as of this encounter Procedures Procedure Name Priority Date/Time Associated Diagnosis Comments HMHP CBC WITH PLATELET NO DIFFERENTIAL Routine 03/20/2025 5:22 AM EDT TB[facility] DRUG SCREEN RAPID (URINE) Routine 03/20/2025 5:15 AM EDT documented in this encounter Results * (ABNORMAL) HP CBC WITH PLATELET NO DIFFERENTIAL (03/20/2025 5:22 AM EDT) [facility] WBC 8.5 4.0 - 11.0 10 3/uL TBH TBH RBC 4.07(L) 4.20 - 5.40 10 6/uL TBH TBH HGB 12.1 12.0 - 16.0 g/dL TBH TBH HCT 35.2(L) 36.0 - 48.0 % TBH TBH MCV 86.5 81.0 - 99.0 fL TBH TBH MCH 29.7 26.7 - 34.0 pg TBH TBH MCHC 34.4 29.9 - 35.2 g/dL TBH TBH RDW 12.7 11.0 - 15.0 % TBH TBH PLT 174 150 - 450 10 3/uL TBH TBH MPV 10.9 9.5 - 13.5 fL TBH 03/20/2025 5:22 AM EDT 03/20/2025 5:30 AM EDT Narrative [facility] - 03/20/2025 5:35 AM EDT us Krista Euceda CNM [facility] Final Result [facility] TB * TB DRUG SCREEN RAPID (URINE) (03/20/2025 5:15 AM EDT) CANNABINOID SCREEN URINE NEGATIVE NEGATIVE TBH PHENCYCLIDINE SCREEN URINE NEGATIVE NEGATIVE TBH COCAINE SCREEN URINE NEGATIVE NEGATIVE TBH METHAMPHETAMINES SCREEN URINE NEGATIVE NEGATIVE TBH OPIATE SCREEN URINE NEGATIVE NEGATIVE TBH AMPHETAMINE SCREEN URINE NEGATIVE NEGATIVE TBH BENZODIAZEPINES SCREEN URINE NEGATIVE NEGATIVE TBH TRICYCLIC ANTIDEPRESSANT URINE NEGATIVE NEGATIVE TBH METHADONE SCREEN URINE NEGATIVE NEGATIVE TBH BARBITURATES SCREEN URINE NEGATIVE NEGATIVE TBH OXYCODONE SCREEN URINE NEGATIVE NEGATIVE TBH BUPRENORPHINE SCREEN URINE NEGATIVE NEGATIVE TBH Comment: DRUG CLASS TEST SYSTEM CUT-OFF CONCENTRATIONS ARE FOLLOWS: AMP (Amphetamine): 500 ng/mL BAR (Barbiturates): 200 ng/mL BZO (Benzodiazepines): 150 ng/mL BUP (Buprenorphine): 10 ng/mL JACQUIE (Cocaine): 150 ng/mL mAMP (Methamphetamine): 500 ng/mL MTD (Methadone): 200 ng/mL OPI (Opiates): 100 ng/mL OXY (Oxycodone): 100 ng/mL PCP (Phencyclidine): 25 ng/mL THC (Cannabinoids): 50 ng/mL TCA (Trycyclic Antidepressants): 300 ng/mL 03/20/2025 5:15 AM EDT 03/20/2025 5:30 AM EDT Narrative [facility] - 03/20/2025 5:47 AM EDT us Krista Euceda CN [facility] Final Result Performing Organization Address City/State/[facility] Co de Phone Number [facility] documented in this encounter Visit Diagnoses Not on filedocumented in this encounter Care Teams Java Programmer Relationship Specialty Start Date End Date Amanda Urrutia MD [address] [place] [address] PCP - General Family Medicine 04/10/24 Lillie Barry NP [address] [place] [address] Nurse Practitioner Family Medicine 04/10/24 documented as of this encounter
--- OUTSIDE RECORDS SUMMARY | 2025-04-02 08:50 | XMS_ITS | Encounter Summary ---
Author Organization [facility] Address [address] [place] [address] Care Team Providers Care Webfed Offset Press Operator Name Role Phone Lillie Barry NP Unavailable [phone] Amanda Urrutia MD Primary Care Provider [phone] Encounter Details Date Type Department Care Team (Late st Contact Info) Description 01/07/2025 Results Follow-Up [facility] [address] [place] [address] Krista Euceda CNM [address] [place], [place] [id number] Social History Tobacco Use Types Packs/Day Years [...] AM EDT Telemedicine [facility] [address] [place] [address] Krista Euceda CNM [address] [place] [address] documented as of this encounter Visit Diagnoses Not on filedocumented in this encounter Care Teams Webfed Offset Press Operator Relationship Specialty Start Date End Date Amanda Urrutia MD [address] [place] [address] PCP - General Family Medicine 04/10/24 Lillie Barry NP [address] [facility] [place] [address] Nurse Practitioner Family Medicine 04/10/24 documented as of this encounter
--- OUTSIDE RECORDS SUMMARY | 2025-04-02 08:50 | XMS_ITS | Clinical Summary ---
Author Organization [facility] tem Address [id number] [address] [place] [address] Care Team Providers Care Dewaxer Name Role Phone Unavailable Primary Care Provider Unavailabl e Allergies No known active allergies Medications [id number] c acid ( 19) 29 mg iron- 1 mg tablet,chewable Chew 1 tablet and swallow in the morning. Active Encounters Date Type Department Care Team Description 02/07/2025 8:30 AM EDT - 02/07/2025 11:59 PM EDT Hospital Encounter [facility] [address] [place] [address] Hope Coppola MD Palpitations Discharge Disposition: Home 02/06/2025 Travel 01/28/2025 1:49 PM EDT - 01/28/2025 11:59 PM EDT Hospital Encounter [facility] Imaging [address] [place] [address] Suspected problem with growth not found Discharge Disposition: Home 01/28/2025 Travel 01/20/2025 10:00 AM EDT Ancillary Procedure [facility] [address] [place] [phone] Hope Coppola MD Palpitations 01/20/2025 9:30 AM EDT Office Visit [facility] [address] [place] [phone] Long Lucas MD Boumegouas, Manel, MD Palpitations (Primary Dx) 01/20/2025 Travel 01/02/2025 Abstract [facility] [address] [place] [address] External, Scanning Provider from Last 3 Months Family History Medical [...] Pap Smear 2023 COVID-19 Vaccine (2 - 2024-2 5 season) 2024 05/04/2023 Influenza Vaccine 05/19/2025 07/17/2024, 07/14/2023 Adult BMI Screening 01/20/2026 01/20/2025 Tobacco Screening 01/20/2026 01/20/2025 DTaP,Tdap and Td Vaccines (1 0 - Td or Tdap) 03/10/2033 03/10/2023, 10/19/2021, 05/05/2014, Additional history exists Medical Devices Not on file Procedures Procedure Name Priority Date/Time Associated Diagnosis Comments ECHO COMPLETE WO CONTRAST Routine 02/07/2025 9:08 AM EDT Palpitations US MFM OB FOLLOW-UP, 1 FETUS Routine 01/28/2025 3:16 PM EDT Suspected problem with growth not found EVENT MONITOR (IN OFFICE) Routine 01/20/2025 9:59 AM EDT Palpitations POCT EKG Routine 01/20/2025 Palpitations from Last 3 Months Results * Echo [...] Velocity Ratio 0.72 XCELERA Left Ventricle Mass 120.26030 [id number] 8 g XCELERA Interventricular Septum Diastolic Thickness [...] FOLLOW-UP, 1 FETUS (01/28/2025 3:16 PM EDT) Anatomical Region Laterality Modality OB-TRIMMER BUFFING WHEEL Ultrasound 01/28/2025 2:24 PM EDT Narrative 01/28/2025 4:05 PM EDT NAME: JORDI MARTINEZ : 2000 SEX: F Accession Number: [id number] ORDERING PHYSICIAN: TIARA SHETH REFERRING PHYSICIAN: LUIS EDUARDO PERES Coding ----- --------- Procedures 22694: Follow-up Ultrasound, per fetus 72694: Transvaginal Ultrasound (OB) Indication ----- --------- Screening for follow-up survey, Screening for cervical length. History ----- --------- OB History 3. Para 1 [id number] Maternal Assessment ----- --------- Physical Exam Height [...] EFW (oz) 6 oz EFW by: Hadlock ([id number]) Extended Tibia 52.1 mm 30w 6d 14% Prashanth Upkeep Worker 1.5 mm CM 6.5 mm 27% Nicolaides [...] Thorax RVOT view. LVOT view. 3-vessel view. 2-lrqalc-dcefsdi view. Situs. Aortic arch view. Bicaval view. [...] Note Abad Robertson MD - 01/28/2025 NAME: JORDI MARTINEZ : 2000 SEX: F Accession Number: [id number] ORDERING PHYSICIAN: TIARA SHETH REFERRING PHYSICIAN: LUIS EDUARDO PERES Coding ----- --------- Procedures 69193: Follow-up Ultrasound, per fetus 47965: Transvaginal Ultrasound (OB) Indication ----- --------- Screening for follow-up survey, Screening for cervical length. History ----- --------- OB History 3. Para 1 [id number] Maternal Assessment ----- --------- Physical Exam Height [...] EFW (oz) 6 oz EFW by: Hadlock ([id number]) Extended Tibia 52.1 mm 30w 6d 14% Prashanth Upkeep Worker 1.5 mm CM 6.5 mm 27% Nicolaides [...] Thorax RVOT view. LVOT view. 3-vessel view. 6-reojfb-gtnmpte view.Situs. Aortic arch view. Bicaval view. Ductal [...] can follow up with thepatient as necessary. Tiara Sheth MD IMG US ORDERABLES Final Result * [...]
--- OUTSIDE RECORDS SUMMARY | 2025-04-02 08:50 | XMS_ITS | Patient Health Record ---
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
--- OUTSIDE RECORDS SUMMARY | 2025-04-02 08:50 | XMS_ITS | Encounter Summary ---
Author Organization [facility] Address [address] [place] [address] Care Team Providers Care Comparative Sociology Professor Name Role Phone Lillie Barry NP Unavailable [phone] Amanda Urrutia MD Primary Care Provider [phone] Encounter Details Date Type Department Care Team (Late st Contact Info) Description 12/27/2024 External Result Encounter [facility] [address] [place] [address] Luis Eduardo Euceda CNM [address] [place], [place] [id number] Social History Tobacco Use Types Packs/Day Years [...] AM EDT Telemedicine [facility] [address] [place] [address] Luis Eduardo Euceda CNM [address] [place] [address] documented as of this encounter Procedures Procedure Name Priority Date/Time Associated Diagnosis Comments US OB 14+ WEEKS ANATOMY SCAN 12/27/2024 1:43 PM EDT documented in this encounter Results * US OB 14+ weeks anatomy scan (12/27/2024 1:43 PM EDT) Anatomical Region Laterality Modality Body Ultrasound 12/27/2024 1:43 PM EDT Narrative 12/27/2024 1:43 PM EDT THIS EXAM WAS PERFORMED AT [facility] NAME: JORDI MARTINEZ : 2000 SEX: F Accession Number: [id number] ORDERING PHYSICIAN: TIARA SHETH REFERRING PHYSICIAN: LUIS EDUARDO EUCEDA Coding ----- --------- Procedures [id number]: Ultrasound, uterus, real time with image documentation, and maternal evaluation plus detailed anatomic examination, transabdominal approach;single or first gestation Indication ----- --------- Screening for Anatomic Survey , Screening for IUGR History ----- --------- OB History 3. Para 1 [id number] Maternal Assessment ----- --------- Physical Exam Height [...] 2 lb 5 oz EFW by Hadlock ([id number]) Head / Face / Neck Biometry: Cephalic index 0.72 2% Nicojonahides Pathology Collector 1.9 mm CM 6.0 mm 29% Nicolaides [...] view. RVOT view. LVOT view. 3-vessel view. 6-juveez-vgdbggz view. Situs. Aortic arch view. Bicaval view. [...] primary OB provider unless otherwise specified by [facility]. Results forwarded to ordering provider so they can follow up with the patient as necessary. The copy-to physician of this order is LUIS EDUARDO Roberto The ordering physician of this order is TIARA Rico Procedure Note Radiology, Radiologist, - 12/27/2024 THIS EXAM WAS PERFORMED AT [facility] NAME: JUANJORDI MADDEN : 2000 SEX: F Accession Number: [id number] ORDERING PHYSICIAN: TIARA SHETH REFERRING PHYSICIAN: LUIS EDUARDO EUCEDA Coding ----- --------- Procedures [id number]: Ultrasound, uterus, real time with imagedocumentation, and maternal evaluation plus detailed anatomic examination, transabdominalapproach;single or first gestation Indication ----- --------- Screening for Anatomic Survey , Screening for IUGR History ----- --------- OB History 3. Para 1 [id number] Maternal Assessment ----- --------- Physical Exam Height [...] 2 lb 5 oz EFW by Hadlock ([id number]-FL) Head / Face / Neck Biometry: Cephalic index 0.72 2% Nicolaides Pathology Collector 1.9 mm CM 6.0 mm 29% Nicolaides [...] 4-chamber view. RVOT view. LVOT view. 3-vessel view.5-ijyvpz-ozyxerl view. Situs. Aortic arch view. Bicaval view. [...] byprimary OB provider unless otherwise specified by [facility]. Results forwarded to ordering provider so they can follow up with thepatient as necessary. The copy-to physician of this order is LUIS EDUARDO Roberto The ordering physician of this order is TIARA Rico us Luis Eduardo Euceda [facility] IM OB US PROCEDURES Final R esult documented in this encounter Visit Diagnoses Not on filedocumented in this encounter Care Teams Comparative Sociology Professor Relationship Specialty Start Date End Date Amanda Urrutia MD [address] [facility] [place] [address] PCP - General Family Medicine 04/10/24 Lillie Barry NP [address] [place] [address] Nurse Practitioner Family Medicine 04/10/24 documented as of this encounter
--- OUTSIDE RECORDS SUMMARY | 2025-04-02 08:50 | XMS_ITS ---
Author Organization [facility] Address [address] [place] [address] Care Team Providers Care Rod Cup Filler Name Role Phone Lillie Barry NP Unavailable [phone] Amanda Urrutia MD Primary Care Provider [phone] Inpatient Discharge Transitional Care Management (TCM) Status:Closed (Closed) Start date:03/22/2025 Enrollment date:03/24/2025 Enrollment reason:Identified using hospital discharge data End date:03/24/2025 Close reason:Not eligible Overview Patient discharged from [facility] on 03/22. Please contact for hospital MEHUL and schedule follow-up appointment within 7-14 days. Continued Care and Services Coordination
--- OUTSIDE RECORDS SUMMARY | 2025-04-02 08:50 | XMS_ITS | Encounter Summary ---
Author Organization [facility] Address [address] [place] [address] Care Team Providers Care Client Renewal Specialist Name Role Phone Lillie Barry NP Unavailable [phone] Amanda Urrutia MD Primary Care Provider [phone] Encounter Details Date Type Department Care Team (Late st Contact Info) Description 01/07/2025 Results Follow-Up [facility] [address] [place] [address] Krista Euceda CNM [address] [place], [place] [id number] Social History Tobacco Use Types Packs/Day Years [...] AM EDT Telemedicine [facility] [address] [place] [address] Krista Euceda CNM [address] [place] [address] documented as of this encounter Visit Diagnoses Not on filedocumented in this encounter Care Teams Client Renewal Specialist Relationship Specialty Start Date End Date Amanda Urrutia MD [address] [place] [address] PCP - General Family Medicine 04/10/24 Lillie Barry NP [address] [facility] [place] [address] Nurse Practitioner Family Medicine 04/10/24 documented as of this encounter
--- OUTSIDE RECORDS SUMMARY | 2025-04-02 08:50 | XMS_ITS | Encounter Summary ---
Author Organization [facility] Address [address] [place] [address] Care Team Providers Care Personal Lines Insurance Agent Name Role Phone Lillie Barry NP Unavailable [phone] Amanda Urrutia MD Primary Care Provider [phone] Encounter Details Date Type Department Care Team (Late st Contact Info) Description 12/31/2024 Results Follow-Up [facility] [address] [place] [address] Amanda Anaya MA Social History [...] AM EDT Telemedicine [facility] [address] [place] [address] Krista Euceda, CNM [address] [place] [address] documented as of this encounter Visit Diagnoses Not on filedocumented in this encounter Care Teams Personal Lines Insurance Agent Relationship Specialty Start Date End Date Amanda Urrutia MD [address] [facility] [place] [address] PCP - General Family Medicine 04/10/24 Lillie Barry NP [address] [place] [address] Nurse Practitioner Family Medicine 04/10/24 documented as of this encounter
--- OUTSIDE RECORDS SUMMARY | 2025-04-02 08:50 | XMS_ITS | Encounter Summary ---
Author Organization [facility] Address [address] [place] [address] Care Team Providers Care Psychology Instructor Name Role Phone Lillie Barry NP Unavailable [phone] Amanda Urrutia MD Primary Care Provider [phone] Encounter Details Date Type Department Care Team (Late st Contact Info) Description 11/01/2024 Orders Only [facility] [address] [place] [address] Unallocated, [facility] Provider, [address] [place] [address] Social History Tobacco Use Types Packs/Day Years [...] AM EDT Telemedicine [facility] [address] [place] [address] Krista Euceda CNM [address] [place] [address] documented as of this encounter Procedures Procedure Name Priority Date/Time Associated Diagnosis Comments US OB TRANSVAGINAL Routine 11/01/2024 12:43 PM EST documented in this encounter Results * US OB transvaginal (11/01/2024 12:43 PM EST) Anatomical Region Laterality Modality Body Ultrasound us [facility] Provider Unallocated MD DERW OB US PROCEDURE S Final Result documented in this encounter Visit Diagnoses Not on filedocumented in this encounter Care Teams Psychology Instructor Relationship Specialty Start Date End Date Amanda Urrutia MD [address] [place], [place] [id number] PCP - General Family Medicine 04/10/24 Lillie Barry NP [address] [place], [place] [phone] Nurse Practitioner Family Medicine 04/10/24 documented as of this encounter
--- OUTSIDE RECORDS SUMMARY | 2025-04-02 08:50 | XMS_ITS | Clinical Summary ---
Author Organization [facility] Address [address] [place] [address] Care Team Providers Care Railroad Dispatcher Name Role Phone Lillie Barry NP Unavailable [phone] Amanda Urrutia MD Primary Care Provider [phone] Allergies No known active allergies Medications MV [...] Encounters Date Type Department Care Team Description 03/24/2025 Patient Outreach [facility] [address] [place] [id number] Christa Davis LPN 03/20/2025 Clinisync Result Encounter [facility] External Department Unsolicited Krista Euceda CNM 03/18/2025 9:30 AM EDT Routine [facility] [address] [place] [address] Krista Euceda CNM Encounter for supervision of other normal , third trimester ([facility]) (Primary Dx); History of cardiac murmur 03/18/2025 Bamboo flowsheet [facility] [address] [place] [address] Krista Euceda, CNAllie 03/12/2025 9:30 AM EDT Routine [facility] [address] [place] [address] Krista Euceda, CNM Encounter for supervision of other normal , third trimester ([facility]) (Primary Dx) 03/12/2025 Bamboo flowsheet [facility] [address] [place] [address] Krista Euceda, CNM 03/05/2025 2:00 PM EDT Routine [facility] [address] [place] [address] Krista Euceda, CNAllie Encounter for supervision of other normal , third trimester ([facility]) (Primary Dx) 03/05/2025 Bamboo flowsheet [facility] [address] [place] [address] Krista Euceda, CNM 02/26/2025 10:30 AM EDT Routine [facility] [address] [place] [address] Krista Euceda, CNAllie Encounter for supervision of other normal , third trimester ([facility]) (Primary Dx) 02/19/2025 9:30 AM EDT Routine [facility] [address] [place] [address] Krista Euceda, CNAllie Encounter for supervision of other normal , third trimester ([facility]) (Primary Dx); screening for streptococcus B ([facility]) 02/19/2025 Bamboo flowsheet [facility] [address] [place] [address] Krista Euceda, CNM 02/12/2025 9:30 AM EDT Routine [facility] [address] [place] [address] Krista Euceda CNM Encounter for supervision of other normal , third trimester ([facility]) (Primary Dx); History of cardiac murmur 02/12/2025 Bamboo flowsheet [facility] [address] [place] [address] Krista Euceda CNM 01/29/2025 9:15 AM EDT Routine [facility] [address] [place] [address] Krista Euceda CNM Encounter for supervision of other normal , third trimester ([facility]) (Primary Dx) 01/29/2025 Bamboo flowsheet [facility] OB [address] [place] [address] Krista Euceda CNM 01/15/2025 10:00 AM EDT Routine [facility] [address] [place] [address] Krista Euceda CNM Encounter for supervision of other normal , third trimester ([facility]) (Primary Dx) 01/15/2025 Bamboo flowsheet [facility] OB [facility] [place] [address] [place], [place] 01/07/2025 Results Follow-Up [facility] [address] [place] [address] [place], [place] 01/07/2025 Results Follow-Up [facility] [address] [place] [address] Krista Euceda CNM from Last 3 Months Immunizations Immunization Administration [...] MMR 03/28/2023,12/21/2006,02/24/2003 Meningococcal MCV4O 03/13/2019 PPD Test 04/22/2024,,03/17/2023,03/10 Tdap 03/10/2023,10/19/2021,05/05/2014 Varicella 03/28/2023,03/13/2019,02/24/2003 Family History Medical [...] 11:30 AM EDT Telemedicine [facility] [address] [place] [address] Krista Euceda, CNM [address] [place] [address] Health Maintenance Due Date Last Done Comments Influenza Vaccine (#1) 2025 07/17/2024, 2022 Procedures Procedure Name Priority Date/Time Associated Diagnosis Comments [facility] CBC WITH PLATELET NO DIFFERENTIAL Routine 03/20/2025 5:22 AM EDT [facility] DRUG SCREEN RAPID (URINE) Routine 03/20/2025 5:15 AM EDT STREPTOCCOUS, GROUP B CULTURE Routine 02/19/2025 11:44 AM EDT screening for streptococcus B ([facility]) GLUCOSE TOLERANCE TEST, GESTATIONAL,4SPEC(10 0G) Routine 01/03/2025 8:06 AM EDT Elevated glucose tolerance test from Last 3 Months Results * (ABNORMAL) [facility] CBC WITH PLATELET NO DIFFERENTIAL (03/20/2025 5:22 [...] MCHC 34.4 29.9 - 35.2 g/dL [facility] TB RDW 12.7 11.0 - 15.0 % [facility] TBH PLT 174 150 - 450 10 3/uL [facility]H TBH MPV 10.9 9.5 - 13.5 fL TB 03/20/2025 5:22 AM EDT 03/20/2025 5:30 AM EDT Narrative [facility] - 03/20/2025 5:35 AM EDT Krista Euceda CNM [facility] Final Result [facility] TB * TB DRUG SCREEN RAPID (URINE) (03/20/2025 5:15 AM EDT) Pathologist [facility] CANNABINOID SCREEN URINE NEGATIVE NEGATIVE [facility]H PHENCYCLIDINE [...] - 03/20/2025 5:47 AM EDT us Krista SANTOSM [facility] Final Result Performing Organization Address [facility] de Phone Number [facility] * STREPTOCCOUS, GROUP B CULTURE (02/19/2025 11:44 AM EDT) MICRO NUMBER [id number] [facility] SPECIMEN QUALITY Adequate [facility] SOURCE VAGINAL/ANOR [...] Performing Organization Information Site ID: QPT Name: [facility] Address: [address] [place] [address], [address] [place] [phone] Director: Melvin Flood MD us Krista Euceda CNM LAB BODY FLUIDS AND STOOLS O RDERABLES Final Result Performing Organization Address [facility] de Phone Number [facility] * GLUCOSE TOLERANCE TEST, GESTATIONAL,4SPEC(100G) (01/03/2025 [...] Performing Organization Information Site ID: QPT Name: [facility] Address: [address] [place] [address], [address] [place] [phone] Director: Melvin Flood MD us Krista L Floro CNM LAB BLOOD ORDERABLES Final R esult [facility] from Last 3 Months Insurance [employer] Care Teams Railroad Dispatcher Relationship Specialty Start Date End Date Amanda Urrutia MD [address] [place] [address] PCP - General Family Medicine 04/10/24 Lillie Barry NP [address] [place], [place] [id number] Nurse Practitioner Family Medicine 04/10/24
== END 2025-04-02 14:36 | disposition home or self-care (01) ==
LOC: FBCO 08:47
PROVIDERS: PCP Nurse Practitioner Family; Visit Provider Midwife
DX: Z39.1 Encounter for care and examination of lactating mother (principal)
CPT/HCPCS: G0463